=== PATIENT | male | born 1970 | race Caucasian/White ===

== ENCOUNTER 2017-07-17 19:13 | Emergency (ER) | payer MEDICAID ==
[2017-07-17 20:03] LABS: BASOPHILS 0.4 % (0-2); EOSINOPHILS 1.9 % (0-7); HEMATOCRIT 28.9 % (42.0-54.0); HEMOGLOBIN 9.2 g/dL (13.5-17.5); IMMATURE GRANULOCYTES 0.2 % (0-5); LYMPHOCYTES 30.4 % (15-50); MCH 24.9 pg (26.0-34.0); MCHC 31.8 g/dL (31.0-37.0); MCV 78.3 fL (80.0-100.0); MEAN PLATELET VOLUME 9.8 fL (7.4-10.4); MONOCYTES 5.2 % (2-11); NEUTROPHILS 61.9 % (40-80); PLATELET COUNT 171 10x3/uL (130-400); RBC 3.69 10x6/uL (4.20-6.10); RDW 15.1 % (11.5-14.5); WBC 5.2 10x3/uL (4.8-10.8)
[2017-07-17 20:21] LABS: ALBUMIN 3.1 g/dL (3.4-5.0); ALKALINE PHOSPHATASE 134 U/L (46-116); ALT (SGPT) 16 U/L (10-68); BILIRUBIN - TOTAL 0.17 mg/dL (0.2-1.3); CALC OSMOLALITY 293 mosm/kg (275-300); CALCIUM 8.9 mg/dL (8.5-10.1); CARBON DIOXIDE 25.1 mmol/L (21.0-32.0); CHLORIDE - SERUM 104 mmol/L (98-107); CREATININE - SERUM 1.7 mg/dL (0.6-1.3); GLUCOSE 334 mg/dL (74-106); POTASSIUM - SERUM 4.5 mmol/L (3.5-5.1); PROTEIN - SERUM 7.2 g/dL (6.4-8.2); SODIUM 139 mmol/L (136-145); UREA NITROGEN 22 mg/dL (7-18); eGFR NON AFRICAN AMERICAN 46 mL/min (90-120)
[2017-07-17 20:28] LABS: CHOL - HDL RATIO 4.1 ratio (2.3-4.9); CHOLESTEROL, TOTAL 128 mg/dL (0-200); CKMB 1.3 U/L (0.0-3.6); CREATINE KINASE 191 UL (21-232); HDL CHOLESTEROL 31 mg/dL (32-96); LDL CHOLESTEROL 62 mg/dL (0-100); TRIGLYCERIDE 179 mg/dL (30-200)
[2017-07-17 20:29] LABS: TROPONIN-I < 0.017 ng/mL (0.000-0.060)
[2017-09-02 11:48] VITALS: BMI 34.6
== END 2017-07-18 03:07 | disposition home or self-care (01) ==
LOC: D.ER 19:13
PROVIDERS: Emergency Medicine
DX: J20.9 Acute bronchitis, unspecified (principal); J06.9 Acute upper respiratory infection, unspecified; I50.9 Heart failure, unspecified; I51.7 Cardiomegaly; Z95.0 Presence of cardiac pacemaker; E11.9 Type 2 diabetes mellitus without complications; I10 Essential (primary) hypertension

== ENCOUNTER 2017-09-01 18:20 | Observation (INO) | payer MEDICARE ==
[~2017-09-01] VITALS: Ht 188 cm; Wt 123.3 kg
--- NOTE | ~2017-09-01 | OP ---
PATIENT NAME: ALEXANDER ASHTON MEDICAL RECORD: [id number] :74 LOCATION:D.M2 D.2134 ADMISSION DATE:09/02/17 SURGEON: CRUZ SHERIDAN MD DATE OF OPERATION: 09/02/2017 DATE OF SERVICE: 09/02/2017 PROCEDURES: 1. Left heart catheterization. 2. Selective coronary angiography. 3. Left ventriculogram. INDICATION: Chest pain, cardiomyopathy. PROCEDURE IN DETAIL: After informed consent was obtained and after a detailed explanation of risks, benefits as well as alternative therapies, the patient elected to proceed with angiogram and heart catheterization. The right femoral area was prepped and draped in normal sterile fashion. Right femoral artery was cannulated via modified Seldinger technique with placement of 6-Azerbaijani sheath. All catheters exchanged through this sheath. FINDINGS: Left ventriculogram was performed in the standard 30-degree ESTRADA view, reveals global hypokinesis throughout all segments. Overall ejection fraction is markedly reduced at 20%. SELECTIVE CORONARY ANGIOGRAPHY: Left main, left anterior descending, left circumflex, right coronary are smooth-walled vessels with no angiographic evidence of coronary artery disease. OVERALL IMPRESSION: 1. No angiographic evidence of coronary artery disease. 2. Nonischemic cardiomyopathy. Center medical management on treatment of cardiomyopathy. Chest pain is either secondary to the cardiomyopathy or noncardiac in etiology. TRANSINT:[id number] Voice Confirmation ID: [id number] DOCUMENT ID: [id number] CRUZ SHERIDAN MD at 1025 CC: [id number] DICTATION DATE: 09/02/17 1546 ASSOCIATE PROFESSOR OF ART HISTORY: 09/02/178 DIS IN 09/03/17 [place] [id number] [place] [id number]
--- NOTE | ~2017-09-01 | HEMODYNAMI ---
PATIENT:ALEXANDER ASHTON MEDICAL RECORD: [id number] : 74 LOCATION:[facility] D2134 ADMISSION DATE: 09/02/17 Generatedon:09/02/201715:47 Patient name: ALEXANDER ASHTON Patient #: [id number] SSN: : 1970 Date of study: 09/02/2017 Page: Of Hemodynamic Procedure Report Patient Data Patient Demographics Procedure consent was obtained First Name: ALEXANDER Gender: Male Last Name: DAISHA : 1970 Patient #: [id number] Age: 47 year(s) Race: Unknown Additional ID: [id number] Contact details Address: [address] [place] [address] State: [place] City: [place] Zip code: [address] Past Medical History Allergies: No known allergies Admission Admission Data Admission Date: 09/02/2017 Admission Time: 2:13 Admit Source: Other Room #: D.2134 Procedure Procedure Types Cath Procedure Diagnostic Procedure LHC LH w/Coronaries Miscellaneous Procedures Moderate Sedation up to 15 minutes Procedure Description Procedure Date Procedure Date: 09/02/2017 Procedure Start Time: 15:37 Procedure End Time: 15:46 Procedure Staff Name Function Al Pierson MD Performing Physician Jesse Paige RT Monitor Natalie Sosa RT Scrub Nikos Barnett RN Nurse Procedure Data Cath Procedure Fluoroscopy Diagnostic fluoroscopy Total fluoroscopy Time: 0.8 time: 0.8 min min Diagnostic fluoroscopy Total fluoroscopy dose: 348 dose: 348 mGy mGy Contrast Material Contrast Material Type Amount (ml) Isovue 300 51 Entry Location Entry Primary Successful Side Size Upsize Upsize Entry Closure Succes sful Closure Location (Fr) 1 (Fr) 2 (Fr) Remarks Device Remarks Femoral Right 5 Fr Exoseal artery Estimated blood loss: 5 ml Diagnostic catheters Device Type Used For End Catheter Placement MULTIPACK Pigtail 5 Fr Procedure catheter MULTIPACK JL 4.0 5Fr Procedure catheter MULTIPACK 3DRC 5Fr Procedure catheter Procedure Complications No complications Procedure Medications Medication Administration Route Dosage Oxygen NC 2 l/min Lidocaine 2% added to field 20 Heparin Flush Bag added to field 2 bags (1000units/500ml NS) 0.9% NaCl I.V. 100 ml/hr Versed I.V. 1 mg Fentanyl I.V. 50 mcg Versed I.V. 1 mg Fentanyl I.V. 50 mcg Hemodynamics Rest Heart Rate: 97 (bpm) Snapshots Pre Cath Intra NCS Post Cath Vital Signs Time Heart Resp SPO2 etCO2 NIBP (mmHg) Rhythm Pain Sedation Rate (ipm) (%) (mmHg) Status Level (bpm) 15:21:46 94 18 94 110/87(102) NSR 7 (11) 10(A) , Very intense 15:26:28 94 16 98 49.1 124/86(101) NSR 7 (11) 10(A) , Very intense 15:32:00 94 16 98 44.7 136/70(81) NSR 7 (11) 10(A) , Very intense 15:36:49 93 15 98 46.2 115/85(107) NSR 7 (11) 10(A) , Very intense 15:41:36 91 16 97 43.2 130/67(116) NSR 7 (11) 9(A) , Very intense 15:46:14 92 16 96 42.4 124/79(112) NSR 7 (11) 10(A) , Very intense Medications Time Medication Route Dose Verified Delivered Reason Notes Effe ctiveness by by 15:22:09 Oxygen NC 2 Al Longoriaie used for l/min Dangelo Barnett RN procedure 15:22:16 Lidocaine 2% added 20ml Al Melendez for local to vial Dangelo Pierson MD anesthetic field 15:22:22 Heparin Flush added 2 Al Al used for Bag to bags Dangelo Pierson MD procedure (1000units/500ml field NS) 15:22:31 0.9% NaCl I.V. 100 Alshelbie Longoriaie Per ml/hr Dangelo Barnett RN physician 15:36:26 Versed I.V. 1 mg Al Knott for Dangelo Barnett RN sedation 15:36:33 Fentanyl I.V. 50 Al Longoriaie for mcg Dangelo Barnett RN sedation 15:40:48 Versed I.V. 1 mg Al Knott for Dangelo Barnett RN sedation 15:40:52 Fentanyl I.V. 50 Al Knott [facility] [place] Miriam MD Barnett RN sedation Procedure Log Time Note 15:03:13 Informed consent obtained and on chart 15:03:17 Admit Source: Other 15:03:34 Diagnostic Cath status Elective 15:03:35 Nikos Barnett RN sent for patient. Start room use. 15:03:36 Time tracking: Regular hours 15:03:40 Plan of Care:Hemodynamics will remain stable., Cardiac rhythm will remain stable., Comfort level will be maintained., Respiratory function will remain adequate., Patient/ family verbilizes understanding of procedure., Procedure tolerated without complication., Recovers from procedure without complications.. 15:07:10 H&P Date Dictated: 09/02/2017 Within 30 days and on chart.. 15:07:58 Lab Result : BUN 23 mg/dl 15:07:58 Lab Result : Creatinine 1.7 mg/dl 15:07:58 Lab Result : Hemoglobin 10.2 g/dl 15:07:59 Lab Result : Hematocrit 31.7 % 15:08:21 Lab results completed and on chart. 15:10:49 Patient received from Med II to CCL 1 Alert and oriented. Tansferred to table in Supine position. 15:10:50 Warm blankets applied, and karen hugger turned on for patient comfort. 15:10:51 Correct patient and procedure confirmed by team. 15:10:51 ECG and BP/O2 sat monitors applied to patient. 15:10:52 Pre-procedure instructions explained to patient. 15:10:53 Pre-op teaching completed and patient verbalized understanding. 15:10:55 Family in patients room. 15:10:56 Patient NPO since Midnight. 15:11:06 Patient allergic to No known allergies 15:11:07 Is the patient allergic to Iodine/contrast media? No. 15:20:47 Vital chart was started 15:21:42 Patient diabetic? Yes. 15:21:43 If diabetic: On Metformin? No 15:21:45 Previous problem with sedation/anesthesia? No ? 15:21:46 Snore? No 15:21:47 Sleep apnea? No 15:21:48 Deviated septum? No 15:21:48 Opens mouth fully? Yes 15:21:49 Sticks out tongue? Yes 15:21:50 Airway obstruction? No ? 15:21:52 Dentures? No ? 15:21:57 ACC The patient was administered the following blood thiners within the last 24 hours: ACCLovenox 15:22:00 Is patient on blood thinner?Yes 15:22:09 Oxygen 2 l/min NC was administered by Nikos Barnett RN; used for procedure; 15:22:16 Lidocaine 2% 20ml vial added to field was administered by Al Pierson MD; for local anesthetic; 15:22:22 Heparin Flush Bag (1000units/500ml NS) 2 bags added to field was administered by Al Pierson MD; used for procedure; 15:22:31 0.9% NaCl 100 ml/hr I.V. was administered by Nikos Barnett RN; Per physician; 15:22:36 Pre procedure: right dorsailis pedis pulse 1+ Palpable, but thready & weak; easily obliterated 15:22:39 Patient pain scale 7/10 ?. 15:22:43 IV patent on arrival in right hand with 0.9% NaCl at KVO. 15:22:47 Right groin area was prepped with chlora-prep and draped in sterile fashion 15:22:48 Alarms reviewed by R. N. 15:22:49 Sharps counted by scrub and verified by R.N. 15:22:51 Use device set Femoral Dx 15:22:54 ACIST Manifold (79093) opened to sterile field. 15:22:55 ACIST Hand Control (44008) opened to sterile field. 15:22:56 ACIST Syringe (98306) opened to sterile field. 15:22:56 Bag Decanter () opened to sterile field. 15:22:57 Medline Cath Pack ([id number]) opened to sterile field. 15:22:59 Tegaderm 4 x 4 (1626W) opened to sterile field. 15:23:02 PERCUTANEOUS ENTRY 19GA needle opened to sterile field. 15:23:03 SHEATH 5FR Mears (YPE554) opened to sterile field. 15:23:03 DIAGNOSTIC WIRE .035 260cm J wire (611641) opened to sterile field. 15:23:04 DIAGNOSTIC Multipack 5Fr catheter set (CV2921) opened to sterile field. 15:23:11 Baseline sample Acquired. 15:23:15 Rhythm: sinus tachycardia 15:25:10 IV Extension Set opened to sterile field. 15::35 Physician paged 15:29:07 Zero performed for pressure channel P1 15::43 Physician arrived 15:: --------ALL STOP TIME OUT------ 15:35:44 Final Timeout: patient, procedure, and site verified with staff and physician. All members of the team are in agreement. 15:35:46 Right groin site verified by team. 15:35:49 Physical assessment completed. ASA score P 2 - A patient with mild systemic disease as per Al Pierson MD. 15:35:52 Sedation plan: IV Moderate Sedation Medication:Versed, Fentanyl 15:36:26 Versed 1 mg I.V. was administered by Nikos Barnett RN; for sedation; 15:36:33 Fentanyl 50 mcg I.V. was administered by Nikos Barnett RN; for sedation; 15:37:24 Procedure started. 15:37:25 Full Disclosure recording started 15:37:27 Local anesthetic to right femoral artery with Lidocaine 2% by Al Pierson MD.INITIAL ACCESS ONLY 15:38:04 A 5 Fr sheath was inserted into the Right Femoral artery 15:38:50 A MULTIPACK Pigtail 5 Fr catheter was advanced over the wire and used for Procedure. 15:39:00 LV gram done using ESTRADA 15:39:02 Injector settings: Ml/sec: 10, Volume: 20, 15:39:12 EF : 20 % 15:39:14 Catheter exchanged over wire. 15:39:37 A MULTIPACK JL 4.0 5Fr catheter was advanced over the wire and used for Procedure. 15:39:59 LCA angiography performed. 15:40:36 Catheter exchanged over wire. 15:40:42 A MULTIPACK 3DRC 5Fr catheter was advanced over the wire and used for Procedure. 15:40:43 EXOSEAL 5Fr (EX500) opened to sterile field. 15:40:48 Versed 1 mg I.V. was administered by Nikos Barnett RN; for sedation; 15:40:52 Fentanyl 50 mcg I.V. was administered by Nikos Barnett RN; for sedation; 15:41:21 RCA angiography performed. 15:41:28 Catheter removed. 15:41:51 Sheath removed intact; hemostasis achieved with Exoseal to the Right Femoral artery. 15:41:54 Procedure ended.(Physican Out) 15:44:31 Fluoroscopy time 00.80 minutes. 15:44:36 Fluoroscopy dose: 348 mGy 15:44:36 Flurop Dose total: 348 15:44:40 Contrast amount:Isovue 300 51ml. 15:44:41 Sharps counted by scrub and verified by R.N. 15:44:51 Insertion/operative site no bleeding no hematoma. 15:44:54 Post-op/insertion site Right Femoral artery dressed using a 4 x 4 and Tegaderm. 15:44:57 Post right femoral artery:stable, soft, clean and dry 15:44:59 Post Procedure Pulses reassessed and unchanged 15:45:16 Post-procedure physical assessment completed. ASA score P 2 - A patient with mild systemic disease as per Al Pierson MD. 15:45:22 Post procedure rhythm: unchanged. 15:45:24 Estimated blood loss: 5 ml 15:45:25 Post procedure instruction explained to patient.Patient verbalizes understanding. 15:45:26 Patient needs reinforcement of post procedure teaching. 15:45:32 Procedure type changed to Cath procedure, Diagnostic procedure, LHC, LHC w/Coronaries, Miscellaneous Procedures, Moderate Sedation up to 15 minutes 15:45:46 Procedure and supply charges have been captured, reviewed, submitted and are correct. 15:45:48 Procedure Complication : No complications 15:45:50 Vital chart was stopped 15:45:50 See physician's report for complete and final results. 15:45:52 Report given to PCU. 15:45:58 Patient transfered to PCU with Stretcher. 15:46:01 Procedure ended. 15:46:01 Full Disclosure recording stopped 15:46:04 End room use (Document Last) Device Usage Item Name Manufacture Quantity Catalog Hospital Part Current Minimal Lot# / Number Charge Number Stock Stock Serial# Code ACIST Acist 1 18292 469222 265283 971028 5 Manifold Medical (58139) Systems Inc ACIST Hand Acist 1 84536 479613 314335 407614 5 Control Medical (03804) Systems Inc ACIST Acist 1 31642 460637 022621 222924 20 Syringe [employer]Maven.com (38728) Systems Inc Bag Decanter Microtek 1 036828 81264 132774 5 () Medical Inc. Medline Cath Cardinal 1 [id number] 411969 43969 061623 5 Pack Health ([id number]) Tegaderm 4 x 3M 1 1626W 133104 681358 639281 5 4 (1626W) PERCUTANEOUS Cook Medical 1 T68703 735532 232702 5 ENTRY 19GA needle SHEATH 5FR Terumo 1 QJM522 879563 115926 161586 40 Mears (ZKF790) DIAGNOSTIC St Jarad 1 792042 560666 207624 933083 30 WIRE .035 260cm J wire (147463) DIAGNOSTIC Cardinal 1 OY8620 720853 46151 158721 30 Multipack Health 5Fr catheter set (KF6100) IV Extension Hospira 1 02376-03 811221 57641 227490 5 Set MULTIPACK Cardinal 1 389524 5 Pigtail 5 Fr Health catheter MULTIPACK JL Cardinal 1 006431 5 4.0 5Fr Health catheter MULTIPACK Cardinal 1 566779 5 3DRC 5Fr Health catheter EXOSEAL 5Fr Cardinal 1 EX500 924481 849896 776135 10 (EX500) Health Signature Audit [place] Stage Time Signature Unsigned Intra-Procedure 09/02/2017 Jesse Paige 3:47:28 PM RT(R) Signatures Monitor : Jesse Paige RT Signature : Date : Time : [place] [id number] [place] [address]
--- NOTE | ~2017-09-01 | DS ---
PATIENT:ALEXANDER ASHTON :74 MEDICAL RECORD: [id number] DISCHARGE SUMMARY ADMISSION DATE: 09/02/17 DISCHARGE DATE: 09/03/17 DIAGNOSES: 1. Nonischemic cardiomyopathy. 2. Chest pain. 3. Hematemesis, gastroesophageal reflux disease. HISTORY AND HOSPITAL COURSE: This is a gentleman, who has a known cardiomyopathy. Ejection fraction in the 20% range. He is followed by grinding machine tender in [place]. He presented with chest pain. He has not had a cardiac catheterization. He, however, underwent cardiac catheterization revealing no significant coronary artery disease. Ejection fraction was in the 20% range. His chest pain is most likely secondary to GERD. He had minimal hematemesis. He was started on GI-directed therapy. His chest pain totally resolved. He was discharged home with muen-kuk-sjjygww Nexium or Prilosec twice a day. He will follow up with his physician in [place], especially if the hematemesis continues. TRANSINT:[id number] Voice Confirmation ID: [id number] DOCUMENT ID: [id number] CRUZ SHERIDAN MD at 1025 CC: [id number] DICTATION DATE: 09/03/17 1018 ANATOMY PROFESSOR: 09/04/17 0033 DIS IN 09/03/17 [place] [address] [place] [address]
--- NOTE | ~2017-09-01 | EC ---
PATIENT:ALEXANDER ASHTON DATE OF SERVICE: 09/02/17 SEX: M MEDICAL RECORD: [id number] DATE OF : 74 LOCATION:D.M2 D.213 AGE OF PATIENT: 47 ADMISSION DATE: 09/02/17 REFERRING PHYSICIAN: INTERPRETING PHYSICIAN: CRUZ SHERIDAN MD ECHOCARDIOGRAM REPORT ECHO CHARGES CLINICAL DIAGNOSIS: ECHOCARDIOGRAPHIC MEASUREMENTS (adult normal given) AC root (d.<3.7cm) cm LV Septum d (<1.2 cm> cm Valve Excursion cm LV Septum (systole) cm Left Atria (s.<4.0cm> cm LVPW d(<1.2cm) cm RV (d.<2.3cm) cm LVPW (sytole) cm LV diastole(<5.6CM) cm MV E-F(>70mm/sec) cm LV systole cm LVOT Diameter cm MV exc.(>10mm) cm Est.ejection fraction (50-75%) % Pericardial Effusion DOPPLER: LVIT cm/sec A cm/sec E cm/sec LA cm/sec RVSP mmHg LVOT cm/sec AOP1/2T m/s Asc. Ao cm/sec RVOT cm/sec RA cm/sec PA cm/sec AV Gradient Peak mmHg AV Mean mmHg AV Area cm MV Gradient Peak mmHg MV Mean mmHg MV Area cm COMMENTS: Generator Rebuilder: Solid Waste Engineer: GRADY DATE OF SERVICE: 09/02/2017 PROCEDURE: Echocardiogram. FINDINGS: 1. Left ventricular chamber size is dilated. Left ventricular systolic function is markedly reduced, overall ejection fraction 20%. 2. Left atrium, right atrium, and right ventricle chamber sizes are dilated giving 4-chamber dilatation. Left atrium measures 4.7 cm. 3. Valvular structures have normal structure and motion. ECHOCARDIOGRAM REPORT [id number] ALEXANDER ASHTON 4. Doppler interrogation reveals moderate mitral regurgitation, moderate tricuspid regurgitation, no other valvular insufficiency or stenosis. Pulmonary systolic pressure is estimated 41 mmHg. 5. No evidence of pericardial effusion or left ventricular thrombus. TRANSINT:[id number] Voice Confirmation ID: [id number] DOCUMENT ID: [id number] CRUZ SHERIDAN MD at 1025 CC: [id number] DICTATION DATE: 09/02/17 1228 LAW RESEARCHER: 09/02/17 1240 DIS IN 09/03/17 [facility] [address] [place] [address]
[2017-09-01 19:10] LABS: HEMATOCRIT 31.7 % (42.0-54.0); HEMOGLOBIN 10.2 g/dL (13.5-17.5); LYMPHOCYTES 32.7 % (15-50); MCH 25.8 pg (26.0-34.0); MCHC 32.2 g/dL (31.0-37.0); MCV 80.3 fL (80.0-100.0); MEAN PLATELET VOLUME 9.5 fL (7.4-10.4); NEUTROPHILS 59.7 % (40-80); PLATELET COUNT 176 10x3/uL (130-400); RBC 3.95 10x6/uL (4.20-6.10); RDW 16.4 % (11.5-14.5)
[2017-09-01 19:23] LABS: ALBUMIN 3.3 g/dL (3.4-5.0); ALKALINE PHOSPHATASE 134 U/L (46-116); ALT (SGPT) 17 U/L (10-68); BILIRUBIN - TOTAL 0.18 mg/dL (0.2-1.3); CALC OSMOLALITY 289 mosm/kg (275-300); CALCIUM 8.8 mg/dL (8.5-10.1); CARBON DIOXIDE 28.1 mmol/L (21.0-32.0); CHLORIDE - SERUM 105 mmol/L (98-107); CREATININE - SERUM 1.7 mg/dL (0.6-1.3); GLUCOSE 190 mg/dL (74-106); POTASSIUM - SERUM 3.9 mmol/L (3.5-5.1); PROTEIN - SERUM 7.1 g/dL (6.4-8.2); SODIUM 141 mmol/L (136-145); UREA NITROGEN 23 mg/dL (7-18); eGFR NON AFRICAN AMERICAN 46 mL/min (90-120)
[2017-09-01 19:34] LABS: CKMB 0.8 U/L (0.0-3.6); CREATINE KINASE 264 UL (21-232); TROPONIN-I 0.026 ng/mL (0.000-0.060)
[2017-09-02 02:07] LABS: CKMB 0.8 U/L (0.0-3.6); CREATINE KINASE 223 UL (21-232); TROPONIN-I 0.031 ng/mL (0.000-0.060)
[2017-09-02] MEDS ORDERED: FLOMAX0.4 MG PO (03:29)
[2017-09-02] MEDS ORDERED: COREG25 MG PO (03:29)
[2017-09-02] MEDS ORDERED: CYCLOBENZAPRINE10 MG PO (03:30)
[2017-09-02] MEDS ORDERED: LASIX40 MG PO (03:30)
[2017-09-02] MEDS ORDERED: SEROQUEL200 MG PO (03:30)
[2017-09-02] MEDS ORDERED: ASPIRIN325 MG PO (03:31)
[2017-09-02] MEDS ORDERED: NOVOLOG MIX 70/10 ML SQ ×2 (03:32)
[2017-09-02 03:33] VITALS: BP 143/92; BMI 34.7
[2017-09-02 07:55] VITALS: BP 154/98
[2017-09-02 07:58] LABS: CKMB 0.9 U/L (0.0-3.6); CREATINE KINASE 211 UL (21-232); TROPONIN-I 0.029 ng/mL (0.000-0.060)
[2017-09-02 11:20] VITALS: BP 102/56
[2017-09-02 11:48] VITALS: Ht 188 cm; Wt 123.3 kg
[2017-09-02 13:56] LABS: CKMB 0.8 U/L (0.0-3.6); CREATINE KINASE 201 UL (21-232); TROPONIN-I 0.023 ng/mL (0.000-0.060)
[2017-09-02 19:00] VITALS: BP 156/88
[2017-09-03 04:00] VITALS: BP 146/76
[2017-09-03 08:46] VITALS: BP 143/89
[2017-09-03] MEDS ORDERED: NEXIUM40 MG PO (11:07)
[2017-09-03 11:23] VITALS: BP 132/84
[2017-09-03 14:51] VITALS: BP 130/82
[2017-09-03 15:39] VITALS: BP 131/81
== END 2017-09-03 16:55 | disposition home or self-care (01) ==
LOC: D.ER 18:20 → D.M2 09-02 02:13 → OBSVTIME 09-02 02:13 → D.M2 09-03 16:55
PROVIDERS: Family Medicine
DX: R07.89 Other chest pain (principal); I42.9 Cardiomyopathy, unspecified; E11.9 Type 2 diabetes mellitus without complications; I11.0 Hypertensive heart disease with heart failure; I50.9 Heart failure, unspecified; I48.91 Unspecified atrial fibrillation; J44.9 Chronic obstructive pulmonary disease, unspecified; K21.9 Gastro-esophageal reflux disease without esophagitis; K92.0 Hematemesis; Z95.0 Presence of cardiac pacemaker

== ENCOUNTER 2017-11-22 23:17 | Inpatient (IN) | payer MEDICARE ==
[~2017-11-22] VITALS: Ht 188 cm; Wt 127.0 kg
--- NOTE | ~2017-11-22 | OP ---
PATIENT NAME: ALEXANDER ASHTON MEDICAL RECORD: [id number] :74 LOCATION:D.M2 D.2118 ADMISSION DATE:11/24/17 SURGEON: MOHIT FUNK MD DATE OF OPERATION: 11/26/2017 PREOPERATIVE DIAGNOSES: 1. Gastric antral vascular ectasias. 2. Anemia. POSTOPERATIVE DIAGNOSES: 1. Gastric antral vascular ectasias. 2. Anemia. PROCEDURE: Esophagogastroduodenoscopy with argon plasma coagulation therapy to areas of gastric antral vascular ectasias (GAVE). SURGEON: Mohit Funk MD UPHOLSTERY TECH: None. BLOOD LOSS: Minimal. ANESTHESIA: General. COMPLICATIONS: None. The risks, possible complications, and alternatives to the procedure were explained to the patient. He elects to proceed. OPERATIVE COURSE: The patient was conveyed to the operating room electively on 11/26/2017. General anesthesia was induced by the anesthesia staff. A bite block was inserted. A gastroscope was inserted into the mouth. It was advanced easily into the hypopharynx. The esophagus was easily intubated as were the stomach and duodenum. Upon withdrawal, retroflexed and angulus views were obtained. No biopsies were obtained. I advanced the argon plasma coagulation tip. Utilizing the esophageal setting in the forced mode, I ablated all of the gastric antral vascular ectasias that I could identify. I then desufflated the stomach. The endoscope was then withdrawn under direct vision. TRANSINT:[id number] Voice Confirmation ID: [id number] DOCUMENT ID: [id number] MOHIT FUNK MD at 1158 CC: [id number] DICTATION DATE: 11/26/17 162 BUSINESS SERVICES COORDINATOR: 11/26/172028 DIS IN 11/27/17 [facility] [address] [place] [id number]
--- NOTE | ~2017-11-22 | HP ---
PATIENT: ALEXANDER ASHTON MEDICAL RECORD: [id number] ACCOUNT: [id number] LOCATION:[address] : 74 ADMISSION DATE: 11/24/17 HISTORY AND PHYSICAL EXAMINATION DATE OF SERVICE: 11/23/2017 DIAGNOSES: 1. Gastrointestinal bleed. 2. Gastroesophageal reflux disease. 3. Cardiomyopathy, nonischemic. HISTORY OF PRESENT ILLNESS: This is a 47-year-old gentleman known to us with a nonischemic cardiomyopathy, who presented in August, underwent evaluation for the cardiomyopathy, had no coronary artery disease. Echocardiogram and cath revealed ejection fraction in the 15% to 20% range. At that time, his symptoms were felt to be secondary to GI-related symptomatology. He was started on Protonix here in the hospital; however, did not follow up with this. Yesterday, he began having chest pain, vomited blood, and presented to the Emergency Room. He was admitted to our service because of the chest pain. PHYSICAL EXAMINATION: GENERAL APPEARANCE: Well-nourished, well-developed, appears stated age. Level of distress, comfortable. PSYCHIATRIC: Mental status, alert, normal affect. Orientation, oriented to time, place and person. EYES: Lids and conjunctiva, noninjected. No discharge, no pallor. ENT: Lips, teeth, gums, normal dentition. Oropharynx, no cyanosis, no pallor. NECK: Carotid arteries, bilateral normal upstroke, no bruits, no thrills. JUGULAR VEINS: No jugular venous pressure or distention. CERVICAL LYMPH NODES: Nontender, nonenlarged. THYROID: Not enlarged. Nontender. No nodules. LUNGS: Respiratory effort, unlabored. CHEST: Normal curvature. No thoracic deformity. No chest wall tenderness. Percussion, resonant. Auscultation, clear. No wheezes, no rales, no rhonchi. CARDIOVASCULAR: Precordial exam, nondisplaced. No heaves or pericardial thrills. Rate and rhythm, regular. Heart sounds, normal S1, normal S2. No S3, no gallop, no rub. Systolic murmur, not heard. Diastolic murmur, not heard. EXTREMITIES: No cyanosis, no edema. Peripheral pulses, full and equal in all extremities, except as noted. No bruits appreciated. ABDOMEN: Soft, nondistended. Normal aorta. No bruit. Nontender. No masses. Liver, nontender, no hepatomegaly. Spleen, nontender, no splenomegaly. MUSCULOSKELETAL: No joint tenderness. No joint swelling. No erythema. NEUROLOGICAL: Normal gait, normal strength, normal tone. SKIN: Warm and dry. REVIEW OF SYSTEMS: The patient reports easy bruising but reports no swollen glands. The patient reports no fever, no night sweats, no significant weight gain, no significant weight loss. No significant exercise tolerance. The patient reports no dry eyes, no irritation, no vision change. Patient reports no difficulty hearing and no ear pain. Patient reports no frequent nose bleeds or nose and sinus problems. Patient reports on arm pain on exertion. No shortness of breath while lying down. No history of heart murmur. Patient reports no cough, no wheezing or coughing up blood. Patient reports no abdominal pain, no vomiting. Normal appetite. No diarrhea and not vomiting HISTORY AND PHYSICAL [id number] DAISHA,ALEXANDER blood. No nausea and no constipation. Patient reports no incontinence. No difficulty urinating. No hematuria. No increased frequency. Patient reports no muscle aches. No weakness, no arthralgias, no back pain. No swelling of the extremities. Patient reports no abnormal mole, no jaundice, no rashes. Reports no loss of consciousness. No weakness and no numbness. No seizures, dizziness, or headaches. The patient reports no depression, no sleep disturbance, feeling safe in a relationship and no alcohol abuse. Patient reports on fatigue. Reports no runny nose or sinus pressure. No itching, no hives, and no frequent sneezing. OVERALL IMPRESSION: This is all GI in etiology. He wants to be seen by GI for possible endoscopy. At this time, would agree. We will defer GI therapy to GI after they have seen him. TRANSINT:[id number] Voice Confirmation ID: [id number] DOCUMENT ID: [id number] CRUZ SHERIDAN MD at 0845 CC: [id number] DICTATION DATE: 11/23/1759 REFRIGERATOR CAR ICER: 11/23/17 0956 [facility] [address] [place] [address]
--- NOTE | ~2017-11-22 | DS ---
PATIENT:ALEXANDER ASHTON :74 MEDICAL RECORD: [id number] DISCHARGE SUMMARY ADMISSION DATE: 11/24/17 DISCHARGE DATE: 11/27/17 DISCHARGE DIAGNOSES: 1. Chest pain, gastrointestinal etiology. 2. Status post laser sclerotherapy for arteriovenous malformations. HOSPITAL COURSE: Mr. Ashton presented with chest pain, found to be GI etiology, found to be AVMs in his stomach, underwent laser sclerotherapy for this. Discharged home. Follow up with GI in 1 month. No cardiac followup necessary. TRANSINT:[id number] Voice Confirmation ID: [id number] DOCUMENT ID: [id number] CRUZ SHERIDAN MD at 0956 CC: [id number] DICTATION DATE: 11/27/17845 ACCOUNTING LECTURER: 11/27/17 1512 DIS IN 11/27/17 [facility] [address] [place] [address]
--- NOTE | ~2017-11-22 | CN ---
PATIENT NAME:ALEXANDER ASHTON MEDICAL RECORD: [id number] : 74 LOCATION:D. D.2118 ADMIT DATE: 11/24/17 ACCOUNT: [id number] CONSULTING PHYSICIAN: GRAY FUNK MD REFERRING PHYSICIAN: CRUZ SHERIDAN MD DATE OF CONSULTATION: 11/24/2017 ADDENDUM CHIEF COMPLAINT: Anemia. HISTORY OF PRESENT ILLNESS: The patient is anemic. He has undergone upper endoscopy by Dr. Slaughter. I personally reviewed the findings with Dr. Slaughter. I personally reviewed the endoscopic pictures. The patient has gastric antral vascular ectasias. Bleeding from these may account for some or all of his anemia. The patient is going to undergo a colonoscopy tomorrow. I will plan for an upper endoscopy and ablation of the gastric antral vascular ectasias with the argon plasma credit administration specialist. Nothing aggravates. Nothing alleviates. The patient has band-like abdominal pain. His abdomen is nontender. This is a consultation note addendum. For the typed portion of the consult note, please see the chart. This would include past medical and surgical history, current medications, allergies, social history as well as family history. REVIEW OF SYSTEMS: Positive for abdominal pain. Currently, without nausea, vomiting, fever, chills, no chest pain. The review of systems is negative other than as is described above. PHYSICAL EXAMINATION: GENERAL: The patient does not appear acutely ill. He does not appear chronically ill. VITAL SIGNS: Reviewed. EARS: External ears appear normal. EYES: Extraocular movements are intact. NECK: Trachea is midline. CHEST: No intercostal retractions. PULMONARY: Nonlabored, no stridor. ABDOMEN: Nontender. EXTREMITIES: No peripheral cyanosis. INTEGUMENT: No rash, no ulcerations. PSYCHIATRIC: Normal affect. BACK: No thoracic kyphosis. IMPRESSION: 1. Anemia. 2. Gastric antral vascular ectasias. Perhaps bleeding from these blood vessels has caused all or some of the patient's microcytic anemia. PLAN: EGD with ablation of gastric antral vascular ectasias with the argon plasma credit administration specialist. TRANSINT:[id number] Voice Confirmation ID: [id number] DOCUMENT ID: [id number] CONSULT REPORT [id number] DAISHA,ALEXANDERGRAY SPEARS MD at 3173 CC: [id number] DICTATION DATE: 11/24/17 1737 LUMBER PLANER: 11/24/17 2307 DIS IN 11/27/17 [place] [id number] [place] [id number]
[~2017-11-22 23:17] MED LIST: ASPIRIN325 MG PO; COREG25 MG PO; CYCLOBENZAPRINE10 MG PO; FLOMAX0.4 MG PO; LASIX40 MG PO; NEXIUM40 MG PO; NOVOLOG MIX 70/10 ML SQ; SEROQUEL200 MG PO
[2017-11-23 00:34] LABS: BASOPHILS 0.6 % (0-2); EOSINOPHILS 3.2 % (0-7); HEMATOCRIT 32.8 % (42.0-54.0); HEMOGLOBIN 10.3 g/dL (13.5-17.5); IMMATURE GRANULOCYTES 0.2 % (0-5); LYMPHOCYTES 38.2 % (15-50); MCH 24.1 pg (26.0-34.0); MCHC 31.4 g/dL (31.0-37.0); MCV 76.8 fL (80.0-100.0); MEAN PLATELET VOLUME 10.6 fL (7.4-10.4); MONOCYTES 6.8 % (2-11); PLATELET COUNT 177 10x3/uL (130-400); RBC 4.27 10x6/uL (4.20-6.10); RDW 15.5 % (11.5-14.5); WBC 4.7 10x3/uL (4.8-10.8)
[2017-11-23 00:41] LABS: INR 1.02 (0.85-1.17)
[2017-11-23 00:43] LABS: APTT 26.7 SECONDS (22.8-39.4)
[2017-11-23 00:44] LABS: D-DIMER-QUANTITATIVE 2.19 ug/mLFEU (0.20-0.54)
[2017-11-23 00:57] LABS: ALBUMIN 3.1 g/dL (3.4-5.0); ALKALINE PHOSPHATASE 126 U/L (46-116); ALT (SGPT) 18 U/L (10-68); CALC OSMOLALITY 289 mosm/kg (275-300); CALCIUM 8.8 mg/dL (8.5-10.1); CARBON DIOXIDE 25.7 mmol/L (21.0-32.0); CHLORIDE - SERUM 110 mmol/L (98-107); CREATININE - SERUM 1.7 mg/dL (0.6-1.3); GLUCOSE 175 mg/dL (74-106); POTASSIUM - SERUM 4.4 mmol/L (3.5-5.1); PROTEIN - SERUM 7.2 g/dL (6.4-8.2); SODIUM 142 mmol/L (136-145); UREA NITROGEN 21 mg/dL (7-18); eGFR NON AFRICAN AMERICAN 46 mL/min (90-120)
[2017-11-23 01:03] LABS: CHOL - HDL RATIO 4.6 ratio (2.3-4.9); CHOLESTEROL, TOTAL 187 mg/dL (0-200); CKMB 1.3 U/L (0.0-3.6); CREATINE KINASE 361 UL (21-232); HDL CHOLESTEROL 41 mg/dL (32-96); LDL CHOLESTEROL 119 mg/dL (0-100); LDL-HDL RATIO 2.9 ratio (1.5-3.5); TRIGLYCERIDE 138 mg/dL (30-200); TROPONIN-I < 0.017 ng/mL (0.000-0.060)
[2017-11-23] MEDS ORDERED: ZESTRIL20 MG PO (05:23)
[2017-11-23 05:57] VITALS: BP 169/100; BMI 34.2
[2017-11-23 07:53] VITALS: BP 141/88
[2017-11-23 08:07] LABS: CREATINE KINASE 331 UL (21-232)
[2017-11-23 08:08] LABS: TROPONIN-I < 0.017 ng/mL (0.000-0.060)
[2017-11-23 11:11] VITALS: BP 186/88
[2017-11-23 13:10] LABS: CKMB 1.1 U/L (0.0-3.6); CREATINE KINASE 329 UL (21-232); TROPONIN-I < 0.017 ng/mL (0.000-0.060)
[2017-11-23 15:19] VITALS: BP 139/89
[2017-11-23 19:00] VITALS: BP 150/98
[2017-11-23 19:04] LABS: % SATURATION 12 % (15-55); IRON 32 ug/dl (35-150); TOTAL IRON BIND CAPACITY 250 ug/dl (260-445); UNSAT IRON BIND CAPACITY 218 ug/dl (150-375)
[2017-11-23 19:15] LABS: CKMB 1.2 U/L (0.0-3.6); CREATINE KINASE 250 UL (21-232); TROPONIN-I 0.024 ng/mL (0.000-0.060)
[2017-11-23 19:20] LABS: T4 THYROXIN - FREE 0.83 ng/dL (0.76-1.46); THYROID STIMULATING HORMONE 1.51 uIU/mL (0.36-3.74)
[2017-11-24] VITALS: BP 178/102
[2017-11-24 04:00] VITALS: BP 149/90
[2017-11-24 07:38] LABS: BASOPHILS 0.7 % (0-2); EOSINOPHILS 3.4 % (0-7); HEMATOCRIT 31.6 % (42.0-54.0); LYMPHOCYTES 34.1 % (15-50); MCH 24.4 pg (26.0-34.0); MCHC 31.6 g/dL (31.0-37.0); MCV 77.1 fL (80.0-100.0); MEAN PLATELET VOLUME 9.9 fL (7.4-10.4); MONOCYTES 6.6 % (2-11); NEUTROPHILS 55.2 % (40-80); PLATELET COUNT 157 10x3/uL (130-400); RDW 15.3 % (11.5-14.5); WBC 4.4 10x3/uL (4.8-10.8)
[2017-11-24 07:45] LABS: AMYLASE - SERUM 45 U/L (25-115); LIPASE 62 U/L (73-393)
[2017-11-24 08:09] LABS: ALBUMIN 2.5 g/dL (3.4-5.0); BILIRUBIN - TOTAL 0.27 mg/dL (0.2-1.3); CALCIUM 8.2 mg/dL (8.5-10.1); CARBON DIOXIDE 25.5 mmol/L (21.0-32.0); CREATININE - SERUM 1.3 mg/dL (0.6-1.3); PROTEIN - SERUM 6.2 g/dL (6.4-8.2)
[2017-11-24 08:18] LABS: POTASSIUM - SERUM 4.5 mmol/L (3.5-5.1)
[2017-11-24 09:53] VITALS: BP 165/105
[2017-11-24 12:49] VITALS: BP 157/91
[2017-11-24 16:30] VITALS: BP 169/100
[2017-11-24 20:00] VITALS: BP 163/89
[2017-11-25] VITALS: BP 142/94
[2017-11-25 04:00] VITALS: BP 173/104
[2017-11-25 07:01] LABS: BASOPHILS 0.5 % (0-2); EOSINOPHILS 3.3 % (0-7); HEMATOCRIT 33.4 % (42.0-54.0); HEMOGLOBIN 10.3 g/dL (13.5-17.5); LYMPHOCYTES 39.2 % (15-50); MCHC 30.8 g/dL (31.0-37.0); MCV 77.7 fL (80.0-100.0); MEAN PLATELET VOLUME 11.1 fL (7.4-10.4); MONOCYTES 7.1 % (2-11); NEUTROPHILS 49.9 % (40-80); RDW 15.3 % (11.5-14.5); WBC 4.2 10x3/uL (4.8-10.8)
[2017-11-25 07:04] LABS: ANION GAP 11.2 mmol/L (8-16); CALCIUM 8.2 mg/dL (8.5-10.1); CARBON DIOXIDE 27.5 mmol/L (21.0-32.0); CREATININE - SERUM 1.5 mg/dL (0.6-1.3); PLATELET COUNT 191 10x3/uL (130-400)
[2017-11-25 07:19] LABS: POTASSIUM - SERUM 3.7 mmol/L (3.5-5.1)
[2017-11-25 08:30] VITALS: BP 136/96
[2017-11-25 11:28] VITALS: BP 132/78
[2017-11-25 13:09] VITALS: Ht 188 cm; Wt 127.0 kg
[2017-11-25 15:45] VITALS: BP 153/97
[2017-11-25 19:00] VITALS: BP 162/90
[2017-11-26] VITALS: BP 167/111
[2017-11-26 04:00] VITALS: BP 153/91
[2017-11-26 08:21] VITALS: BP 195/122
[2017-11-26 08:21] LABS: FOLATE (FOLIC ACID) - SERUM 7.7 ng/mL (>3.0)
[2017-11-26 09:31] LABS: ANION GAP 10.5 mmol/L (8-16); CALCIUM 8.3 mg/dL (8.5-10.1); CARBON DIOXIDE 26.7 mmol/L (21.0-32.0); CREATININE - SERUM 1.4 mg/dL (0.6-1.3); POTASSIUM - SERUM 4.2 mmol/L (3.5-5.1)
[2017-11-26 10:18] LABS: BASOPHILS 0.5 % (0-2); EOSINOPHILS 3.1 % (0-7); HEMATOCRIT 32.5 % (42.0-54.0); HEMOGLOBIN 10.1 g/dL (13.5-17.5); IMMATURE GRANULOCYTES 0.3 % (0-5); MCH 23.9 pg (26.0-34.0); MCHC 31.1 g/dL (31.0-37.0); MCV 76.8 fL (80.0-100.0); MEAN PLATELET VOLUME 10.1 fL (7.4-10.4); MONOCYTES 8.7 % (2-11); NEUTROPHILS 52.4 % (40-80); PLATELET COUNT 170 10x3/uL (130-400); RBC 4.23 10x6/uL (4.20-6.10); RDW 15.3 % (11.5-14.5); WBC 3.9 10x3/uL (4.8-10.8)
[2017-11-26 13:17] LABS: SPE - A/G RATIO 0.9 (0.7-1.7); SPE - ALBUMIN 2.8 g/dL (2.9-4.4); SPE - ALPHA-1 GLOBULIN 0.1 g/dL (0.0-0.4); SPE - ALPHA-2 GLOBULIN 0.7 g/dL (0.4-1.0); SPE - GAMMA GLOBULIN 1.2 g/dL (0.4-1.8); SPE - M-SPIKE Not Observed g/dL (Not Observed); SPE - TOTAL PROTEIN 5.8 g/dL (6.0-8.5)
[2017-11-26 16:22] VITALS: BP 159/85
[2017-11-26 17:01] VITALS: BP 144/81
[2017-11-26 20:00] VITALS: BP 145/84
[2017-11-27] VITALS: BP 138/79
[2017-11-27 04:00] VITALS: BP 152/93
[2017-11-27 10:15] VITALS: BP 172/80
[2017-11-27 12:31] VITALS: BP 111/64
[2017-11-27 16:14] LABS: HGB - A 98.1 % (96.4-98.8); HGB - A2 1.9 % (1.8-3.2); HGB - INTERPRETATION Note: (()); HGB - SOLUBILITY Negative (Negative)
== END 2017-11-27 15:06 | disposition home or self-care (01) | DRG 378 ==
LOC: D.ER 23:17 → D.M2 11-23 04:07 → OBSVTIME 11-23 04:07 → D.M2 11-23 04:07
PROVIDERS: Family Medicine; Internal Medicine Gastroenterology; Internal Medicine Interventional Cardiology
PROC: 0DB78ZX Excision of Stomach, Pylorus, Via Natural or Artificial Opening Endoscopic, Diagnostic (ICD-10-PCS; principal; 2017-11-24 08:00)
PROC: 0DJD8ZZ Inspection of Lower Intestinal Tract, Via Natural or Artificial Opening Endoscopic (ICD-10-PCS; 2017-11-25)
PROC: 0W3P8ZZ Control Bleeding in Gastrointestinal Tract, Via Natural or Artificial Opening Endoscopic (ICD-10-PCS; 2017-11-26)
DX: K31.811 Angiodysplasia of stomach and duodenum with bleeding (principal); K22.10 Ulcer of esophagus without bleeding; I42.9 Cardiomyopathy, unspecified; K44.9 Diaphragmatic hernia without obstruction or gangrene; K29.70 Gastritis, unspecified, without bleeding; D50.9 Iron deficiency anemia, unspecified; E11.9 Type 2 diabetes mellitus without complications; I11.0 Hypertensive heart disease with heart failure; I50.9 Heart failure, unspecified; J44.9 Chronic obstructive pulmonary disease, unspecified; I48.91 Unspecified atrial fibrillation; Z95.0 Presence of cardiac pacemaker; K21.9 Gastro-esophageal reflux disease without esophagitis

== ENCOUNTER 2018-02-03 19:01 | Emergency (ER) | payer MEDICARE ==
[~2018-02-03] VITALS: Ht 188 cm; Wt 120.9 kg
[~2018-02-03 19:01] MED LIST changes: +ZESTRIL20 MG PO
[2018-02-03 19:14] VITALS: Ht 188 cm; Wt 120.9 kg
[2018-02-03 20:00] LABS: BASOPHILS 0.6 % (0-2); EOSINOPHILS 2.1 % (0-7); HEMATOCRIT 29.8 % (42.0-54.0); HEMOGLOBIN 9.2 g/dL (13.5-17.5); IMMATURE GRANULOCYTES 0.2 % (0-5); LYMPHOCYTES 33.5 % (15-50); MCH 23.7 pg (26.0-34.0); MCHC 30.9 g/dL (31.0-37.0); MCV 76.8 fL (80.0-100.0); MEAN PLATELET VOLUME 9.9 fL (7.4-10.4); MONOCYTES 5.1 % (2-11); NEUTROPHILS 58.5 % (40-80); PLATELET COUNT 165 10x3/uL (130-400); RBC 3.88 10x6/uL (4.20-6.10); WBC 5.3 10x3/uL (4.8-10.8)
[2018-02-03 20:08] LABS: APTT 27.7 SECONDS (22.8-39.4); INR 0.97 (0.85-1.17); PROTIME 12.5 SECONDS (11.6-15.0)
[2018-02-03 20:19] LABS: ALBUMIN 2.9 g/dL (3.4-5.0); ALKALINE PHOSPHATASE 142 U/L (46-116); ALT (SGPT) 16 U/L (10-68); BILIRUBIN - TOTAL 0.14 mg/dL (0.2-1.3); CALC OSMOLALITY 289 mosm/kg (275-300); CALCIUM 9.4 mg/dL (8.5-10.1); CARBON DIOXIDE 27.9 mmol/L (21.0-32.0); CHLORIDE - SERUM 103 mmol/L (98-107); CREATININE - SERUM 2.1 mg/dL (0.6-1.3); POTASSIUM - SERUM 4.7 mmol/L (3.5-5.1); PROTEIN - SERUM 7.2 g/dL (6.4-8.2); SODIUM 136 mmol/L (136-145); UREA NITROGEN 39 mg/dL (7-18); eGFR NON AFRICAN AMERICAN 36 mL/min (90-120)
[2018-02-03 20:20] LABS: GLUCOSE 252 mg/dL (74-106)
[2018-02-03 20:28] LABS: CKMB 1.8 U/L (0.0-3.6); CREATINE KINASE 294 UL (21-232); PRO BNP 435 pg/mL (0-125); TROPONIN-I < 0.017 ng/mL (0.000-0.060)
[2018-02-04 00:53] LABS: CKMB 2.1 U/L (0.0-3.6); CREATINE KINASE 294 UL (21-232)
[2018-02-04 00:55] LABS: TROPONIN-I < 0.017 ng/mL (0.000-0.060)
[2018-02-04] MEDS ORDERED: TYLENOL W/CODEI1 TAB PO (02:40)
[2018-02-04 04:12] VITALS: BP 149/92
== END 2018-02-04 03:10 | disposition home or self-care (01) ==
LOC: D.ER 19:01
PROVIDERS: Emergency Medicine; Family Medicine
DX: R07.9 Chest pain, unspecified (principal)

== ENCOUNTER 2018-02-05 13:26 | Inpatient (IN) | payer MEDICARE ==
[2018-02-05] VITALS (9 sets, daily range): BP systolic 96–134; BP diastolic 53–95; BMI 36.3
[~2018-02-05] VITALS: Ht 188 cm; Wt 130.3 kg
[~2018-02-05 13:26] MED LIST changes: +TYLENOL W/CODEI1 TAB PO
[2018-02-05 14:46] LABS: BASOPHILS 0.3 % (0-2); EOSINOPHILS 5.1 % (0-7); HEMATOCRIT 27.7 % (42.0-54.0); HEMOGLOBIN 8.6 g/dL (13.5-17.5); LYMPHOCYTES 37.5 % (15-50); MCH 23.8 pg (26.0-34.0); MCV 76.7 fL (80.0-100.0); MONOCYTES 7.6 % (2-11); NEUTROPHILS 49.5 % (40-80); PLATELET COUNT 175 10x3/uL (130-400); RBC 3.61 10x6/uL (4.20-6.10); RDW 15.8 % (11.5-14.5)
[2018-02-05 14:50] LABS: WBC 3.6 10x3/uL (4.8-10.8)
[2018-02-05 14:51] LABS: APTT 30.2 SECONDS (22.8-39.4); INR 1.03 (0.85-1.17); PROTIME 13.1 SECONDS (11.6-15.0)
[2018-02-05 14:53] LABS: D-DIMER-QUANTITATIVE 1.41 ug/mLFEU (0.20-0.54)
[2018-02-05 15:00] LABS: ALBUMIN 2.8 g/dL (3.4-5.0); ALKALINE PHOSPHATASE 115 U/L (46-116); ALT (SGPT) 15 U/L (10-68); BILIRUBIN - TOTAL 0.21 mg/dL (0.2-1.3); CALCIUM 8.9 mg/dL (8.5-10.1); CARBON DIOXIDE 26.5 mmol/L (21.0-32.0); CHLORIDE - SERUM 104 mmol/L (98-107); CREATININE - SERUM 2.2 mg/dL (0.6-1.3); POTASSIUM - SERUM 4.5 mmol/L (3.5-5.1); PROTEIN - SERUM 6.6 g/dL (6.4-8.2); SODIUM 137 mmol/L (136-145); UREA NITROGEN 30 mg/dL (7-18); eGFR NON AFRICAN AMERICAN 34 mL/min (90-120)
[2018-02-05 15:04] LABS: CALC OSMOLALITY 279 mosm/kg (275-300); GLUCOSE 104 mg/dL (74-106)
[2018-02-05 15:11] LABS: CKMB 1.8 U/L (0.0-3.6); CREATINE KINASE 221 UL (21-232)
[2018-02-05 15:12] LABS: TROPONIN-I < 0.017 ng/mL (0.000-0.060)
[2018-02-05 19:51] LABS: CKMB 1.4 U/L (0.0-3.6); CREATINE KINASE 221 UL (21-232)
[2018-02-06] VITALS (17 sets, daily range): BP systolic 115–161; BP diastolic 51–98; Ht 188 cm; Wt 130.3 kg
[2018-02-06 01:52] LABS: CKMB 1.6 U/L (0.0-3.6); CREATINE KINASE 239 UL (21-232); TROPONIN-I < 0.017 ng/mL (0.000-0.060)
[2018-02-06 07:20] LABS: BASOPHILS 0.6 % (0-2); EOSINOPHILS 4.4 % (0-7); HEMATOCRIT 32.8 % (42.0-54.0); HEMOGLOBIN 10.2 g/dL (13.5-17.5); IMMATURE GRANULOCYTES 0.4 % (0-5); LYMPHOCYTES 31.1 % (15-50); MCH 24.5 pg (26.0-34.0); MCHC 31.1 g/dL (31.0-37.0); MONOCYTES 6.9 % (2-11); NEUTROPHILS 56.6 % (40-80); PLATELET COUNT 141 10x3/uL (130-400); RBC 4.17 10x6/uL (4.20-6.10); RDW 16.3 % (11.5-14.5)
[2018-02-06 07:24] LABS: MCV 78.7 fL (80.0-100.0)
[2018-02-06 07:53] LABS: ALBUMIN 2.8 g/dL (3.4-5.0); ALKALINE PHOSPHATASE 120 U/L (46-116); ALT (SGPT) 15 U/L (10-68); BILIRUBIN - TOTAL 0.22 mg/dL (0.2-1.3); CALC OSMOLALITY 286 mosm/kg (275-300); CALCIUM 8.3 mg/dL (8.5-10.1); CARBON DIOXIDE 23.4 mmol/L (21.0-32.0); CHLORIDE - SERUM 106 mmol/L (98-107); CKMB 1.7 U/L (0.0-3.6); CREATINE KINASE 232 UL (21-232); CREATININE - SERUM 2.4 mg/dL (0.6-1.3); POTASSIUM - SERUM 4.8 mmol/L (3.5-5.1); PROTEIN - SERUM 6.7 g/dL (6.4-8.2); SODIUM 138 mmol/L (136-145); TROPONIN-I < 0.017 ng/mL (0.000-0.060); UREA NITROGEN 30 mg/dL (7-18); eGFR NON AFRICAN AMERICAN 31 mL/min (90-120)
[2018-02-06 07:54] LABS: GLUCOSE 194 mg/dL (74-106)
[2018-02-07] VITALS (18 sets, daily range): BP systolic 90–150; BP diastolic 56–102
[2018-02-07 04:02] LABS: BASOPHILS 0.3 % (0-2); EOSINOPHILS 2.8 % (0-7); HEMATOCRIT 31.4 % (42.0-54.0); HEMOGLOBIN 9.7 g/dL (13.5-17.5); IMMATURE GRANULOCYTES 0.2 % (0-5); LYMPHOCYTES 35.2 % (15-50); MCH 24.4 pg (26.0-34.0); MCHC 30.9 g/dL (31.0-37.0); MCV 79.1 fL (80.0-100.0); MEAN PLATELET VOLUME 9.9 fL (7.4-10.4); MONOCYTES 6.5 % (2-11); PLATELET COUNT 157 10x3/uL (130-400); RBC 3.97 10x6/uL (4.20-6.10); RDW 16.1 % (11.5-14.5)
[2018-02-07 04:18] LABS: ALBUMIN 2.7 g/dL (3.4-5.0); ANION GAP 10.2 mmol/L (8-16); BILIRUBIN - TOTAL 0.27 mg/dL (0.2-1.3); CALCIUM 8.1 mg/dL (8.5-10.1); CARBON DIOXIDE 26.6 mmol/L (21.0-32.0); PROTEIN - SERUM 6.2 g/dL (6.4-8.2)
[2018-02-07 04:30] LABS: POTASSIUM - SERUM 3.8 mmol/L (3.5-5.1)
[2018-02-08] VITALS (12 sets, daily range): BP systolic 109–157; BP diastolic 70–97
[2018-02-08 05:17] LABS: BASOPHILS 0.2 % (0-2); EOSINOPHILS 3.2 % (0-7); HEMATOCRIT 30.8 % (42.0-54.0); HEMOGLOBIN 9.5 g/dL (13.5-17.5); IMMATURE GRANULOCYTES 0.2 % (0-5); LYMPHOCYTES 34.4 % (15-50); MCH 24.6 pg (26.0-34.0); MCHC 30.8 g/dL (31.0-37.0); MCV 79.8 fL (80.0-100.0); MEAN PLATELET VOLUME 10.3 fL (7.4-10.4); MONOCYTES 9.2 % (2-11); NEUTROPHILS 52.8 % (40-80); PLATELET COUNT 148 10x3/uL (130-400); RBC 3.86 10x6/uL (4.20-6.10); RDW 16.4 % (11.5-14.5)
[2018-02-08 05:25] LABS: WBC 4.4 10x3/uL (4.8-10.8)
[2018-02-08 05:30] LABS: ANION GAP 11.2 mmol/L (8-16); CALCIUM 8.1 mg/dL (8.5-10.1); CARBON DIOXIDE 27.9 mmol/L (21.0-32.0)
[2018-02-08 05:46] LABS: POTASSIUM - SERUM 5.1 mmol/L (3.5-5.1)
[2018-02-08] MEDS ORDERED: TYLENOL W/CODEI1 TAB PO (13:49)
[2018-02-08] MEDS ORDERED: CARAFATE1 G/10 ML PO (13:49)
== END 2018-02-08 16:57 | disposition home or self-care (01) | DRG 378 ==
LOC: D.ER 13:26 → D.ICU 19:05 → D.EDHOLD 19:05 → D.ICU 19:44
PROVIDERS: Family Medicine; Internal Medicine Gastroenterology
PROC: 0DJ08ZZ Inspection of Upper Intestinal Tract, Via Natural or Artificial Opening Endoscopic (ICD-10-PCS; principal; 2018-02-07 11:00)
DX: K92.2 Gastrointestinal hemorrhage, unspecified (principal); D62 Acute posthemorrhagic anemia; I24.8 Other forms of acute ischemic heart disease; I42.8 Other cardiomyopathies; R07.9 Chest pain, unspecified; N18.9 Chronic kidney disease, unspecified; E11.22 Type 2 diabetes mellitus with diabetic chronic kidney disease; I13.10 Hypertensive heart and chronic kidney disease without heart failure, with stage 1 through stage 4 chronic kidney disease, or unspecified chronic kidney disease; K21.0 Gastro-esophageal reflux disease with esophagitis; K31.819 Angiodysplasia of stomach and duodenum without bleeding; Z95.0 Presence of cardiac pacemaker

== ENCOUNTER 2018-02-13 17:24 | Inpatient (IN) | payer MEDICARE ==
[~2018-02-13] VITALS: Ht 188 cm; Wt 129.1 kg
[~2018-02-13 17:24] MED LIST changes: +CARAFATE1 G/10 ML PO
[2018-02-13 18:08] LABS: BASOPHILS 0.4 % (0-2); EOSINOPHILS 2.1 % (0-7); HEMATOCRIT 33.8 % (42.0-54.0); HEMOGLOBIN 10.9 g/dL (13.5-17.5); IMMATURE GRANULOCYTES 0.2 % (0-5); MCH 24.9 pg (26.0-34.0); MCHC 32.2 g/dL (31.0-37.0); MCV 77.2 fL (80.0-100.0); MEAN PLATELET VOLUME 10.7 fL (7.4-10.4); NEUTROPHILS 60.3 % (40-80); PLATELET COUNT 144 10x3/uL (130-400); RBC 4.38 10x6/uL (4.20-6.10); WBC 5.2 10x3/uL (4.8-10.8)
[2018-02-13 18:15] VITALS: BP 131/88
[2018-02-13 18:23] LABS: ALBUMIN 3.2 g/dL (3.4-5.0); ALKALINE PHOSPHATASE 125 U/L (46-116); ALT (SGPT) 17 U/L (10-68); BILIRUBIN - TOTAL 0.31 mg/dL (0.2-1.3); CALC OSMOLALITY 294 mosm/kg (275-300); CALCIUM 9.5 mg/dL (8.5-10.1); CARBON DIOXIDE 27.6 mmol/L (21.0-32.0); CHLORIDE - SERUM 108 mmol/L (98-107); CREATININE - SERUM 1.9 mg/dL (0.6-1.3); GLUCOSE 218 mg/dL (74-106); POTASSIUM - SERUM 4.2 mmol/L (3.5-5.1); PROTEIN - SERUM 7.5 g/dL (6.4-8.2); SODIUM 142 mmol/L (136-145); UREA NITROGEN 26 mg/dL (7-18); eGFR NON AFRICAN AMERICAN 41 mL/min (90-120)
[2018-02-13 18:32] LABS: APTT 26.1 SECONDS (22.8-39.4); INR 1.04 (0.85-1.17); PROTIME 13.2 SECONDS (11.6-15.0)
[2018-02-13 18:34] LABS: CKMB 1.1 U/L (0.0-3.6); LIPASE 83 U/L (73-393)
[2018-02-13 18:38] LABS: TROPONIN-I < 0.017 ng/mL (0.000-0.060)
[2018-02-13 18:45] VITALS: BP 132/84
[2018-02-13 19:00] VITALS: BP 139/86
[2018-02-13 23:06] LABS: CKMB 1.4 U/L (0.0-3.6); CREATINE KINASE 635 UL (21-232)
[2018-02-13 23:10] LABS: TROPONIN-I < 0.017 ng/mL (0.000-0.060)
[2018-02-14 05:27] VITALS: BP 157/94; BMI 35.0
[2018-02-14 06:04] VITALS: BP 157/94
[2018-02-14 07:01] LABS: BASOPHILS 0.6 % (0-2); EOSINOPHILS 3.5 % (0-7); HEMATOCRIT 33.2 % (42.0-54.0); HEMOGLOBIN 10.5 g/dL (13.5-17.5); LYMPHOCYTES 32.4 % (15-50); MCH 24.7 pg (26.0-34.0); MCHC 31.6 g/dL (31.0-37.0); MCV 78.1 fL (80.0-100.0); MEAN PLATELET VOLUME 10.3 fL (7.4-10.4); MONOCYTES 5.1 % (2-11); NEUTROPHILS 58.4 % (40-80); PLATELET COUNT 134 10x3/uL (130-400); RBC 4.25 10x6/uL (4.20-6.10); RDW 16.2 % (11.5-14.5); WBC 4.9 10x3/uL (4.8-10.8)
[2018-02-14 07:36] LABS: ALBUMIN 2.9 g/dL (3.4-5.0); ALKALINE PHOSPHATASE 115 U/L (46-116); ALT (SGPT) 14 U/L (10-68); BILIRUBIN - TOTAL 0.39 mg/dL (0.2-1.3); CALC OSMOLALITY 285 mosm/kg (275-300); CALCIUM 8.4 mg/dL (8.5-10.1); CARBON DIOXIDE 25.4 mmol/L (21.0-32.0); CHLORIDE - SERUM 106 mmol/L (98-107); CKMB 1.4 U/L (0.0-3.6); CREATINE KINASE 527 UL (21-232); CREATININE - SERUM 1.6 mg/dL (0.6-1.3); GLUCOSE 172 mg/dL (74-106); POTASSIUM - SERUM 3.8 mmol/L (3.5-5.1); PROTEIN - SERUM 6.8 g/dL (6.4-8.2); SODIUM 140 mmol/L (136-145); TROPONIN-I < 0.017 ng/mL (0.000-0.060); UREA NITROGEN 22 mg/dL (7-18); eGFR NON AFRICAN AMERICAN 50 mL/min (90-120)
[2018-02-14 07:53] VITALS: BP 141/93
[2018-02-14 10:22] LABS: CKMB 1.5 U/L (0.0-3.6); CREATINE KINASE 468 UL (21-232)
[2018-02-14 10:31] LABS: TROPONIN-I < 0.017 ng/mL (0.000-0.060)
[2018-02-14 11:00] VITALS: BP 118/49
[2018-02-14 13:08] VITALS: BMI 35.0
[2018-02-14 14:15] VITALS: Ht 188 cm; Wt 129.1 kg
[2018-02-14 16:30] VITALS: BP 142/95
[2018-02-14 20:35] VITALS: BP 119/92
[2018-02-15 00:21] VITALS: BP 90/50
[2018-02-15 05:07] VITALS: BP 110/69
[2018-02-15 06:26] LABS: CALCIUM 8.3 mg/dL (8.5-10.1); CARBON DIOXIDE 24.5 mmol/L (21.0-32.0)
[2018-02-15 06:28] LABS: CREATININE - SERUM 2.2 mg/dL (0.6-1.3); POTASSIUM - SERUM 4.5 mmol/L (3.5-5.1)
[2018-02-15 07:33] LABS: BASOPHILS 0.2 % (0-2); EOSINOPHILS 2.4 % (0-7); HEMATOCRIT 32.1 % (42.0-54.0); HEMOGLOBIN 10.1 g/dL (13.5-17.5); LYMPHOCYTES 24.1 % (15-50); MCH 24.6 pg (26.0-34.0); MCHC 31.5 g/dL (31.0-37.0); MCV 78.3 fL (80.0-100.0); MEAN PLATELET VOLUME 10.6 fL (7.4-10.4); MONOCYTES 5.2 % (2-11); NEUTROPHILS 68.1 % (40-80); PLATELET COUNT 137 10x3/uL (130-400); RDW 16.1 % (11.5-14.5); WBC 5.4 10x3/uL (4.8-10.8)
[2018-02-15 08:45] VITALS: BP 117/71
[2018-02-15 12:10] VITALS: BP 139/81
[2018-02-15 15:54] VITALS: BP 142/77
[2018-02-15 21:43] VITALS: BP 110/69
[2018-02-16 03:03] VITALS: BP 84/55
[2018-02-16 06:01] VITALS: BP 119/70
[2018-02-16 08:13] VITALS: BP 123/69
[2018-02-16 10:21] LABS: BASOPHILS 0.2 % (0-2); EOSINOPHILS 3.4 % (0-7); HEMATOCRIT 30.8 % (42.0-54.0); HEMOGLOBIN 9.6 g/dL (13.5-17.5); IMMATURE GRANULOCYTES 0.2 % (0-5); LYMPHOCYTES 28.7 % (15-50); MCH 24.2 pg (26.0-34.0); MCHC 31.2 g/dL (31.0-37.0); MCV 77.8 fL (80.0-100.0); MEAN PLATELET VOLUME 10.5 fL (7.4-10.4); MONOCYTES 8.4 % (2-11); NEUTROPHILS 59.1 % (40-80); PLATELET COUNT 123 10x3/uL (130-400); RBC 3.96 10x6/uL (4.20-6.10); WBC 4.1 10x3/uL (4.8-10.8)
[2018-02-16 10:42] LABS: ANION GAP 12.4 mmol/L (8-16); CALCIUM 7.7 mg/dL (8.5-10.1); CARBON DIOXIDE 25.2 mmol/L (21.0-32.0); CREATININE - SERUM 1.9 mg/dL (0.6-1.3)
[2018-02-16 10:43] LABS: POTASSIUM - SERUM 3.6 mmol/L (3.5-5.1)
[2018-02-16 11:53] VITALS: BP 113/83
[2018-02-16 15:37] VITALS: BP 114/71
[2018-02-16 20:30] VITALS: BP 122/82
[2018-02-17 00:30] VITALS: BP 151/98
[2018-02-17 04:30] VITALS: BP 149/78
[2018-02-17 05:33] LABS: BASOPHILS 0.7 % (0-2); EOSINOPHILS 3.4 % (0-7); HEMATOCRIT 31.4 % (42.0-54.0); HEMOGLOBIN 9.9 g/dL (13.5-17.5); IMMATURE GRANULOCYTES 0.2 % (0-5); LYMPHOCYTES 32.8 % (15-50); MCH 24.6 pg (26.0-34.0); MCHC 31.5 g/dL (31.0-37.0); MCV 77.9 fL (80.0-100.0); MEAN PLATELET VOLUME 10.6 fL (7.4-10.4); MONOCYTES 8.3 % (2-11); NEUTROPHILS 54.6 % (40-80); PLATELET COUNT 122 10x3/uL (130-400); RBC 4.03 10x6/uL (4.20-6.10); RDW 16.3 % (11.5-14.5); WBC 4.4 10x3/uL (4.8-10.8)
[2018-02-17 05:57] LABS: ANION GAP 10.8 mmol/L (8-16); CALCIUM 8.2 mg/dL (8.5-10.1); CARBON DIOXIDE 28.3 mmol/L (21.0-32.0); CREATININE - SERUM 1.7 mg/dL (0.6-1.3); POTASSIUM - SERUM 4.1 mmol/L (3.5-5.1)
[2018-02-17 09:13] VITALS: BP 154/99
[2018-02-17 15:42] VITALS: BP 139/78
[2018-02-17 18:27] VITALS: BP 130/60
== END 2018-02-17 19:28 | disposition left against medical advice (07) | DRG 377 ==
LOC: D.ER 17:24 → D.EDHOLD 21:38 → D.M2 21:38
PROVIDERS: Family Medicine; Internal Medicine Gastroenterology; Internal Medicine Nephrology
PROC: 0DJD8ZZ Inspection of Lower Intestinal Tract, Via Natural or Artificial Opening Endoscopic (ICD-10-PCS; principal; 2018-02-17 10:58)
DX: K92.2 Gastrointestinal hemorrhage, unspecified (principal); I50.23 Acute on chronic systolic (congestive) heart failure; D62 Acute posthemorrhagic anemia; D61.818 Other pancytopenia; I13.0 Hypertensive heart and chronic kidney disease with heart failure and stage 1 through stage 4 chronic kidney disease, or unspecified chronic kidney disease; D50.9 Iron deficiency anemia, unspecified; E11.22 Type 2 diabetes mellitus with diabetic chronic kidney disease; N18.9 Chronic kidney disease, unspecified; Z95.0 Presence of cardiac pacemaker; J44.9 Chronic obstructive pulmonary disease, unspecified; I08.1 Rheumatic disorders of both mitral and tricuspid valves

== ENCOUNTER 2018-03-15 18:19 | Emergency (ER) | payer MEDICARE ==
[~2018-03-15] VITALS: Ht 188 cm; Wt 123.2 kg
[2018-03-15 18:27] VITALS: Ht 188 cm; Wt 123.2 kg
[2018-03-15 18:43] LABS: BASOPHILS 0.2 % (0-2); EOSINOPHILS 2.3 % (0-7); HEMATOCRIT 32.3 % (42.0-54.0); HEMOGLOBIN 10.5 g/dL (13.5-17.5); IMMATURE GRANULOCYTES 0.2 % (0-5); LYMPHOCYTES 32.2 % (15-50); MCH 26.1 pg (26.0-34.0); MCHC 32.5 g/dL (31.0-37.0); MCV 80.3 fL (80.0-100.0); MEAN PLATELET VOLUME 10.4 fL (7.4-10.4); MONOCYTES 4.8 % (2-11); NEUTROPHILS 60.3 % (40-80); PLATELET COUNT 141 10x3/uL (130-400); RBC 4.02 10x6/uL (4.20-6.10); RDW 17.7 % (11.5-14.5); WBC 5.3 10x3/uL (4.8-10.8)
[2018-03-15 19:04] LABS: ALBUMIN 3.1 g/dL (3.4-5.0); ALKALINE PHOSPHATASE 147 U/L (46-116); ALT (SGPT) 16 U/L (10-68); BILIRUBIN - TOTAL 0.28 mg/dL (0.2-1.3); CALC OSMOLALITY 291 mosm/kg (275-300); CALCIUM 8.8 mg/dL (8.5-10.1); CHLORIDE - SERUM 106 mmol/L (98-107); CREATININE - SERUM 1.8 mg/dL (0.6-1.3); POTASSIUM - SERUM 4.4 mmol/L (3.5-5.1); PROTEIN - SERUM 7.1 g/dL (6.4-8.2); SODIUM 142 mmol/L (136-145); UREA NITROGEN 22 mg/dL (7-18); eGFR NON AFRICAN AMERICAN 43 mL/min (90-120)
[2018-03-15 19:17] LABS: GLUCOSE 208 mg/dL (74-106)
[2018-03-15 19:28] LABS: CKMB 1.7 U/L (0.0-3.6); CREATINE KINASE 349 UL (21-232)
[2018-03-15 19:29] LABS: TROPONIN-I < 0.017 ng/mL (0.000-0.060)
[2018-03-15] MEDS ORDERED: NORCO 7.5/325 T1 TA1 PO (20:40)
[2018-03-16 02:01] VITALS: BP 164/84
== END 2018-03-16 01:30 | disposition home or self-care (01) ==
LOC: D.ER 18:19
PROVIDERS: Family Medicine
DX: R07.9 Chest pain, unspecified (principal); E11.9 Type 2 diabetes mellitus without complications; I10 Essential (primary) hypertension; I50.9 Heart failure, unspecified; Z95.0 Presence of cardiac pacemaker

== ENCOUNTER 2018-04-03 10:01 | Emergency (ER) | payer MEDICARE ==
[~2018-04-03] VITALS: Ht 188 cm; Wt 123.2 kg
[~2018-04-03 10:01] MED LIST changes: +NORCO 7.5/325 T1 TA1 PO
[2018-04-03 10:07] VITALS: Ht 188 cm; Wt 123.2 kg
[2018-04-03 10:33] LABS: BASOPHILS 0.2 % (0-2); HEMATOCRIT 34.1 % (42.0-54.0); IMMATURE GRANULOCYTES 0.2 % (0-5); LYMPHOCYTES 22.4 % (15-50); MCH 26.3 pg (26.0-34.0); MCHC 32.3 g/dL (31.0-37.0); MCV 81.4 fL (80.0-100.0); MEAN PLATELET VOLUME 10.8 fL (7.4-10.4); NEUTROPHILS 69.2 % (40-80); PLATELET COUNT 131 10x3/uL (130-400); RBC 4.19 10x6/uL (4.20-6.10); RDW 16.8 % (11.5-14.5)
[2018-04-03 11:02] LABS: ALBUMIN 2.8 g/dL (3.4-5.0); ALKALINE PHOSPHATASE 145 U/L (46-116); ALT (SGPT) 9 U/L (10-68); BILIRUBIN - TOTAL 0.18 mg/dL (0.2-1.3); CALC OSMOLALITY 294 mosm/kg (275-300); CALCIUM 8.5 mg/dL (8.5-10.1); CARBON DIOXIDE 29.9 mmol/L (21.0-32.0); CHLORIDE - SERUM 104 mmol/L (98-107); CREATININE - SERUM 1.9 mg/dL (0.6-1.3); GLUCOSE 338 mg/dL (74-106); PROTEIN - SERUM 6.8 g/dL (6.4-8.2); SODIUM 138 mmol/L (136-145); UREA NITROGEN 29 mg/dL (7-18); eGFR NON AFRICAN AMERICAN 41 mL/min (90-120)
[2018-04-03 11:14] LABS: CKMB 1.4 U/L (0.0-3.6); CREATINE KINASE 85 UL (21-232); PRO BNP 1082 pg/mL (0-125); TROPONIN-I < 0.017 ng/mL (0.000-0.060)
[2018-04-03 12:54] VITALS: BP 150/81
== END 2018-04-03 12:58 | disposition home or self-care (01) ==
LOC: D.ER 10:01
PROVIDERS: Family Medicine
DX: R07.9 Chest pain, unspecified (principal); K29.70 Gastritis, unspecified, without bleeding; E11.9 Type 2 diabetes mellitus without complications; I12.9 Hypertensive chronic kidney disease with stage 1 through stage 4 chronic kidney disease, or unspecified chronic kidney disease; N18.1 Chronic kidney disease, stage 1; Z95.0 Presence of cardiac pacemaker; J44.9 Chronic obstructive pulmonary disease, unspecified

== ENCOUNTER 2018-11-26 14:09 | Emergency (ER) | payer MEDICARE ==
[~2018-11-26] VITALS: Ht 188 cm; Wt 123.2 kg
[2018-11-26 14:45] LABS: BASOPHILS 0.4 % (0-2); EOSINOPHILS 1.7 % (0-7); HEMATOCRIT 28.3 % (42.0-54.0); HEMOGLOBIN 9.1 g/dL (13.5-17.5); IMMATURE GRANULOCYTES 0.2 % (0-5); LYMPHOCYTES 30.1 % (15-50); MCH 25.2 pg (26.0-34.0); MCHC 32.2 g/dL (31.0-37.0); MCV 78.4 fL (80.0-100.0); MEAN PLATELET VOLUME 10.6 fL (7.4-10.4); MONOCYTES 6.8 % (2-11); NEUTROPHILS 60.8 % (40-80); RBC 3.61 10x6/uL (4.20-6.10); RDW 14.5 % (11.5-14.5); WBC 4.7 10x3/uL (4.8-10.8)
[2018-11-26 14:56] LABS: APTT 25.9 SECONDS (22.8-39.4); INR 0.97 (0.85-1.17); PROTIME 12.4 SECONDS (11.6-15.0)
[2018-11-26 14:57] LABS: PLATELET COUNT 162 10x3/uL (130-400)
[2018-11-26 15:06] LABS: ALBUMIN 2.9 g/dL (3.4-5.0); ALKALINE PHOSPHATASE 136 U/L (46-116); ALT (SGPT) 17 U/L (10-68); BILIRUBIN - TOTAL 0.15 mg/dL (0.2-1.3); CALC OSMOLALITY 292 mosm/kg (275-300); CALCIUM 8.5 mg/dL (8.5-10.1); CHLORIDE - SERUM 106 mmol/L (98-107); PROTEIN - SERUM 6.9 g/dL (6.4-8.2); SODIUM 140 mmol/L (136-145); UREA NITROGEN 27 mg/dL (7-18); eGFR NON AFRICAN AMERICAN 38 mL/min (90-120)
[2018-11-26 15:09] LABS: GLUCOSE 269 mg/dL (74-106)
[2018-11-26 15:12] LABS: CKMB 0.8 U/L (0.0-3.6); CREATINE KINASE 117 UL (21-232); TROPONIN-I < 0.017 ng/mL (0.000-0.060)
[2018-11-26 17:00] VITALS: Ht 188 cm; Wt 123.2 kg
[2018-11-26 19:18] LABS: % SATURATION 7 % (15-55); IRON 19 ug/dl (35-150); TOTAL IRON BIND CAPACITY 266 ug/dl (260-445); UNSAT IRON BIND CAPACITY 247 ug/dl (150-375)
[2018-11-26 21:15] VITALS: BP 154/95
== END 2018-11-26 21:16 | disposition home or self-care (01) ==
LOC: D.ER 14:09
PROVIDERS: Emergency Medicine
DX: R07.9 Chest pain, unspecified (principal); I11.0 Hypertensive heart disease with heart failure; I50.9 Heart failure, unspecified; E11.65 Type 2 diabetes mellitus with hyperglycemia; N18.9 Chronic kidney disease, unspecified; D64.9 Anemia, unspecified

== ENCOUNTER 2018-12-23 21:05 | Inpatient (IN) | payer MEDICARE ==
[~2018-12-23] VITALS: Ht 188 cm; Wt 75.7 kg
[2018-12-23 21:29] VITALS: BP 157/88
[2018-12-23 21:55] LABS: APTT 25.1 SECONDS (22.8-39.4); INR 1.02 (0.85-1.17); PROTIME 12.9 SECONDS (11.6-15.0)
[2018-12-23 21:56] LABS: BASOPHILS 0.4 % (0-2); HEMATOCRIT 30.1 % (42.0-54.0); HEMOGLOBIN 9.5 g/dL (13.5-17.5); IMMATURE GRANULOCYTES 0.2 % (0-5); LYMPHOCYTES 26.7 % (15-50); MCH 24.5 pg (26.0-34.0); MCHC 31.6 g/dL (31.0-37.0); MCV 77.8 fL (80.0-100.0); MEAN PLATELET VOLUME 10.6 fL (7.4-10.4); MONOCYTES 5.5 % (2-11); NEUTROPHILS 65.2 % (40-80); PLATELET COUNT 189 10x3/uL (130-400); RBC 3.87 10x6/uL (4.20-6.10); WBC 5.5 10x3/uL (4.8-10.8)
[2018-12-23 21:57] LABS: D-DIMER-QUANTITATIVE 1.96 ug/mLFEU (0.20-0.54)
[2018-12-23 22:11] LABS: ALBUMIN 3.1 g/dL (3.4-5.0); ALKALINE PHOSPHATASE 138 U/L (46-116); ALT (SGPT) 18 U/L (10-68); BILIRUBIN - TOTAL 0.15 mg/dL (0.2-1.3); CALCIUM 9.2 mg/dL (8.5-10.1); CARBON DIOXIDE 24.1 mmol/L (21.0-32.0); CHLORIDE - SERUM 103 mmol/L (98-107); CKMB 1.2 U/L (0.0-3.6); CREATINE KINASE 145 UL (21-232); CREATININE - SERUM 2.2 mg/dL (0.6-1.3); MAGNESIUM - SERUM 1.8 mg/dL (1.8-2.4); PROTEIN - SERUM 7.3 g/dL (6.4-8.2); SODIUM 136 mmol/L (136-145); UREA NITROGEN 28 mg/dL (7-18); eGFR NON AFRICAN AMERICAN 34 mL/min (90-120)
[2018-12-23 22:12] LABS: CALC OSMOLALITY 293 mosm/kg (275-300); GLUCOSE 393 mg/dL (74-106); TROPONIN-I < 0.017 ng/mL (0.000-0.060)
[2018-12-24] VITALS (8 sets, daily range): BP systolic 132–164; BP diastolic 80–104; Ht 188 cm; Wt 75.7 kg
--- NOTE | 2018-12-24 00:37 | NUR ---
PT ARRIVED TO ROOM 2121 PT IS AAO, MEDREC AND HISTORY COMPLETE. PT S1S2 NOTED. RRR. PACEMAKER NOTED. LUNGS CLEAR. LOWER LOBES DIMINISHED. PT DENIES COUGH. PT ABDOMEN WNL. NO TENDERNESS BOWEL SOUNDS ACTIVE. UP AD EMY WITH STEADY GAIT. PT COMPLAINS OF CHEST PAIN THAT GOES TO LEFT ARM AND DOWN LEFT SIDE. MORPHINE GIVEN WITH ZOFRAN TO RIGHT HAND 20G. PT DENIES ANY OTHER NEEDS. WILL CPOC
--- NOTE | 2018-12-24 02:44 | NUR ---
PT RESTING IN BED, DENIES ANY NEEDS. VERBALIZED UNDERSTANDING NPO UNTIL SEEN BY CARDIO. PT ASKS ABOUT NEXT AVALIBLE MORPHINE. TOLD PT NOT UNTIL 0430 PT VERBALIZED UNDERSTANDING. PT WILL CALL FOR ASSIST WHEN NEEDED. WILL CPOC
--- NOTE | 2018-12-24 04:41 | NUR ---
PT COMPLAINS OF PAIN. MORPHINE AND ZOFRAN GIVEN ORDERED. PT HAS NO S/S OF DISTRESS. DENIES ANY OTHER NEEDS. WILL CPOC
[2018-12-24 06:23] LABS: BASOPHILS 0.6 % (0-2); EOSINOPHILS 2.9 % (0-7); HEMATOCRIT 28.2 % (42.0-54.0); IMMATURE GRANULOCYTES 0.2 % (0-5); MCH 24.7 pg (26.0-34.0); MCHC 31.9 g/dL (31.0-37.0); MCV 77.3 fL (80.0-100.0); MEAN PLATELET VOLUME 10.9 fL (7.4-10.4); MONOCYTES 6.8 % (2-11); NEUTROPHILS 50.5 % (40-80); PLATELET COUNT 192 10x3/uL (130-400); RBC 3.65 10x6/uL (4.20-6.10); WBC 5.1 10x3/uL (4.8-10.8)
[2018-12-24 06:53] LABS: CALC OSMOLALITY 285 mosm/kg (275-300); CARBON DIOXIDE 24.8 mmol/L (21.0-32.0); CHLORIDE - SERUM 104 mmol/L (98-107); CREATINE KINASE 117 UL (21-232); CREATININE - SERUM 1.8 mg/dL (0.6-1.3); POTASSIUM - SERUM 4.4 mmol/L (3.5-5.1); SODIUM 136 mmol/L (136-145); TROPONIN-I 0.023 ng/mL (0.000-0.060); UREA NITROGEN 28 mg/dL (7-18); eGFR NON AFRICAN AMERICAN 43 mL/min (90-120)
[2018-12-24 06:55] LABS: GLUCOSE 248 mg/dL (74-106)
--- NOTE | 2018-12-24 07:30 | NUR ---
REPORT RECEIVED. WILL CONTINUE WITH POC. PT CURRENTLY LYING SEMI FOWLERS. CALL LIGHT W/I REACH. PT IS AAO AND UP AD EMY. RR EVEN AND UNLABORED ON 2L 02. R.HAND PIV IS SALINE LOCKED. NO S/S OF DISTRESS NOTED. PT DENIES ANY NEEDS AT THIS TIME. WILL CTM.
--- NOTE | 2018-12-24 13:27 | NUR ---
I have reviewed this patient and I concur with the Shift Assessment completed by the Licensed Practical Nurse today this shift.
--- NOTE | 2018-12-24 19:37 | NUR ---
ASSESSMENT COMPLETE, PT A&O. RESPERATIONS EVEN ON RA. IV TO RIGHT HAND SL, IV SITE CLEAN AND DRY. PT CURRENTLY DENIES PAIN OR NEEDS, BED LOW, CL IN REACH.
--- NOTE | 2018-12-24 20:34 | NUR ---
HS MEDS GIVEN WITH FRESH ICE WATER. MORPHINE 4 MG GIVEN AT PT REQUEST FOR C/O PAIN.
--- NOTE | 2018-12-25 01:08 | NUR ---
CL ANSWERED, PT C/O PAIN TO LEFT SIDE, RATES PAIN AT AN 8 ON PAIN SCALE. MORPHINE 4 MG GIVEN TO PIV IN RIGHT HAND.
--- NOTE | 2018-12-25 02:08 | NUR ---
I have reviewed this patient and I concur with the Shift Assessment completed by the Licensed Practical Nurse today this shift.
--- NOTE | 2018-12-25 03:09 | NUR ---
RESTING WITH EYES CLOSED, RESPERATIONS EVEN, NO S/S DISTRESS NOTED.
[2018-12-25 05:20] VITALS: BP 109/68
[2018-12-25 06:25] LABS: BASOPHILS 0.4 % (0-2); EOSINOPHILS 3.8 % (0-7); HEMATOCRIT 29.5 % (42.0-54.0); HEMOGLOBIN 9.5 g/dL (13.5-17.5); IMMATURE GRANULOCYTES 0.2 % (0-5); LYMPHOCYTES 33.8 % (15-50); MCH 24.9 pg (26.0-34.0); MCHC 32.2 g/dL (31.0-37.0); MCV 77.4 fL (80.0-100.0); MEAN PLATELET VOLUME 10.5 fL (7.4-10.4); MONOCYTES 6.7 % (2-11); NEUTROPHILS 55.1 % (40-80); PLATELET COUNT 174 10x3/uL (130-400); RBC 3.81 10x6/uL (4.20-6.10); RDW 14.9 % (11.5-14.5); WBC 4.8 10x3/uL (4.8-10.8)
[2018-12-25 06:36] LABS: ANION GAP 14.2 mmol/L (8-16); CALCIUM 8.7 mg/dL (8.5-10.1); CARBON DIOXIDE 26.6 mmol/L (21.0-32.0); CREATININE - SERUM 2.2 mg/dL (0.6-1.3); MAGNESIUM - SERUM 1.9 mg/dL (1.8-2.4); POTASSIUM - SERUM 4.8 mmol/L (3.5-5.1)
[2018-12-25 08:00] VITALS: BP 138/87
--- NOTE | 2018-12-25 12:12 | NUR ---
Nutrition follow-up: Diet advanced to low sodium with po intake 100% of meals Labs reviewed; Glucose elevated wt: 268# Will change diet order to consistent CHO due to elevated glucose. RDN following.
[2018-12-25 12:38] VITALS: BP 131/71
--- NOTE | 2018-12-25 14:40 | NUR ---
I have reviewed this patient and I concur with the Shift Assessment completed by the Licensed Practical Nurse today this shift.
[2018-12-25 16:30] VITALS: BP 112/64
--- NOTE | 2018-12-25 17:27 | NUR ---
WITHOUT CHANGES OR DISTRESS NOTED AT THIS TIME . DENIES NEEDS.
[2018-12-25 20:00] VITALS: BP 121/80
[2018-12-26] VITALS: BP 125/73
[2018-12-26 04:00] VITALS: BP 107/60
--- NOTE | 2018-12-26 07:30 | NUR ---
ASSESSMENT DONE. DENIES NEEDS.
[2018-12-26 07:36] VITALS: BP 100/52
[2018-12-26 08:42] LABS: HEMATOCRIT 27.9 % (42.0-54.0); HEMOGLOBIN 8.9 g/dL (13.5-17.5); MCH 24.6 pg (26.0-34.0); MCHC 31.9 g/dL (31.0-37.0); MCV 77.1 fL (80.0-100.0); MEAN PLATELET VOLUME 10.8 fL (7.4-10.4); PLATELET COUNT 174 10x3/uL (130-400); RBC 3.62 10x6/uL (4.20-6.10); RDW 14.9 % (11.5-14.5); WBC 4.9 10x3/uL (4.8-10.8)
[2018-12-26 08:52] LABS: ANION GAP 12.6 mmol/L (8-16); CALCIUM 8.6 mg/dL (8.5-10.1); CARBON DIOXIDE 26.8 mmol/L (21.0-32.0); CREATININE - SERUM 3.1 mg/dL (0.6-1.3); MAGNESIUM - SERUM 1.8 mg/dL (1.8-2.4); POTASSIUM - SERUM 4.4 mmol/L (3.5-5.1)
--- NOTE | 2018-12-26 09:34 | NUR ---
TO GI LAB PER BED
--- NOTE | 2018-12-26 09:44 | NUR ---
I have reviewed this patient and I concur with the Shift Assessment completed by the Licensed Practical Nurse today this shift.
[2018-12-26 10:34] LABS: BASOPHILS 1 % (0-2); LYMPHOCYTES 49 % (15-50); MONOCYTES 5 % (2-11); NEUTROPHILS 45 % (40-80); PLATELET ESTIMATE NORMAL
--- NOTE | 2018-12-26 12:00 | NUR ---
PT CALLED THIS NURSE TO HIS ROOM, AND SAID THAT HE JUST HAD AN EMERGENCY CALL FROM HIS AN HAD TO LEAVE, PT SIGNED A AMA,
--- NOTE | 2018-12-29 09:15 | MORECARE ---
CASE MANAGEMENT DISCHARGE SUMMARY PATIENT: ALEXANDER ASHTON UNIT: [id number] ADM DATE: 12/24/18 AGE: 48 : 74 SEX: M ROOM/BED: D.2122 AUTHOR: GRECIA FARFAN PHYSICIAN: REFERRING PHYSICIAN: KUSUM SHEPARD MD DATE OF SERVICE: 12/29/18 Discharge Plan Patient Name: ALEXANDER ASHTON [facility] [facility] 1970 Planned Disposition: Left Against Medical Advice Anticipated Discharge Date: 12/26/18 Discharge Date: 12/26/2018 Expected LOS: 2 Initial Reviewer: [email or web address] Initial Review Date: 12/29/2018 Generated: 12/29/18 10:14 am Patient Name: ALEXANDER ASHTON Page [phone] at 0915 All edits/amendments must be made on the electronic document DICTATION DATE: 12/29/18913 CORROSION CONTROL FITTER: PARKER 12/29/18913 RPT#: [id number] DC DATE:12/26/18 STATUS: DIS IN [facility] [address] [place] [address] END OF REPORT
--- NOTE | 2018-12-29 16:53 | OP ---
PATIENT NAME: ALEXANDER ASHTON MEDICAL RECORD: [id number] :74 LOCATION:D.M2 D.2122 ADMISSION DATE:12/24/18 SURGEON: GRAY FUNK MD DATE OF OPERATION: 12/26/2018 PREOPERATIVE DIAGNOSES: 1. 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 2. Recurrent anemia. POSTOPERATIVE DIAGNOSES: 1. 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 2. Recurrent anemia. 3. Minimal regrowth of gastric antral vascular ectasias and few ectasias in the duodenal bulb as well. These do not account for the patient's anemia and do not appear to have bled recently. PROCEDURES: 1. Esophagogastroduodenoscopy with antral biopsies. 2. Ablation of 18 gastric antral vascular ectasias with the argon plasma unemployment specialist utilizing the esophageal setting in the forced mode. SURGEON: Gray Funk MD STRIP CUTTING MACHINE OPERATOR: None. BLOOD LOSS: Minimal. ANESTHESIA: IV sedation. COMPLICATIONS: None. The risks, possible complications, and alternatives to the procedure were explained to the patient. He elects to proceed. OPERATIVE COURSE: The patient was conveyed to endoscopy suite electively on 12/26/2018. IV sedation was induced by the anesthesia staff. A bite block was inserted. A gastroscope was inserted into the mouth. It was advanced easily into the hypopharynx. The esophagus was easily intubated as were the stomach and duodenum. Upon withdrawal, retroflexed and angulus views were obtained. Antral biopsies were obtained. Noted some antral vascular ectasia in the stomach as well as a few in the duodenal bulb. These were ablated utilizing the argon plasma unemployment specialist with the esophageal setting in the forced mode. I noted no evidence of bleeding from any of these ectasias. The biopsy sites were made hemostatic with the argon plasma unemployment specialist as well. The gastroscope was then withdrawn under direct vision. The number and size of these ectasias does not account for any significant amount of blood loss and does not account for the patient's anemia. TRANSINT:[id number] Voice Confirmation ID: [id number] DOCUMENT ID: [id number] OPERATIVE REPORT [id number] ALEXANDER ASHTON GRAY FUNK MD at 6963 CC: TOLU SHEPARD and GENET MIGUEL [id number] DICTATION DATE: 12/26/18 1448 LABOR RELATIONS CONSULTANT: 12/26/18 2233 DIS IN 12/26/18 [facility] [address] [facility]
== END 2018-12-26 12:11 | disposition left against medical advice (07) | DRG 378 ==
LOC: D.ER 21:05 → D.EDHOLD 23:10 → OBSVTIME 23:10 → D.M2 23:10
PROVIDERS: Family Medicine; Surgery; ADMIT Emergency Medicine; ATTEND Emergency Medicine
PROC: 0D568ZZ Destruction of Stomach, Via Natural or Artificial Opening Endoscopic (ICD-10-PCS; 2018-12-26)
PROC: 0DB68ZX Excision of Stomach, Via Natural or Artificial Opening Endoscopic, Diagnostic (ICD-10-PCS; principal; 2018-12-26 10:05)
DX: K92.2 Gastrointestinal hemorrhage, unspecified (principal); I50.22 Chronic systolic (congestive) heart failure; I42.9 Cardiomyopathy, unspecified; I13.0 Hypertensive heart and chronic kidney disease with heart failure and stage 1 through stage 4 chronic kidney disease, or unspecified chronic kidney disease; K31.819 Angiodysplasia of stomach and duodenum without bleeding; Z95.0 Presence of cardiac pacemaker; J44.9 Chronic obstructive pulmonary disease, unspecified; D50.9 Iron deficiency anemia, unspecified; E11.22 Type 2 diabetes mellitus with diabetic chronic kidney disease; N18.9 Chronic kidney disease, unspecified; I48.91 Unspecified atrial fibrillation

== ENCOUNTER 2019-02-07 03:40 | Outpatient (CLI) | payer MEDICARE ==
[2019-02-07 03:57] VITALS: BP 162/92
[2019-02-07 04:01] LABS: BASOPHILS 0.2 % (0-2); EOSINOPHILS 2.3 % (0-7); HEMATOCRIT 31.7 % (42.0-54.0); IMMATURE GRANULOCYTES 0.2 % (0-5); LYMPHOCYTES 35.9 % (15-50); MCH 24.4 pg (26.0-34.0); MCHC 31.5 g/dL (31.0-37.0); MCV 77.3 fL (80.0-100.0); MEAN PLATELET VOLUME 10.7 fL (7.4-10.4); MONOCYTES 7.3 % (2-11); NEUTROPHILS 54.1 % (40-80); PLATELET COUNT 168 10x3/uL (130-400); RDW 15.8 % (11.5-14.5); WBC 4.8 10x3/uL (4.8-10.8)
[2019-02-07 04:12] LABS: APTT 24.9 SECONDS (22.8-39.4); INR 1.07 (0.85-1.17); PROTIME 13.4 SECONDS (11.6-15.0)
[2019-02-07 04:16] LABS: ALBUMIN 3.6 g/dL (3.4-5.0); ALKALINE PHOSPHATASE 150 U/L (46-116); ALT (SGPT) 17 U/L (10-68); BILIRUBIN - TOTAL 0.37 mg/dL (0.2-1.3); CALC OSMOLALITY 292 mosm/kg (275-300); CALCIUM 9.1 mg/dL (8.5-10.1); CARBON DIOXIDE 27.2 mmol/L (21.0-32.0); CHLORIDE - SERUM 103 mmol/L (98-107); CREATININE - SERUM 2.1 mg/dL (0.6-1.3); PROTEIN - SERUM 7.7 g/dL (6.4-8.2); SODIUM 139 mmol/L (136-145); UREA NITROGEN 21 mg/dL (7-18); eGFR NON AFRICAN AMERICAN 36 mL/min (90-120)
[2019-02-07 04:23] LABS: GLUCOSE 321 mg/dL (74-106)
[2019-02-07 04:37] LABS: CKMB 0.9 U/L (0.0-3.6); CREATINE KINASE 256 UL (21-232); TROPONIN-I < 0.017 ng/mL (0.000-0.060)
[2019-02-07 06:28] VITALS: BP 164/105; BMI 27.1
--- NOTE | 2019-02-07 07:45 | NUR ---
AM ROUNDS- PT IN BED, TICKET SELLER AT BEDSIDE GETTING TAKING VITAL SIGNS. PT A/O X4, RESP EVEN AND NONLABORED ON RA. LT AC IV SL. MONITOR SHOWING SR WITH RATE OF 92. PACEMAKER WITH DEFRIBILATOR TO LT CHEST. RATIONAL FOR SCDS EXPLAINED TO PT, PT REFUSED TO WEAR SCDS AT THIS TIME. DENIES ANY NEEDS, CALL LIGHT IN REACH, BEDSIDE RAILS X2, NAD NOTED, WILL CONTINUE TO MONITOR.
[2019-02-07 08:13] VITALS: BP 150/94
--- NOTE | 2019-02-07 08:29 | NUR ---
ASPIRIN GIVEN WITH A SIP OF WATER, PT ALSO C/O CHEST PAIN WITH PAIN LEVEL OF 7/10, GAVE 2 DOSE OF NITRO AT THIS TIME. PT ON THE PHONE, DENIES ANY OTHER NEEDS AT THIS TIME. CALL LIGHT IN REACH, NAD NOTED,W ILL CONTINUE TO MONITOR.
[2019-02-07 13:18] VITALS: BP 109/64
--- NOTE | 2019-02-07 15:28 | NUR ---
PROVIDED VERBAL AND WRITTEN DISCHARGE TEACHING TO PT, WHO VEBALIZED UNDERSTANDING REGARDING TEACHING. D/C LT AC IV WITH CATHETER TIP INTACT, PT WILL NOTIFY NURSE WHEN READY FOR WHEELCHAIR.
--- NOTE | 2019-02-07 15:37 | NUR ---
WHEELED PT TO ER, WITH ALL BELONGINGS, NAD NOTED.
--- NOTE | 2019-02-09 08:17 | MORECARE ---
CASE MANAGEMENT DISCHARGE SUMMARY PATIENT: ALEXANDER ASHTON UNIT: [id number] ADM DATE: 02/07/19 AGE: 48 : 74 SEX: M ROOM/BED: D.2110 AUTHOR: GRECIA FARFAN PHYSICIAN: REFERRING PHYSICIAN: CRUZ SHERIDAN MD DATE OF SERVICE: 02/09/19 Discharge Plan Patient Name: ALEXANDER ASHTON [facility] [facility] 1970 Planned Disposition: Home Anticipated Discharge Date: 02/07/19 Discharge Date: 02/07/2019 Expected LOS: 1 Initial Reviewer: [email or web address] Initial Review Date: 02/09/2019 Generated: 02/09/19 9:17 am Patient Name: ALEXANDER ASHTON Page 10114 at 0817 All edits/amendments must be made on the electronic document DICTATION DATE: 02/09/19815 PUNCHBOARD INSERTER: PARKER 02/09/19815 RPT#: [id number] DC DATE:02/07/19 STATUS: DIS IN [facility] [address] [facility] [place] [address] END OF REPORT
--- NOTE | 2019-02-09 09:50 | EC ---
PATIENT:ALEXANDER ASHTON DATE OF SERVICE: 02/07/19 SEX: M MEDICAL RECORD: [id number] DATE OF : 74 LOCATION:D.M2 D.211 AGE OF PATIENT: 48 ADMISSION DATE: 02/07/19 REFERRING PHYSICIAN: INTERPRETING PHYSICIAN: CRUZ PIERSON MD ECHOCARDIOGRAM REPORT ECHO CHARGES 4 ECHO COMPLETE Date: 02/07/19 CLINICAL DIAGNOSIS: DILATED CARDIOMYOPATHY ECHOCARDIOGRAPHIC MEASUREMENTS (adult normal given) AC root (d.<3.7cm) 0 cm LV Septum d (<1.2 cm> 0 cm Valve Excursion 0 cm LV Septum (systole) 0 cm Left Atria (s.<4.0cm> 0 cm LVPW d(<1.2cm) 0 cm RV (d.<2.3cm) 0 cm LVPW (sytole) 0 cm LV diastole(<5.6CM) 0 cm MV E-F(>70mm/sec) 0 cm LV systole 0 cm LVOT Diameter 0 cm MV exc.(>10mm) 0 cm Est.ejection fraction (50-75%) 0 % DOPPLER: LVIT 0 cm/sec A 0 cm/sec E 0 cm/sec LA 0 cm/sec RVSP 33.2 mmHg LVOT 0 cm/sec AOP1/2T 0 m/s Asc. Ao 0 cm/sec RVOT 0 cm/sec RA 0 cm/sec PA 0 cm/sec AV Gradient Peak 0 mmHg AV Mean 0 mmHg AV Area 0 cm MV Gradient Peak 0 mmHg MV Mean 0 mmHg MV Area 0 cm COMMENTS: LIMITED STUDY (2-D,COLOR,DOPPLER) COMPLETE ECHO DONE ON 12/24/18 Electrical Assembly Technician: Mami APONTE Clinical Resource Director: 1 Dr. Pierson TAPE# PACS Pericardial Effusion N DATE OF SERVICE: 02/07/2019 LIMITED ECHOCARDIOGRAM FINDINGS: Left ventricular chamber size is dilated. Left ventricular systolic function is markedly reduced. Overall ejection fraction is estimated at 20%. TRANSINT:[id number] Voice Confirmation ID: [id number] DOCUMENT ID: [id number] ECHOCARDIOGRAM REPORT [id number] DAISHA,CRUZ AGUILAR MD at 0950 CC: [id number] DICTATION DATE: 02/08/19 1100 CREATIVE SERVICES DESIGNER: 02/08/19 1648 DIS IN 02/07/19 [facility] [address] [facility] [address]
--- NOTE | 2019-02-09 09:50 | HP ---
PATIENT: ALEXANDER ASHTON MEDICAL RECORD: [id number] ACCOUNT: [id number] LOCATION:[address] : 74 ADMISSION DATE: 02/07/19 PCP: No PCP HISTORY AND PHYSICAL EXAMINATION ADMITTING DIAGNOSES: 1. Chest pain/angina. 2. Nonischemic cardiomyopathy. 3. Congestive heart failure, chronic systolic dysfunction. 4. Shortness of breath, dyspnea on exertion. 5. Hypertension. 6. Diabetes. HISTORY OF PRESENT ILLNESS: Mr. Ashton presents with chest pain as well as shortness of breath, found to have mild pulmonary edema on his chest x-ray. He has a known nonischemic cardiomyopathy. He underwent cardiac catheterization last year. He is from [place]. He is frequently in the hospital here, he visits his sister here in the [place] area. He has been on his Coreg and lisinopril; however, his heart rate is approximately 100 and systolic blood pressure is in the 160s. His EKG is with no changes. Troponin is negative. PHYSICAL EXAMINATION: GENERAL APPEARANCE: Well-nourished, well-developed, appears stated age. Level of distress, comfortable. PSYCHIATRIC: Mental status, alert, normal affect. Orientation, oriented to time, place and person. EYES: Lids and conjunctiva, noninjected. No discharge, no pallor. ENT: Lips, teeth, gums, normal dentition. Oropharynx, no cyanosis, no pallor. NECK: Carotid arteries, bilateral normal upstroke, no bruits, no thrills. JUGULAR VEINS: No jugular venous pressure or distention. CERVICAL LYMPH NODES: Nontender, nonenlarged. THYROID: Not enlarged. Nontender. No nodules. LUNGS: Respiratory effort, unlabored. CHEST: Normal curvature. No thoracic deformity. No chest wall tenderness. Percussion, resonant. Auscultation, clear. No wheezes, no rales, no rhonchi. CARDIOVASCULAR: Precordial exam, nondisplaced. No heaves or pericardial thrills. Rate and rhythm, regular. Heart sounds, normal S1, normal S2. No S3, no gallop, no rub. Systolic murmur, not heard. Diastolic murmur, not heard. EXTREMITIES: No cyanosis, no edema. Peripheral pulses, full and equal in all extremities, except as noted. No bruits appreciated. ABDOMEN: Soft, nondistended. Normal aorta. No bruit. Nontender. No masses. Liver, nontender, no hepatomegaly. Spleen, nontender, no splenomegaly. MUSCULOSKELETAL: No joint tenderness. No joint swelling. No erythema. NEUROLOGICAL: Normal gait, normal strength, normal tone. SKIN: Warm and dry. OVERALL IMPRESSION: Mild congestive heart failure from chronic systolic dysfunction. At this time, we will give 1 dose of Lasix to clear the pulmonary edema, restarting his Coreg and lisinopril. There is questionable compliance. His heart rate and blood pressure are definitely not under control. Most likely we can discharge him after this as long as his heart rate and blood pressure are under better control. TRANSINT:[id number] Voice Confirmation ID: [id number] DOCUMENT ID: [id number] HISTORY AND PHYSICAL [id number] ALEXANDER ASHTON JEFFREY MD at 0950 CC: [id number] DICTATION DATE: 02/07/19 1130 CHANGE CONTROL ANALYST: 02/07/19 1203 DIS IN 02/07/19 [place] [id number] [place] [address]
--- NOTE | 2019-02-09 09:50 | DS ---
PATIENT:ALEXANDER ASHTON :74 MEDICAL RECORD: [id number] DISCHARGE SUMMARY ADMISSION DATE: 02/07/19 DISCHARGE DATE: 02/07/19 DISCHARGE DIAGNOSES: 1. Chest pain. 2. Nonischemic cardiomyopathy. 3. Congestive heart failure, chronic systolic dysfunction. 4. Shortness of breath, dyspnea on exertion. 5. Pulmonary edema. 6. Hypertension. 7. Diabetes. HOSPITAL COURSE: Mr. Ashton presents with chest pain, shortness of breath, found to have mild pulmonary edema, which cleared with 1 dose of IV Lasix. His medication compliance was questionable with out of control hypertension that improved with the reinstatement of Coreg, lisinopril, discharged home to continue his follow up with his direct service provider in [place] and assess where he is from. TRANSINT:[id number] Voice Confirmation ID: [id number] DOCUMENT ID: [id number] CRUZ SHERIDAN MD at 0950 CC: [id number] DICTATION DATE: 02/07/19 113 FARMWORKER CRANBERRY: 02/08/19 0030 DIS IN 02/07/19 [facility] [address] [place] [address]
== END 2019-02-07 15:40 | disposition home or self-care (01) ==
LOC: OBSVTIME → D.CATH 03:40 → D.ER 03:40 → OBSVTIME 05:17 → D.M2 05:17 → D.ER 05:17 → EDSTATUS 14:16 → D.CATH 15:40 → D.M2 15:40
PROVIDERS: Family Medicine; ATTEND Internal Medicine Interventional Cardiology
DX: I11.0 Hypertensive heart disease with heart failure (principal); R07.9 Chest pain, unspecified; I42.9 Cardiomyopathy, unspecified; I50.22 Chronic systolic (congestive) heart failure; E11.9 Type 2 diabetes mellitus without complications

== ENCOUNTER 2019-03-10 17:39 | Observation (INO) | payer MEDICARE ==
[~2019-03-10] VITALS: Ht 188 cm; Wt 118.2 kg
--- NOTE | ~2019-03-10 | CN ---
PATIENT NAME:ALEXANDER ASHTON MEDICAL RECORD: [id number] : 74 LOCATION:D.ER ADMIT DATE: ACCOUNT: [id number] CONSULTING PHYSICIAN: CRUZ SHERIDAN MD REFERRING PHYSICIAN: JOSE FORD MD DATE OF CONSULTATION: 03/10/2019 DIAGNOSES: 1. Chest pain. 2. Tachycardia. 3. Hypertension. 4. Nonischemic cardiomyopathy. HISTORY OF PRESENT ILLNESS: Mr. Ashton presents with chest pain. It is quite an acute sharp chest pain that he is having. He as well has some dull aching sensation across there. His heart rate is in the 120s despite him being on carvedilol 25 mg b.i.d. and he denies medical noncompliance. He is not short of breath at this time. He does have a nonischemic cardiomyopathy. Ejection fraction 20%. His EKG is with no ST-T changes. PHYSICAL EXAMINATION: GENERAL APPEARANCE: Well-nourished, well-developed, appears stated age. Level of distress, comfortable. PSYCHIATRIC: Mental status, alert, normal affect. Orientation, oriented to time, place and person. EYES: Lids and conjunctiva, noninjected. No discharge, no pallor. ENT: Lips, teeth, gums, normal dentition. Oropharynx, no cyanosis, no pallor. NECK: Carotid arteries, bilateral normal upstroke, no bruits, no thrills. JUGULAR VEINS: No jugular venous pressure or distention. CERVICAL LYMPH NODES: Nontender, nonenlarged. THYROID: Not enlarged. Nontender. No nodules. LUNGS: Respiratory effort, unlabored. CHEST: Normal curvature. No thoracic deformity. No chest wall tenderness. Percussion, resonant. Auscultation, clear. No wheezes, no rales, no rhonchi. CARDIOVASCULAR: Precordial exam, nondisplaced. No heaves or pericardial thrills. Rate and rhythm, regular. Heart sounds, normal S1, normal S2. No S3, no gallop, no rub. Systolic murmur, not heard. Diastolic murmur, not heard. EXTREMITIES: No cyanosis, no edema. Peripheral pulses, full and equal in all extremities, except as noted. No bruits appreciated. ABDOMEN: Soft, nondistended. Normal aorta. No bruit. Nontender. No masses. Liver, nontender, no hepatomegaly. Spleen, nontender, no splenomegaly. MUSCULOSKELETAL: No joint tenderness. No joint swelling. No erythema. NEUROLOGICAL: Normal gait, normal strength, normal tone. SKIN: Warm and dry. OVERALL IMPRESSION: Chest pain. It is hard to say if this is cardiac. It appears that this is quite pleuritic. I would definitely check for a PE protocol to rule out this. We will give him Lopressor 10 mg IV times 1 now to lessen tachycardia and hypertension, and continue his current medications. He recently had an echocardiogram showing the ejection fraction unchanged to 20%. His cardiac catheterization last year was with absolutely no coronary artery disease. Hence, no workup from the standpoint of ischemic heart disease is needed at this time, only treatment of hypertension and tachycardia. TRANSINT:[id number] Voice Confirmation ID: [id number] DOCUMENT ID: [id number] CONSULT REPORT [id number] ALEXANDER ASHTON JEFFREY MD CC: [id number] DICTATION DATE: 03/10/191906 ASSISTANT PROFESSOR OF MUSIC: 03/10/192006 [facility] [address] [place] [address]
[2019-03-10 18:44] LABS: APTT 25.8 SECONDS (22.8-39.4); INR 1.01 (0.85-1.17); PROTIME 12.8 SECONDS (11.6-15.0)
[2019-03-10 18:48] VITALS: BP 127/92
[2019-03-10 18:50] LABS: BASOPHILS 0.7 % (0-2); EOSINOPHILS 2.4 % (0-7); HEMATOCRIT 32.4 % (42.0-54.0); HEMOGLOBIN 10.2 g/dL (13.5-17.5); LYMPHOCYTES 29.3 % (15-50); MCH 23.7 pg (26.0-34.0); MCHC 31.5 g/dL (31.0-37.0); MCV 75.3 fL (80.0-100.0); MEAN PLATELET VOLUME 10.6 fL (7.4-10.4); MONOCYTES 5.2 % (2-11); NEUTROPHILS 62.4 % (40-80); PLATELET COUNT 177 10x3/uL (130-400); RDW 15.5 % (11.5-14.5); WBC 5.5 10x3/uL (4.8-10.8)
[2019-03-10 19:03] LABS: ALBUMIN 3.4 g/dL (3.4-5.0); ALKALINE PHOSPHATASE 143 U/L (46-116); ALT (SGPT) 18 U/L (10-68); BILIRUBIN - TOTAL 0.16 mg/dL (0.2-1.3); CALCIUM 8.6 mg/dL (8.5-10.1); CARBON DIOXIDE 23.1 mmol/L (21.0-32.0); CHLORIDE - SERUM 100 mmol/L (98-107); CKMB 0.7 U/L (0.0-3.6); CREATINE KINASE 137 UL (21-232); CREATININE - SERUM 2.5 mg/dL (0.6-1.3); MAGNESIUM - SERUM 2.1 mg/dL (1.8-2.4); POTASSIUM - SERUM 4.7 mmol/L (3.5-5.1); PROTEIN - SERUM 7.7 g/dL (6.4-8.2); SODIUM 135 mmol/L (136-145); TROPONIN-I < 0.017 ng/mL (0.000-0.060); UREA NITROGEN 30 mg/dL (7-18); eGFR NON AFRICAN AMERICAN 30 mL/min (90-120)
[2019-03-10 19:17] LABS: CALC OSMOLALITY 299 mosm/kg (275-300)
[2019-03-10 19:21] LABS: GLUCOSE 537 mg/dL (74-106)
[2019-03-10 20:00] VITALS: BP 117/84
[2019-03-10 21:15] VITALS: BP 126/87
--- NOTE | 2019-03-10 21:35 | NUR ---
FINGER STICK BLOOD SUGAR 354
--- NOTE | 2019-03-10 22:25 | NUR ---
FINGER STICK BLOOD SUGAR 147
--- NOTE | 2019-03-10 22:50 | NUR ---
PATIENT ARRIVE FROM ER VIA WHEELCHAIR. PATIENT IS ALERT AND ORIENTED. RESPIRATIONS ARE EVEN AND UNLABORED. ADMISSION VITALS AND WEIGHT COMPLETE. TELEMETRY OBTAINED AND PLACED ON PATIENT. NO S/S OF DISTRESS. NO C/O PAIN. CALL LIGHT WITHIN REACH. WILL CPOC.
[2019-03-11] VITALS (7 sets, daily range): BP systolic 127–156; BP diastolic 74–89; Ht 188 cm; Wt 118.2 kg
[2019-03-11 01:28] LABS: CKMB 0.7 U/L (0.0-3.6); CREATINE KINASE 147 UL (21-232); TROPONIN-I < 0.017 ng/mL (0.000-0.060)
[2019-03-11 06:32] LABS: BASOPHILS 0.6 % (0-2); EOSINOPHILS 3.7 % (0-7); HEMOGLOBIN 9.9 g/dL (13.5-17.5); IMMATURE GRANULOCYTES 0.4 % (0-5); LYMPHOCYTES 41.2 % (15-50); MCH 23.9 pg (26.0-34.0); MCHC 31.9 g/dL (31.0-37.0); MCV 74.9 fL (80.0-100.0); MEAN PLATELET VOLUME 10.3 fL (7.4-10.4); MONOCYTES 5.6 % (2-11); NEUTROPHILS 48.5 % (40-80); PLATELET COUNT 181 10x3/uL (130-400); RBC 4.14 10x6/uL (4.20-6.10); RDW 15.4 % (11.5-14.5); WBC 5.1 10x3/uL (4.8-10.8)
[2019-03-11 07:05] LABS: ALBUMIN 3.4 g/dL (3.4-5.0); ALKALINE PHOSPHATASE 132 U/L (46-116); ALT (SGPT) 16 U/L (10-68); BILIRUBIN - TOTAL 0.25 mg/dL (0.2-1.3); CALCIUM 8.7 mg/dL (8.5-10.1); CARBON DIOXIDE 27.1 mmol/L (21.0-32.0); CHLORIDE - SERUM 104 mmol/L (98-107); CKMB 0.8 U/L (0.0-3.6); CREATINE KINASE 161 UL (21-232); CREATININE - SERUM 2.2 mg/dL (0.6-1.3); POTASSIUM - SERUM 4.9 mmol/L (3.5-5.1); PROTEIN - SERUM 7.2 g/dL (6.4-8.2); SODIUM 139 mmol/L (136-145); TROPONIN-I < 0.017 ng/mL (0.000-0.060); UREA NITROGEN 35 mg/dL (7-18); eGFR NON AFRICAN AMERICAN 34 mL/min (90-120)
[2019-03-11 07:07] LABS: CALC OSMOLALITY 290 mosm/kg (275-300); GLUCOSE 196 mg/dL (74-106)
[2019-03-11 12:23] LABS: CKMB 0.9 U/L (0.0-3.6); CREATINE KINASE 147 UL (21-232); TROPONIN-I < 0.017 ng/mL (0.000-0.060)
--- NOTE | 2019-03-11 13:08 | NUR ---
PT CONVERTED OUT OF AFIBB PER CLIENT PORTFOLIO MANAGER, JUDY. PT RUNNING 76 SINUS RYTHEM. NO COMPLAINTS AT THIS TIME. WILL CONTINUE TO MONITOR.
--- NOTE | 2019-03-11 14:59 | NUR ---
I have reviewed this patient and I concur with the Shift Assessment completed by the Licensed Practical Nurse today this shift.
[2019-03-11 16:09] LABS: APPEARANCE CLEAR (CLEAR); COLOR YELLOW (YELLOW); SPECIFIC GRAVITY 1.025 (1.005-1.020)
[2019-03-11 16:13] LABS: BILIRUBIN NEGATIVE (NEGATIVE); GLUCOSE 100 mg/dL (NEGATIVE); KETONE NEGATIVE (NEGATIVE); NITRITE NEGATIVE (NEGATIVE); PROTEIN TRACE mg/dL (NEGATIVE); UDS - AMPHET NEGATIVE QUAL (NEGATIVE); UDS - BARB NEGATIVE QUAL (NEGATIVE); UDS - BENZO POSITIVE QUAL (NEGATIVE); UDS - COCAINE NEGATIVE QUAL (NEGATIVE); UDS - OPIATE POSITIVE QUAL (NEGATIVE); UDS - PCP NEGATIVE QUAL (NEGATIVE); UDS - THC NEGATIVE QUAL (NEGATIVE); UROBILINOGEN NORMAL (NORMAL)
--- NOTE | 2019-03-11 19:30 | NUR ---
ASSESSMENT COMPLETE, PT A&O. RESPERATIONS EVEN ON RA. IV TO LEFT AC SL, SITE CLEAN AND DRY. PT CURRETNLY DENIES PAIN. PT ASKING FOR FAN, STATES ROOM IS "HOT" INFORMED PT THAT I WILL LOOK AROUND AND SEE IF I CAN FIND ONE.
--- NOTE | 2019-03-11 19:50 | NUR ---
FAN TAKEN TO ROOM FOR PTS COMFORT.
--- NOTE | 2019-03-11 20:54 | NUR ---
HS MEDS GIVEN WITH FRESH ICE WATER. BS 245, COVERED PER S/S. PT CURRENTLY DENIES PAIN OR NEEDS, BED LOW, CL IN REACH.
--- NOTE | 2019-03-11 22:43 | NUR ---
MORPHINE 4 MG GIVEN FOR C/O PAIN, RATES PAIN AT A 7 ON PAIN SCALE.
[2019-03-12] VITALS: BP 113/80
[2019-03-12 04:00] VITALS: BP 112/56
[2019-03-12 06:05] LABS: BASOPHILS 0.6 % (0-2); EOSINOPHILS 3.8 % (0-7); HEMATOCRIT 28.5 % (42.0-54.0); HEMOGLOBIN 9.1 g/dL (13.5-17.5); IMMATURE GRANULOCYTES 0.2 % (0-5); LYMPHOCYTES 39.8 % (15-50); MCH 23.8 pg (26.0-34.0); MCHC 31.9 g/dL (31.0-37.0); MCV 74.6 fL (80.0-100.0); MEAN PLATELET VOLUME 10.3 fL (7.4-10.4); MONOCYTES 6.9 % (2-11); NEUTROPHILS 48.7 % (40-80); PLATELET COUNT 167 10x3/uL (130-400); RBC 3.82 10x6/uL (4.20-6.10); RDW 15.4 % (11.5-14.5)
[2019-03-12 06:29] LABS: BILIRUBIN - TOTAL 0.23 mg/dL (0.2-1.3); CALCIUM 8.2 mg/dL (8.5-10.1); CARBON DIOXIDE 27.9 mmol/L (21.0-32.0); CREATININE - SERUM 2.4 mg/dL (0.6-1.3); POTASSIUM - SERUM 4.9 mmol/L (3.5-5.1); PROTEIN - SERUM 6.6 g/dL (6.4-8.2)
--- NOTE | 2019-03-12 07:30 | NUR ---
RECEIVED PT IN BED AAOX4 RESP UNLABORED SKIN W/D COLOR WNL PT VERY PLEASANT DENIES ANY PAIN AT THIS TIME
[2019-03-12 08:49] VITALS: BP 119/67
[2019-03-12] MEDS ORDERED: METOPROLOL TART50 MG PO (11:23)
--- NOTE | 2019-03-12 11:54 | NUR ---
FSBS 221 REGULAR INSULIN 8 UNITS GIVEN SQ RT ARM
[2019-03-12 12:54] VITALS: BP 121/70
--- NOTE | 2019-03-12 14:42 | MORECARE ---
CASE MANAGEMENT DISCHARGE SUMMARY PATIENT: ALEXANDER ASHTON UNIT: [id number] ADM DATE: 03/10/19 AGE: 48 : 74 SEX: M ROOM/BED: D.2120 AUTHOR: GRECIA FARFAN PHYSICIAN: REFERRING PHYSICIAN: HILARY ARMIJO MD DATE OF SERVICE: 03/12/19 Discharge Plan Patient Name: ALEXANDER ASHTON [facility] [facility] 1970 Planned Disposition: Home Anticipated Discharge Date: 03/12/19 Discharge Date: Expected LOS: 2 Initial Reviewer: [email or web address] Initial Review Date: 03/12/2019 Generated: 03/12/19 3:42 pm Coverage Notice Reviewer: [email or web address] Jey Contreras Notice Issued Date-Time: 03/11/2019 10:06 Notice Type: Medicare Outpatient Observation Notice Notice Delivered To: Patient Relationship to Patient: Self Projector Booth Operator Name: Delivery Method: HAND - Hand Delivered Carolann Days: Prior Verbal Notification: Recipient Understood Notice: Yes Recipient Signature: Yes Med Rec Note Co-signed by Attending: Coverage Notice Comment: Patient Name: ALEXANDER ASHTON Page [phone] at 1442 All edits/amendments must be made on the electronic document DICTATION DATE: 03/12/19 144 APARTMENT LEASING AGENT: P[place]ER 03/12/19 1442 RPT#: [id number] DC DATE: STATUS: ADM IN [place] [address] [place] [address] END OF REPORT
--- NOTE | 2019-03-12 16:05 | NUR ---
PT C/O CHEST PAIN 03/21 STATES I AM GOING TO LAY DOWN SR OMN TELEMETRY WILL CONTINUE TO MONITOR
--- NOTE | 2019-03-12 17:29 | NUR ---
SPOKE WITH DR SHERIDAN STATES PT IS CLEAR FROM CARDIOLOGY STANDPOINT TO DISCHARGE R/O PAIN CARDIAC PT STATES FEELS MUCH BETTER
--- NOTE | 2019-03-12 17:48 | NUR ---
PT DISCHARGED HOME LEFT UNIT VIA W/C WITH ALL PERSONAL BELONGINGS IN STABLE CONDITION
--- NOTE | 2019-03-12 17:49 | NUR ---
REVIEWED DISCHARGE INSTRUCTIONS WITH PT STATES UNDERSTANDING COPY GIVEN DCD SALINE LOCK TO LAC WITH IV CATHETER INTACT SITE FREE OF REDNESS OR EDEMA
== END 2019-03-12 17:48 | disposition home or self-care (01) ==
LOC: D.ER 17:39 → OBSVTIME 21:58 → D.M2 21:58 → D.SDCHOLD 03-11 07:51 → D.M2 03-11 07:55
PROVIDERS: Emergency Medicine; Family Medicine; ADMIT Internal Medicine Nephrology; ATTEND Internal Medicine Nephrology
DX: R07.9 Chest pain, unspecified (principal); R00.0 Tachycardia, unspecified; I42.9 Cardiomyopathy, unspecified; I20.0 Unstable angina; I13.0 Hypertensive heart and chronic kidney disease with heart failure and stage 1 through stage 4 chronic kidney disease, or unspecified chronic kidney disease; E11.22 Type 2 diabetes mellitus with diabetic chronic kidney disease; N18.9 Chronic kidney disease, unspecified; I50.22 Chronic systolic (congestive) heart failure; N17.9 Acute kidney failure, unspecified; Z95.810 Presence of automatic (implantable) cardiac defibrillator; J44.9 Chronic obstructive pulmonary disease, unspecified; K31.819 Angiodysplasia of stomach and duodenum without bleeding

== ENCOUNTER 2019-03-25 20:40 | Emergency (ER) | payer MEDICARE ==
[~2019-03-25] VITALS: Ht 188 cm; Wt 123.2 kg
[~2019-03-25 20:40] MED LIST changes: +METOPROLOL TART50 MG PO
[2019-03-25 20:45] VITALS: Ht 188 cm; Wt 123.2 kg
[2019-03-25 21:04] LABS: BASOPHILS 0.4 % (0-2); EOSINOPHILS 2.2 % (0-7); HEMATOCRIT 29.8 % (42.0-54.0); HEMOGLOBIN 9.3 g/dL (13.5-17.5); IMMATURE GRANULOCYTES 0.4 % (0-5); MCH 23.4 pg (26.0-34.0); MCHC 31.2 g/dL (31.0-37.0); MCV 75.1 fL (80.0-100.0); MEAN PLATELET VOLUME 9.2 fL (7.4-10.4); MONOCYTES 4.9 % (2-11); NEUTROPHILS 67.1 % (40-80); PLATELET COUNT 176 10x3/uL (130-400); RBC 3.97 10x6/uL (4.20-6.10); RDW 15.7 % (11.5-14.5); WBC 5.5 10x3/uL (4.8-10.8)
[2019-03-25 21:18] LABS: ALBUMIN 3.3 g/dL (3.4-5.0); ALKALINE PHOSPHATASE 152 U/L (46-116); ALT (SGPT) 16 U/L (10-68); BILIRUBIN - TOTAL 0.23 mg/dL (0.2-1.3); CALC OSMOLALITY 296 mosm/kg (275-300); CALCIUM 9.7 mg/dL (8.5-10.1); CARBON DIOXIDE 27.4 mmol/L (21.0-32.0); CHLORIDE - SERUM 104 mmol/L (98-107); CREATININE - SERUM 2.1 mg/dL (0.6-1.3); PROTEIN - SERUM 7.7 g/dL (6.4-8.2); SODIUM 140 mmol/L (136-145); UREA NITROGEN 26 mg/dL (7-18); eGFR NON AFRICAN AMERICAN 36 mL/min (90-120)
[2019-03-25 21:22] LABS: GLUCOSE 335 mg/dL (74-106)
[2019-03-25 21:25] LABS: MAGNESIUM - SERUM 1.9 mg/dL (1.8-2.4); PRO BNP 967 pg/mL (0-125)
[2019-03-25 21:26] LABS: TROPONIN-I < 0.017 ng/mL (0.000-0.060)
[2019-03-25 21:40] LABS: UDS - AMPHET NEGATIVE QUAL (NEGATIVE); UDS - BARB NEGATIVE QUAL (NEGATIVE); UDS - BENZO POSITIVE QUAL (NEGATIVE); UDS - COCAINE NEGATIVE QUAL (NEGATIVE); UDS - OPIATE POSITIVE QUAL (NEGATIVE); UDS - PCP NEGATIVE QUAL (NEGATIVE); UDS - THC NEGATIVE QUAL (NEGATIVE)
[2019-03-25] MEDS ORDERED: OMEPRAZOLE20 M1 PO (21:41)
[2019-03-25] MEDS ORDERED: ZOFRAN ODT4 MG/UDTAB PO (21:41)
[2019-03-25 21:42] LABS: APPEARANCE CLEAR (CLEAR); COLOR YELLOW (YELLOW); GLUCOSE 1000 mg/dL (NEGATIVE); NITRITE NEGATIVE (NEGATIVE); SPECIFIC GRAVITY 1.015 (1.005-1.020)
[2019-03-25 21:43] LABS: BILIRUBIN NEGATIVE (NEGATIVE); KETONE NEGATIVE (NEGATIVE); UROBILINOGEN NORMAL (NORMAL)
[2019-03-25 21:44] LABS: PROTEIN 1+ mg/dL (NEGATIVE)
[2019-03-25 22:32] VITALS: BP 131/72
== END 2019-03-25 22:32 | disposition home or self-care (01) ==
LOC: D.ER 20:40
PROVIDERS: Family Medicine
DX: R07.9 Chest pain, unspecified (principal); I11.0 Hypertensive heart disease with heart failure; I50.9 Heart failure, unspecified; I25.10 Atherosclerotic heart disease of native coronary artery without angina pectoris; E11.9 Type 2 diabetes mellitus without complications; I42.9 Cardiomyopathy, unspecified; N28.9 Disorder of kidney and ureter, unspecified

== ENCOUNTER 2020-01-20 17:26 | Inpatient (IN) | payer OTHER, MEDICARE ==
[~2020-01-20] VITALS: Ht 182.9 cm; Wt 123.2 kg
--- NOTE | ~2020-01-20 | HEMODYNAMI ---
PATIENT:ALEXANDER ASHTON MEDICAL RECORD: [id number] : 74 [facility]# [id number] ADMISSION DATE: 01/20/20 Generatedon:01/21/202014:55 Patient name: ALEXANDER ASHTON Patient #: [id number] SSN: [id number] : 1970 Date of study: 01/21/2020 Page: Of Hemodynamic Procedure Report Patient Data Patient Demographics Procedure consent was obtained First Name: ALEXANDER Gender: Male Last Name: DAISHA : 1970 Patient #: [id number] Age: 49 year(s) Race: Black SSN: [id number] Additional ID: [id number] Contact details [address]: [address] [place] [address] State: [place] City: [place] Zip code: [address] Past Medical History Allergies Allergen Reaction Date Comments Reported Other allergy 01/21/2020 CIPRO, TRAMADOL Admission Admission Data Admission Date: 01/20/2020 Admission Time: 18:44 Arrival Date: 01/21/2020 Arrival Time: 0:00 Admit Source: Other Insurance Payor: Private Room #: D.2124 health insurance [facility] #: [id number] Height (in.): 72 BSA: 2.42 (m2) Height (cm.): 182.88 BMI: 36.78 (kg/m2) Weight (lbs.): 271.17 Weight (kg.): 123 Lab Results Lab Result Date: 01/21/2020 Lab Result Time: 0:00 Biochemistry Name Units Result Min Max BUN mg/dl 28 --(----)-* 7 18 Creatinine mg/dl 2.3 --(----)-* 0.6 1.3 eGFR ml/min 39 *-(----)-- 90 120 AM CBC Name Units Result Min Max Hematocrit % 33 *-(----)-- 42 54 Hemoglobin g/dl 9.9 *-(----)-- 13.5 17.5 Procedure Procedure Types Cath Procedure Diagnostic Procedure [facility] w/Coronaries Sedation Charges Moderate Sedation up to 15 minutes Procedure Description Procedure Date Procedure Date: 01/21/2020 Procedure Start Time: 14:41 Procedure End Time: 14:53 Procedure Staff Name Function Francisco Benz MD Performing Physician Kennedi Roca RT Monitor Celeste Fontana RT Scrub Nikos Barnett RN Nurse Procedure Data Cath Procedure Fluoroscopy Diagnostic fluoroscopy Total fluoroscopy Time: 2 time: 2 min min Diagnostic fluoroscopy Total fluoroscopy dose: 626 dose: 626 mGy mGy Contrast Material Contrast Material Type Amount (ml) Isovue 370 76 Entry Location Entry Primary Successful Side Size Upsize Upsize Entry Closure Succes sful Closure Location (Fr) 1 (Fr) 2 (Fr) Remarks Device Remarks Femoral Right 5 Fr Exoseal artery Estimated blood loss: 5 ml Diagnostic catheters Device Type Used For End Catheter Placement MULTIPACK JL 4.0 5Fr Procedure catheter MULTIPACK 3DRC 5Fr Procedure catheter MULTIPACK Pigtail 5 Fr Procedure catheter Procedure Complications No complications Procedure Medications Medication Administration Route Dosage Oxygen etCO2 Nasal cannula 2 l/min Lidocaine 2% added to field 20 Heparin Flush Bag added to field 2 bags (1000units/500ml NS) 0.9% NaCl I.V. 100 ml/hr Versed I.V. 2 mg Fentanyl I.V. 100 mcg Hemodynamics Rest BSA: 2.42 (m2) O2 Consumption: Estimated: 308.79 (ml/min) O2 Consumption indexed : Estimated:127.6 (ml/min/m) Heart Rate: 89 (bpm) Pressure Samples Time Site Value (mmHg) Purpose Heart Use Rate(bpm) 14:47 LV 123/26,41 Snapshot 83 Gradients Valve Time Site Site Mean SEP/DFP Peak To Heart Use 1 2 (mmHg) (sec/min) Peak Rate (mmHg) (bpm) Aortic 14:48 LV AO 84 Snapshots Pre Cath Intra NCS Post Cath Vital Signs Time Heart Resp SPO2 etCO2 NIBP (mmHg) Rhythm Pain Sedation Rate (ipm) (%) (mmHg) Status Level (bpm) 14:31:21 91 23 100 0 Measuring NSR 0 (11) 10(A) , No pain 14:33:21 90 16 98 0 150/95(121) NSR 0 (11) 10(A) , No pain 14:37:36 88 11 99 34 154/94(115) NSR 0 (11) 10(A) , No pain 14:41:52 84 13 100 38.5 131/89(106) NSR 0 (11) 10(A) , No pain 14:46:00 80 10 100 37 145/94(107) NSR 0 (11) 10(A) , No pain 14:50:18 83 10 100 33.2 143/85(106) NSR 0 (11) 10(A) , No pain Medications Time Medication Route Dose Verified Delivered Reason Notes Eff ectiveness by by 14:30:01 0.9% NaCl I.V. 100 Francisco Buffie Per ml/hr St Chas Barnett RN physician 14:30:37 Oxygen etCO2 2 Francisco Swatiie used for Nasal l/min St Chas Barnett RN procedure cannula 14:30:45 Lidocaine 2% added 20ml Francisco Francisco for local to vial [facility] anesthetic field MD MCGILL 14:30:51 Heparin Flush added 2 Francisco Francisco used for Bag to bags [facility] procedure (1000units/500ml field MD MCGILL NS) 14:36:47 Versed I.V. 2 mg Francisco Longoriaie for St Chas Banrett RN sedation 14:36:53 Fentanyl I.V. 100 Francisco Longoria[address] for mcg St Chas Barnett RN sedation Procedure Log Time Note 14:10:16 Informed consent obtained and on chart 14:10:42 Procedure Status Urgent Heart Cath (IP). 14:10:43 Time tracking: Regular hours (M-F 7:00 - 5:00) 14:10:51 Plan of Care:Hemodynamics will remain stable., Cardiac rhythm will remain stable., Comfort level will be maintained., Respiratory function will remain adequate., Patient/ family verbilizes understanding of procedure., Procedure tolerated without complication., Recovers from procedure without complications.. 14:12:55 H&P Date Dictated: 01/21/2020 ER History on chart.. 14:13:11 Patient allergic to Other allergyCIPRO, TRAMADOL 14:13:58 Lab Result : BUN 28 mg/dl 14::58 Lab Result : eGFR AM 39 ml/min 14:13:58 Lab Result : Creatinine 2.3 mg/dl 14::58 Lab Result : Hematocrit 33 % 14:13:58 Lab Result : Hemoglobin 9.9 g/dl 14:15:31 Patient Weight : 271.17 lbs 14:15:55 Patient Height : 72 inches 14:17:00 Celeste TERRAZAS(Collins) (ALBERTO) sent for patient. Start room use. 14:17:40 Pre-procedure instructions explained to patient. 14:17:40 Pre-op teaching completed and patient verbalized understanding. 14:17:42 Family in patients room. 14:17:45 Patient NPO since Midnight. 14:17:50 Alarms reviewed by R. N. 14:17:50 Sharps counted by scrub and verified by R.N. 14:20:07 Arrival Date: 01/21/2020 12:00:00 AM 14:20:08 Admit Source: Other 14:20:13 Insurance Payor : Private health insurance 14:24:00 Patient received from Med II to CCL 1 Alert and oriented. Tansferred to table in Supine position. 14:24:07 Warm blankets applied, and karen hugger turned on for patient comfort. 14:24:08 Correct patient and procedure confirmed by team. 14:24:08 ECG and BP/O2 sat monitors applied to patient. 14:24:11 Is the patient allergic to Iodine/contrast media? No. 14:29:32 Vital chart was started 14:29:57 Baseline sample Acquired. 14:30:01 0.9% NaCl 100 ml/hr I.V. was administered by Nikos Barnett RN; Per physician; Verbal order read back and verified. 14:30:06 Rhythm: sinus rhythm 14:30:08 Full Disclosure recording started 14:30:10 - 14:30:18 Was the patient premedicated? Yes 14:30:30 Is patient on blood thinner?No 14:30:34 ----Pre-sedation anethsthesia assessment.---- 14:30:37 Oxygen 2 l/min etCO2 Nasal cannula was administered by Nikos Barnett RN; used for procedure; Verbal order read back and verified. 14:30:38 Previous problem with sedation/anesthesia? No ? 14:30:41 Snore? Yes 14:30:45 Lidocaine 2% 20ml vial added to field was administered by Francisco Benz MD; for local anesthetic; Verbal order read back and verified. 14:30:45 Sleep apnea? No 14:30:51 Heparin Flush Bag (1000units/500ml NS) 2 bags added to field was administered by Francisco Benz MD; used for procedure; Verbal order read back and verified. 14:30:51 Deviated septum? Unknown 14:30:54 Opens mouth fully? Yes 14:30:56 Sticks out tongue? Yes 14:30:59 Airway obstruction? No ? 14:31:03 Dentures? No ? 14:31:08 Pre procedure: right dorsailis pedis pulse 2+ Normal; easily identifiable; not easily obliterated 14:31:43 Vital chart was stopped 14:31:45 IV patent on arrival in left forearm with 0.9% NaCl at [facility]. 14:32:00 Lab results completed and on chart. 14:32:28 Vital chart was started 14:34:56 Modified Oscar's test Ulnar > 7 seconds. 14:34:59 Patient pain scale 0/10 ?. 14:35:05 Risk of Mortality: 0.1 14:35:08 Risk of blood transfusion: 12.0 14:35:12 Risk of BEATRIZ: 18.7 14:35:16 Right groin area was prepped with chlora-prep and draped in sterile fashion 14:35:21 --------ALL STOP TIME OUT------ 14:35:22 Final Timeout: patient, procedure, and site verified with staff and physician. All members of the team are in agreement. 14:35:24 Right groin site verified by team. 14:35:28 Fire Safety Assessment: A--An alcohol-based skin anteseptic being used preoperatively., C--Open oxygen or nitrous oxide is being used., D--An ESU, laser, or fiber-optic light is being used. 14:35:32 Physical assessment completed. ASA score P 3 - A patient with severe systemic disease as per Francisco Benz MD. 14:35:38 1) 90+ Normal kidney functon but urine findings or structural abnormalities or genetic trait point to kidney disease. 14:35:44 Maximum allowable contrast dose (3.7 X eGFR X 0.75)108 ml. 14:35:48 Sedation plan: IV Moderate Sedation Medication:Versed, Fentanyl 14:36:38 ACC Patient presents with Stable Angina CCS Anginal Class 4--Inability to carry out any physical activity w/o angina. Angina may occur at rest. 14:36:47 Versed 2 mg I.V. was administered by Nikos Barnett RN; for sedation; Verbal order read back and verified. 14:36:53 Fentanyl 100 mcg I.V. was administered by Nikos Barnett RN; for sedation; Verbal order read back and verified. 14:36:53 Use device set Femoral Dx 14:36:55 ACIST Syringe (37470) opened to sterile field. 14:36:55 Bag Decanter (2002S) opened to sterile field. 14:36:56 Medline Cath Pack ([id number]) opened to sterile field. 14:36:57 ACIST Hand Control (42095) opened to sterile field. 14:36:57 ACIST Manifold (17216) opened to sterile field. 14:36:58 DIAGNOSTIC Multipack 5Fr catheter set ([id number]) opened to sterile field. 14:37:00 SHEATH 5FR [place] (YBB373) opened to sterile field. 14:37:00 EMERALD Guide Wire (056-419) opened to sterile field. 14:41:14 Procedure started. 14:41:30 Local anesthetic to right femoral artery with Lidocaine 2% by Francisco Doherty MD.INITIAL ACCESS ONLY 14:42:17 A 5 Fr sheath was inserted into the Right Femoral artery 14:42:25 A MULTIPACK JL 4.0 5Fr catheter was advanced over the wire and used for Procedure. 14:44:20 LCA angiography performed. 14:44:22 Injector settings: Ml/sec: 3, Volume: 6, 14:44:29 Catheter removed. 14:44:35 A MULTIPACK 3DRC 5Fr catheter was advanced over the wire and used for Procedure. 14:45:22 RCA angiography performed. 14:45:27 Injector settings: Ml/sec: 3, Volume: 6, 14:46:18 ACCDominant side:Right 14:46:30 Catheter removed. 14:46:36 A MULTIPACK Pigtail 5 Fr catheter was advanced over the wire and used for Procedure. 14:46:44 LV gram done using ESTRADA 14:47:52 LV hemodynamics recorded. 14:48:06 EF : 20 % 14:48:18 Catheter removed. 14:48:21 EXOSEAL 5Fr (EX500) opened to sterile field. 14:50:39 Sheath removed intact; hemostasis achieved with Exoseal to the Right Femoral artery. 14:50:42 Procedure ended.(Physican Out) 14:51:14 Fluoroscopy time 02.00 minutes. 14:51:21 Fluoroscopy dose: 626 mGy 14:51:21 Flurop Dose total: 626 14:51:29 Dose Area Product 67972 mGy/cm. 14:51:33 Contrast amount:Isovue 370 76ml. 14:51:36 Maximum allowable dose exceeded? No. 14:51:38 Sharps counted by scrub and verified by R.N. 14:51:43 Post-op/insertion site Right Femoral artery dressed using a 4 x 4 and Tegaderm. 14:51:49 Post right femoral artery:stable, soft, clean and dry 14:51:51 Post Procedure Pulses reassessed and unchanged 14:51:54 Post procedure: right dorsailis pedis pulse 2+ Normal; easily identifiable; not easily obliterated. 14:51:59 Post-procedure physical assessment completed. ASA score P 3 - A patient with severe systemic disease as per Francisco Benz MD. 14:52:02 Post procedure rhythm: unchanged. 14:52:09 Estimated blood loss: 5 ml 14:52:11 Post procedure instruction explained to patient.Patient verbalizes understanding. 14:52:12 Patient needs reinforcement of post procedure teaching. 14:52:24 Procedure type changed to Cath procedure, Diagnostic procedure, LHC, C w/Coronaries, Sedation Charges, Moderate Sedation up to 15 minutes 14:52:59 Procedure and supply charges have been captured, reviewed, submitted an d are correct. 14:53:03 Procedure Complication : No complications 14:53:08 LHC Findings: mild to moderate CAD (<70%) 14:53:09 Operative report dictated upon procedure completion. 14:53:10 See physician's report for complete and final results. 14:53:12 Report given to [facility]. 14:53:16 Patient transfered to [facility] with Bed. 14:53:21 Procedure ended. 14:53:21 Full Disclosure recording stopped 14:53:27 End room use (Document Last) 14:54:32 End room use (Document Last) 14:54:53 End room use (Document Last) 14:55:06 Vital chart was stopped Device Usage Item Name Manufacture Quantity Catalog Hospital Part Current Minimal L ot# / Number Charge Number Stock Stock Serial# Code ACIST Acist 1 14874 763792 389042 067336 20 Syringe Medical (36920) Systems Inc Bag Microtek 1 839775 28621 176776 5 Decanter Medical Inc. () Medline Medline 1 [id number] 609004 87330 452194 5 Cath Pack ([id number]) ACIST Hand Acist 1 40343 729697 532460 317602 5 Control Medical (92039) Systems Inc ACIST Acist 1 75887 455891 117781 495055 5 Manifold Medical (91069) Systems Inc DIAGNOSTIC Cardinal 1 [id number] 831863 10728 962776 30 Multipack Health 5Fr catheter set (AZ7289) SHEATH 5FR Terumo 1 NWO720 755848 699181 853017 5 [place] (XAY100) EMERALD Cardinal 1 502-455 842194 798268 895011 5 Guide Wire Health (502-455) MULTIPACK Cardinal 1 629891 5 JL 4.0 5Fr Health catheter MULTIPACK Cardinal 1 649474 5 3DRC 5Fr Health catheter MULTIPACK Cardinal 1 885929 5 Pigtail 5 Health Fr catheter EXOSEAL 5Fr Cardinal 1 EX500 853088 967978 899098 10 (EX500) Health Signature Audit [place] Stage Time Signature Unsigned Intra-Procedure 01/21/2020 Kennedi Roca 2:54:32 PM RT(R) Intra-Procedure 01/21/2020 Nikos Barnett RN 2:54:53 PM Intra-Procedure 01/21/2020 Francisco Myers 2:55:05 PM Chas MCGILL [place] [address] [place] [address]
[~2020-01-20 17:26] MED LIST changes: +OMEPRAZOLE20 M1 PO; +ZOFRAN ODT4 MG/UDTAB PO
[2020-01-20 17:52] VITALS: BP 160/91
[2020-01-20 17:53] LABS: BASOPHILS 0.5 % (0-2); EOSINOPHILS 2.9 % (0-7); HEMATOCRIT 33.5 % (42.0-54.0); HEMOGLOBIN 9.9 g/dL (13.5-17.5); IMMATURE GRANULOCYTES 0.3 % (0-5); LYMPHOCYTES 31.9 % (15-50); MCH 23.3 pg (26.0-34.0); MCHC 29.6 g/dL (31.0-37.0); MEAN PLATELET VOLUME 9.9 fL (7.4-10.4); MONOCYTES 7.8 % (2-11); NEUTROPHILS 56.6 % (40-80); RBC 4.24 10x6/uL (4.20-6.10); RDW 18.6 % (11.5-14.5); WBC 5.9 10x3/uL (4.8-10.8)
[2020-01-20 18:09] LABS: CALC OSMOLALITY 284 mosm/kg (275-300); CALCIUM 8.8 mg/dL (8.5-10.1); CARBON DIOXIDE 31.1 mmol/L (21.0-32.0); CHLORIDE - SERUM 107 mmol/L (98-107); CREATININE - SERUM 2.2 mg/dL (0.6-1.3); POTASSIUM - SERUM 4.4 mmol/L (3.5-5.1); SODIUM 140 mmol/L (136-145); UREA NITROGEN 26 mg/dL (7-18); eGFR NON AFRICAN AMERICAN 34 mL/min (90-120)
[2020-01-20 18:10] LABS: GLUCOSE 109 mg/dL (74-106)
[2020-01-20 18:26] VITALS: BP 174/90
[2020-01-20 18:26] LABS: ALBUMIN 3.3 g/dL (3.4-5.0); ALKALINE PHOSPHATASE 120 U/L (30-120); ALT (SGPT) 26 U/L (10-68); BILIRUBIN - TOTAL 0.25 mg/dL (0.2-1.3); CKMB 1.4 U/L (0.0-3.6); CREATINE KINASE 248 UL (21-232); MAGNESIUM - SERUM 2.2 mg/dL (1.8-2.4); PRO BNP 2277 pg/mL (0-125); PROTEIN - SERUM 7.6 g/dL (6.4-8.2); TROPONIN-I < 0.017 ng/mL (0.000-0.060)
[2020-01-20 18:38] LABS: PLATELET COUNT 230 10x3/uL (130-400)
[2020-01-20 18:49] LABS: APTT 26.9 SECONDS (22.8-39.4); INR 0.95 (0.85-1.17); PROTIME 12.7 SECONDS (11.6-15.0)
[2020-01-20 18:50] LABS: D-DIMER-QUANTITATIVE 0.81 ug/mLFEU (0.20-0.54)
[2020-01-20 19:00] VITALS: BP 177/81
--- NOTE | 2020-01-20 19:12 | NUR ---
REPORT TO ASH ANGELO
[2020-01-20 20:02] LABS: % SATURATION 8 % (15-55); IRON 30 ug/dl (35-150); TOTAL IRON BIND CAPACITY 339 ug/dl (260-445); UNSAT IRON BIND CAPACITY 309 ug/dl (150-375)
--- NOTE | 2020-01-20 21:00 | NUR ---
PATIENT ARRIVED FROM ER. PATIENT IS ALERT AND ORIENTED, RESTING COMFORTABLY IN BED. RESPIRATIONS ARE EVEN AND UNLABORED. NO S/S OF DISTRESS. NO C/O PAIN. CALL LIGHT WITHIN REACH. WILL CPOC.
[2020-01-20 22:30] VITALS: Ht 182.9 cm; Wt 123.2 kg
[2020-01-21] VITALS (11 sets, daily range): BP systolic 108–125; BP diastolic 67–87
[2020-01-21 00:58] LABS: CKMB 1.3 U/L (0.0-3.6); CREATINE KINASE 245 UL (21-232)
[2020-01-21 01:00] LABS: TROPONIN-I < 0.017 ng/mL (0.000-0.060)
[2020-01-21 05:41] LABS: HEMOGLOBIN 9.9 g/dL (13.5-17.5); LYMPHOCYTES 40.1 % (15-50); MCH 23.7 pg (26.0-34.0); MCV 79.1 fL (80.0-100.0); MEAN PLATELET VOLUME 10.1 fL (7.4-10.4); NEUTROPHILS 52.3 % (40-80); PLATELET COUNT 224 10x3/uL (130-400); RBC 4.17 10x6/uL (4.20-6.10); RDW 18.6 % (11.5-14.5); WBC 6.4 10x3/uL (4.8-10.8)
[2020-01-21 06:09] LABS: ALBUMIN 3.1 g/dL (3.4-5.0); ALKALINE PHOSPHATASE 110 U/L (30-120); ALT (SGPT) 25 U/L (10-68); BILIRUBIN - TOTAL 0.27 mg/dL (0.2-1.3); CALC OSMOLALITY 290 mosm/kg (275-300); CARBON DIOXIDE 30.1 mmol/L (21.0-32.0); CHLORIDE - SERUM 106 mmol/L (98-107); CKMB 0.9 U/L (0.0-3.6); CREATINE KINASE 218 UL (21-232); CREATININE - SERUM 2.3 mg/dL (0.6-1.3); GLUCOSE 138 mg/dL (74-106); MAGNESIUM - SERUM 2.3 mg/dL (1.8-2.4); PROTEIN - SERUM 7.1 g/dL (6.4-8.2); SODIUM 142 mmol/L (136-145); TROPONIN-I < 0.017 ng/mL (0.000-0.060); UREA NITROGEN 28 mg/dL (7-18); eGFR NON AFRICAN AMERICAN 32 mL/min (90-120)
--- NOTE | 2020-01-21 09:34 | NUR ---
heart cath consents signed.
[2020-01-21 09:46] LABS: CHOL - HDL RATIO 4.8 ratio (2.3-4.9); LDL-HDL RATIO 2.6 ratio (1.5-3.5)
--- NOTE | 2020-01-21 13:24 | NUR ---
I have reviewed this patient and I concur with the Shift Assessment completed by the Licensed Practical Nurse today this shift.
--- NOTE | 2020-01-21 15:05 | NUR ---
PT RETURNED FROM HAND SURGEON LAYING FLAT ALERT AND ORIENTED. VS STABLE. ON ROOM AIR. RIGHT GROIN SOFT SHOWS NO S/S OF HEMATOMA DRESSING C/D/I. PP CHECKED. PT INSTURCTED TO LAY FLAT FOR TWO HOURS TILL 1700. PT VERBALIZED UNDERSTANDING. GAVE PT A URINAL. BED LOW. CL IN REACH. WILL CONTINUE TO MONITOR.
[2020-01-21 15:10] LABS: BILIRUBIN NEGATIVE (NEGATIVE); GLUCOSE NEGATIVE (NEGATIVE); KETONE NEGATIVE (NEGATIVE); NITRITE NEGATIVE (NEGATIVE); SPECIFIC GRAVITY 1.015 (1.005-1.020); UROBILINOGEN NORMAL (NORMAL)
[2020-01-21 15:16] LABS: BACTERIA NONE SEEN /hpf (NEGATIVE); EPITHELIAL CELLS 0-5 /hpf (0-5); RED CELLS - URINE NONE SEEN /hpf (0-5); UDS - AMPHET NEGATIVE QUAL (NEGATIVE); UDS - BARB NEGATIVE QUAL (NEGATIVE); UDS - BENZO NEGATIVE QUAL (NEGATIVE); UDS - COCAINE NEGATIVE QUAL (NEGATIVE); UDS - OPIATE POSITIVE QUAL (NEGATIVE); UDS - PCP NEGATIVE QUAL (NEGATIVE); UDS - THC NEGATIVE QUAL (NEGATIVE); WHITE CELLS - URINE 0-5 /hpf (NEGATIVE)
[2020-01-21 15:17] LABS: HYALINE CAST 0-5 /lpf (NONE SEEN)
--- NOTE | 2020-01-21 16:44 | NUR ---
RIGHT GROIN SOFT SHOWS NO S/S OF HEMATOMA DRESSING C/D/I.
--- NOTE | 2020-01-21 19:07 | NUR ---
RECEIVED BEDSIDE REPORT. PATIENT IS ALERT AND ORIENTED, RESTING COMFORTABLY IN BED. RESPIRATIONS ARE EVEN AND UNLABORED. NNO S/S OF DISTRESS. NO C/O PAIN. CALL LIGHT WITHIN REACH. WILL CPOC.
[2020-01-22] VITALS: BP 103/62
[2020-01-22 04:00] VITALS: BP 125/66
[2020-01-22 04:21] LABS: BASOPHILS 0.5 % (0-2); EOSINOPHILS 3.3 % (0-7); HEMATOCRIT 29.6 % (42.0-54.0); HEMOGLOBIN 8.6 g/dL (13.5-17.5); IMMATURE GRANULOCYTES 0.2 % (0-5); LYMPHOCYTES 30.8 % (15-50); MCH 23.1 pg (26.0-34.0); MCHC 29.1 g/dL (31.0-37.0); MCV 79.4 fL (80.0-100.0); MEAN PLATELET VOLUME 9.7 fL (7.4-10.4); MONOCYTES 6.9 % (2-11); NEUTROPHILS 58.3 % (40-80); PLATELET COUNT 195 10x3/uL (130-400); RBC 3.73 10x6/uL (4.20-6.10); RDW 18.6 % (11.5-14.5); WBC 6.4 10x3/uL (4.8-10.8)
[2020-01-22 04:48] LABS: ALBUMIN 2.8 g/dL (3.4-5.0); ANION GAP 9.2 mmol/L (8-16); BILIRUBIN - TOTAL 0.23 mg/dL (0.2-1.3); CARBON DIOXIDE 30.1 mmol/L (21.0-32.0); MAGNESIUM - SERUM 2.1 mg/dL (1.8-2.4); POTASSIUM - SERUM 4.3 mmol/L (3.5-5.1); PROTEIN - SERUM 6.5 g/dL (6.4-8.2)
[2020-01-22 04:49] LABS: CREATININE - SERUM 2.9 mg/dL (0.6-1.3)
--- NOTE | 2020-01-22 08:03 | NUR ---
SPOKE WITH EMILY BECKER THAT PT HAS BEEN RECEVIING MORPHINE Q3H AFTER CLEAN CATH YESTERDAY AND EF OF 20%. SHE STATES TO DC TO ISOSORBIDE DINITRATE AND ORDER 60MG PO ISOSORBIDE MONONITRATE DAILY. SHE ALSO STATES TO DC MORPHINE AND THAT THE MORPHINE WILL NOT HELP PT'S CHEST PRESSURE PAIN. NITRO SUBLINGUAL WILL. I VERBALIZED UNDERSTANDING.
--- NOTE | 2020-01-22 08:51 | CN ---
PATIENT NAME:ALEXANDER ASHTON MEDICAL RECORD: [id number] : 74 LOCATION:D. D.2124 ADMIT DATE: 01/22/20 ACCOUNT: [id number] CONSULTING PHYSICIAN: LALIT MARTINEZ MD REFERRING PHYSICIAN: MARGE CAMPOS MD DATE OF CONSULTATION: 01/21/2020 HISTORY OF PRESENT ILLNESS: A 49-year-old gentleman with a history of cardiomyopathy. Last angiography 4 years ago, had luminal irregularities at that point. Admitted with angina, acute coronary syndrome. Over the past week has increasing dyspnea, chest tightness, pressure, shortness of breath with exertion. Rest symptomology yesterday. Responded to nitroglycerin as well as IV Lasix. We are asked to see him concerning his cardiovascular status. PAST MEDICAL HISTORY: Includes; 1. History of hypertension. 2. Hyperlipidemia. 3. Diabetes mellitus. 4. Cardiomyopathy. MEDICATIONS: Include Flomax 0.4 every day, metoprolol 100 b.i.d., aspirin 325 every day, Seroquel 200 every day, Lasix 40 every day, insulin 40 units every day. SOCIAL HISTORY: Nonsmoker, nondrinker. Easily takes care of all his ADLs. He does try to walk on a regular basis. ALLERGIES: CIPRO, TRAMADOL. REVIEW OF SYSTEMS: The patient reports easy bruising but reports no swollen glands. The patient reports no fever, no night sweats, no significant weight gain, no significant weight loss. No significant exercise tolerance. The patient reports no dry eyes, no irritation, no vision change. Patient reports no difficulty hearing and no ear pain. Patient reports no frequent nose bleeds or nose and sinus problems. Patient reports on arm pain on exertion. No shortness of breath while lying down. No history of heart murmur. Patient reports no cough, no wheezing or coughing up blood. Patient reports no abdominal pain, no vomiting. Normal appetite. No diarrhea and not vomiting blood. No nausea and no constipation. Patient reports no incontinence. No difficulty urinating. No hematuria. No increased frequency. Patient reports no muscle aches. No weakness, no arthralgias, no back pain. No swelling of the extremities. Patient reports no abnormal mole, no jaundice, no rashes. Reports no loss of consciousness. No weakness and no numbness. No seizures, dizziness, or headaches. The patient reports no depression, no sleep disturbance, feeling safe in a relationship and no alcohol abuse. Patient reports on fatigue. Reports no runny nose or sinus pressure. No itching, no hives, and no frequent sneezing. PHYSICAL EXAMINATION: GENERAL: Pleasant gentleman in no acute distress. VITAL SIGNS: Blood pressure 121/78, pulse 93 and regular. HEENT: Normocephalic, atraumatic. NECK: No bruits noted. HEART: Regular. S3 gallop is noted. A II/ systolic ejection murmur. LUNGS: Fair air excursion. CONSULT REPORT [id number] DAISHA,ALEXANDER ABDOMEN: Soft, nontender. EXTREMITIES: Pulses are preserved, 2+ with no edema. DIAGNOSTIC DATA: EKG shows LVH, poor aggression, nonspecific ST-T changes inferolaterally. IMPRESSION: Acute coronary syndrome, multiple risk factors. PLAN: For angiography, intervention based on the above. TRANSINT:[id number] Voice Confirmation ID: [id number] DOCUMENT ID: [id number] LALIT MARTINEZ MD at 0851 CC: [id number] DICTATION DATE: 01/21/20 0848 MANAGER READING: 01/21/20 1147 ADM IN [facility] [address] [place] [address]
--- NOTE | 2020-01-22 08:51 | OP ---
PATIENT NAME: ALEXANDER ASHTON MEDICAL RECORD: [id number] :74 LOCATION:D.M2 D.2124 ADMISSION DATE:01/22/20 SURGEON: LALIT MARTINEZ MD DATE OF OPERATION: 01/21/2020 PROCEDURE: Left heart catheterization, selective coronary angiography, right femoral artery approach. CATHETERS: A 5-Vincentian sheath, 5/4 left and right Ruben, 5/4 pig. The procedure was well tolerated. The patient was returned to [place]ord. Sheath removed. ExoSeal device placed. FINDINGS: Left ventriculography in 30-degree ESTRADA view: Severe global hypokinesis, reduced LV function, EF 20%. CORONARY ANATOMY: LEFT MAIN: Left main is free of disease. LAD: Free of disease in the diagonal system. CIRCUMFLEX: Free of disease in the marginal system. RIGHT CORONARY ARTERY: Dominant artery, gives rise to PDA, free of disease. IMPRESSION: Normal coronary anatomy, severe LV dysfunction, nonischemic cardiomyopathy, add BiDil to medical regime. TRANSINT:[id number] Voice Confirmation ID: [id number] DOCUMENT ID: [id number] LALIT MARTINEZ MD at 0851 CC: [id number] DICTATION DATE: 01/21/20 1501 LANDMEN: 01/21/20 1602 ADM IN [facility] [address] [facility]
--- NOTE | 2020-01-22 09:35 | NUR ---
PT WAS ADVISED HIS MORPHINE WAS D/C'D BY NELLIE/ROSITA WITH CARDIOLOGY. PT REQUESTED TO LEAVE AMA. PEGGY WITH DR. CAMPOS NOTIFIED AND OK TO LET PT LEAVE AMA. RISKS OF LEAVING AMA REVIEWED WITH PT AND AMA FORM SIGNED BY PT AND IV DC'D BY ROYCE/JOHN WITH TIP INTACT. TELEMETRY RETURNED TO TOOLROOM ATTENDANT. PT REFUSED TO WAIT ON ANY NEW PRECRIPTIONS AND STATED HE WOULD CONTACT HIS PCP. PT ESCORTED TO ED ENTRANCE TO DISCHARGE.
== END 2020-01-22 09:47 | disposition left against medical advice (07) | DRG 286 ==
LOC: D.ER 17:26 → D.M2 18:44 → OBSVTIME 19:27 → D.M2 01-22 08:49
PROVIDERS: Emergency Medicine; Internal Medicine Interventional Cardiology; ADMIT Family Medicine; ATTEND Family Medicine
PROC: B2151ZZ Fluoroscopy of Left Heart using Low Osmolar Contrast (ICD-10-PCS; 2020-01-21)
PROC: 4A023N7 Measurement of Cardiac Sampling and Pressure, Left Heart, Percutaneous Approach (ICD-10-PCS; 2020-01-21)
PROC: B2111ZZ Fluoroscopy of Multiple Coronary Arteries using Low Osmolar Contrast (ICD-10-PCS; principal; 2020-01-21 14:17)
DX: I13.0 Hypertensive heart and chronic kidney disease with heart failure and stage 1 through stage 4 chronic kidney disease, or unspecified chronic kidney disease (principal); I50.23 Acute on chronic systolic (congestive) heart failure; N17.9 Acute kidney failure, unspecified; I24.9 Acute ischemic heart disease, unspecified; I42.8 Other cardiomyopathies; I25.110 Atherosclerotic heart disease of native coronary artery with unstable angina pectoris; E11.65 Type 2 diabetes mellitus with hyperglycemia; E11.22 Type 2 diabetes mellitus with diabetic chronic kidney disease; D63.1 Anemia in chronic kidney disease; D50.9 Iron deficiency anemia, unspecified; N18.3 Chronic kidney disease, stage 3 (moderate); Z95.0 Presence of cardiac pacemaker; R00.0 Tachycardia, unspecified

== ENCOUNTER 2020-04-22 11:48 | Inpatient (IN) | payer OTHER, MEDICARE ==
[~2020-04-22] VITALS: Ht 182.9 cm; Wt 122.9 kg
--- NOTE | ~2020-04-22 | CN ---
PATIENT NAME:ALEXANDER ASHTON MEDICAL RECORD: [id number] : 74 LOCATION:[facility] D.2118 ADMIT DATE: 04/22/20 ACCOUNT: [id number] CONSULTING PHYSICIAN: LALIT MARTINEZ MD REFERRING PHYSICIAN: NABIL CALVERT MD DATE OF CONSULTATION: 04/23/2020 HISTORY OF PRESENT ILLNESS: A 50-year-old gentleman with a history of a nonischemic cardiomyopathy, admitted with chest pain. Symptoms began 2-3 days prior to admission, really no symptomatology consistent with volume overload. This morning while here in the hospital, had episode of hematemesis. Reports he does have some nausea over the past few days as well. We are asked to see him concerning his cardiovascular status. PAST MEDICAL HISTORY: Includes; 1. History of hypertension. 2. Nonischemic cardiomyopathy as described above. 3. Diabetes mellitus. ALLERGIES: CIPRO, TRAMADOL. MEDICATIONS: Include Flomax 0.4 day, metoprolol 100 mg p.o. b.i.d., Seroquel 200 mg at bedtime, aspirin 325 at bedtime, Lasix 40 every day, Zofran 4 mg p.o. every 6 hours p.r.n., omeprazole 20 mg p.o. every day, NovoLog 70/30 40 units every day and 30 units at bedtime. SOCIAL HISTORY: Nonsmoker, nondrinker. Has been trying to exercise as of the last admission, walking 30 minutes a day. REVIEW OF SYSTEMS: The patient reports easy bruising but reports no swollen glands. The patient reports no fever, no night sweats, no significant weight gain, no significant weight loss. No significant exercise tolerance. The patient reports no dry eyes, no irritation, no vision change. Patient reports no difficulty hearing and no ear pain. Patient reports no frequent nose bleeds or nose and sinus problems. Patient reports on arm pain on exertion. No shortness of breath while lying down. No history of heart murmur. Patient reports no cough, no wheezing or coughing up blood. Patient reports no abdominal pain, no vomiting. Normal appetite. No diarrhea and not vomiting blood. No nausea and no constipation. Patient reports no incontinence. No difficulty urinating. No hematuria. No increased frequency. Patient reports no muscle aches. No weakness, no arthralgias, no back pain. No swelling of the extremities. Patient reports no abnormal mole, no jaundice, no rashes. Reports no loss of consciousness. No weakness and no numbness. No seizures, dizziness, or headaches. The patient reports no depression, no sleep disturbance, feeling safe in a relationship and no alcohol abuse. Patient reports on fatigue. Reports no runny nose or sinus pressure. No itching, no hives, and no frequent sneezing. PHYSICAL EXAMINATION: GENERAL: Pleasant, no acute distress, appears stated age. VITAL SIGNS: Blood pressure 151/99, pulse 76 and regular. HEENT: Normocephalic, atraumatic. NECK: No bruits noted. HEART: Regular. S3 gallop is noted. LUNGS: Good air excursion. CONSULT REPORT [id number] DAISHA,ALEXANDER ABDOMEN: Soft, nontender. EXTREMITIES: Pulses 2+. No edema. IMPRESSION AND PLAN: Nonischemic cardiomyopathy, no evidence of volume overload clinically at this point. He did have hematemesis this morning, this could be referred from GI tract. Agree to cycle enzymes. Continue home cardiac medications. We will follow with you. TRANSINT:[id number] Voice Confirmation ID: [id number] DOCUMENT ID: [id number] LALIT MARTINEZ MD CC: [id number] DICTATION DATE: 04/23/20 1017 CHEMIST ENZYMES: 04/23/20 1445 ADM IN [place] [id number] [place] [id number]
--- NOTE | ~2020-04-22 | EC ---
PATIENT:ALEXANDER ASHTON DATE OF SERVICE: 04/22/20 SEX: M MEDICAL RECORD: [id number] DATE OF : 74 LOCATION:D.M2 D.211 AGE OF PATIENT: 50 ADMISSION DATE: 04/22/20 REFERRING PHYSICIAN: INTERPRETING PHYSICIAN: LALIT MARTINEZ MD ECHOCARDIOGRAM REPORT ECHO CHARGES 4 ECHO COMPLETE Date: 04/23/20 CLINICAL DIAGNOSIS: CARDIOMYOPATHY ECHOCARDIOGRAPHIC MEASUREMENTS (adult normal given) AC root (d.<3.7cm) 3.8 cm LV Septum d (<1.2 cm> 1.5 cm Valve Excursion 1.6 cm LV Septum (systole) 1.7 cm Left Atria (s.<4.0cm> 5.1 cm LVPW d(<1.2cm) 1.6 cm RV (d.<2.3cm) 4.4 cm LVPW (sytole) 1.7 cm LV diastole(<5.6CM) 6.4 cm MV E-F(>70mm/sec) cm LV systole 5.7 cm LVOT Diameter 2.4 cm MV exc.(>10mm) 2.1 cm Est.ejection fraction (50-75%) % DOPPLER: LVIT cm/sec A 67.0 cm/sec E 96.0 cm/sec LA cm/sec RVSP 24 mmHg LVOT 64 cm/sec AOP1/2T m/s Asc. Ao 96 cm/sec RVOT 55 cm/sec RA cm/sec PA 75 cm/sec AV Gradient Peak 3.66 mmHg AV Mean 1.77 mmHg AV Area 3.4 cm MV Gradient Peak 4.37 mmHg MV Mean 1.67 mmHg MV Area cm COMMENTS: Rn Support Services: 2 JEAN PIERRE JARRETT Trucking Supervisor: 3 Dr. Friedman TAPE# PACS Pericardial Effusion N DATE OF SERVICE: Adequate 2D, color flow imaging, spectral Doppler, and M-Mode. LVH is present. LV internal dimension is normal. LV is globally hypokinetic with reduced EF, estimated EF 20% to 25%. Aortic valve is tricuspid. No evidence of stenosis by Doppler interrogation. Left atrium is dilated likewise at 5.1 cm. Mitral valve shows no prolapse. Mild MR. Right-sided chambers are grossly normal. Mild TR. ECHOCARDIOGRAM REPORT [id number] ALEXANDER ASHTON TRANSINT:[id number] Voice Confirmation ID: [id number] DOCUMENT ID: [id number] LALIT MARTINEZ MD CC: [id number] DICTATION DATE: 04/24/20 1038 HAND CARVER: 04/24/20 1519 DIS IN 04/24/20 [place] [id number] [place] [id number]
[2020-04-22 12:26] LABS: BASOPHILS 0 % (0-2); EOSINOPHILS 0 % (0-7); HEMATOCRIT 35.3 % (42.0-54.0); IMMATURE GRANULOCYTES 0.2 % (0-5); LYMPHOCYTES 9.8 % (15-50); MCH 24.2 pg (26.0-34.0); MCHC 31.2 g/dL (31.0-37.0); MCV 77.8 fL (80.0-100.0); MEAN PLATELET VOLUME 10.1 fL (7.4-10.4); MONOCYTES 2.5 % (2-11); NEUTROPHILS 87.5 % (40-80); RBC 4.54 10x6/uL (4.20-6.10); RDW 16.8 % (11.5-14.5); WBC 9.6 10x3/uL (4.8-10.8)
[2020-04-22 12:28] LABS: PLATELET COUNT 238 10x3/uL (130-400)
[2020-04-22 12:36] LABS: CALC OSMOLALITY 290 mosm/kg (275-300); CALCIUM 9.4 mg/dL (8.5-10.1); CARBON DIOXIDE 26.8 mmol/L (21.0-32.0); CHLORIDE - SERUM 103 mmol/L (98-107); CREATININE - SERUM 2.2 mg/dL (0.6-1.3); POTASSIUM - SERUM 4.6 mmol/L (3.5-5.1); SODIUM 138 mmol/L (136-145); UREA NITROGEN 38 mg/dL (7-18); eGFR NON AFRICAN AMERICAN 34 mL/min (90-120)
[2020-04-22 12:37] LABS: GLUCOSE 204 mg/dL (74-106)
[2020-04-22 12:51] LABS: ALBUMIN 3.5 g/dL (3.4-5.0); ALKALINE PHOSPHATASE 101 U/L (30-120); ALT (SGPT) 17 U/L (10-68); BILIRUBIN - TOTAL 0.35 mg/dL (0.2-1.3); CKMB 1.2 U/L (0.0-3.6); CREATINE KINASE 159 UL (21-232); PROTEIN - SERUM 7.5 g/dL (6.4-8.2)
[2020-04-22 12:52] VITALS: BP 131/78
[2020-04-22 12:53] LABS: TROPONIN-I < 0.017 ng/mL (0.000-0.060)
[2020-04-22 13:05] LABS: APTT 25.2 SECONDS (22.8-39.4); INR 1.03 (0.85-1.17); PROTIME 13.4 SECONDS (11.6-15.0)
[2020-04-22 13:37] VITALS: BP 160/81
--- NOTE | 2020-04-22 13:40 | NUR ---
PT SITTING UP IN BED WITH EYES OPEN. NO DISTRESS NOTED.
[2020-04-22 15:44] VITALS: BP 153/83
[2020-04-22 16:18] VITALS: BP 185/113; BMI 36.8
--- NOTE | 2020-04-22 18:43 | NUR ---
1600 ARRIVED TO ROOM 8 VIA WHEELCHAIR
--- NOTE | 2020-04-22 20:00 | NUR ---
INITIAL ROUNDS AND ASSESSMENT COMPLETED. PT RESTING IN BED. ALERT/ORIENTED. NONLABORED RESPIRATIONS. CPOC.
[2020-04-22 22:07] VITALS: BP 164/95
--- NOTE | 2020-04-22 23:00 | NUR ---
ALL BEDTIME MEDS GIVEN + REQUESTED IV PAIN MED FOR CHEST PAIN/DISCOMFORT. FSBS 187, 2UNITS OF HUMALOG GIVEN PER SLIDING SCALE. CPOC.
--- NOTE | 2020-04-23 01:20 | NUR ---
MEDICATED WITH MORPHINE IV FOR CHEST PAIN/DISCOMFORT. CPOC.
[2020-04-23 01:25] LABS: BASOPHILS 0 % (0-2); EOSINOPHILS 0 % (0-7); HEMATOCRIT 35.7 % (42.0-54.0); HEMOGLOBIN 10.9 g/dL (13.5-17.5); IMMATURE GRANULOCYTES 0.2 % (0-5); LYMPHOCYTES 7.3 % (15-50); MCH 23.9 pg (26.0-34.0); MCHC 30.5 g/dL (31.0-37.0); MCV 78.1 fL (80.0-100.0); MEAN PLATELET VOLUME 9.3 fL (7.4-10.4); MONOCYTES 2.8 % (2-11); NEUTROPHILS 89.7 % (40-80); PLATELET COUNT 220 10x3/uL (130-400); RBC 4.57 10x6/uL (4.20-6.10); WBC 10.2 10x3/uL (4.8-10.8)
[2020-04-23 01:41] LABS: ALBUMIN 3.5 g/dL (3.4-5.0); ANION GAP 10.7 mmol/L (8-16); BILIRUBIN - TOTAL 0.29 mg/dL (0.2-1.3); CALCIUM 9.3 mg/dL (8.5-10.1); CREATININE - SERUM 2.2 mg/dL (0.6-1.3); MAGNESIUM - SERUM 2.1 mg/dL (1.8-2.4); POTASSIUM - SERUM 4.7 mmol/L (3.5-5.1); PROTEIN - SERUM 7.4 g/dL (6.4-8.2); TROPONIN-I 0.025 ng/mL (0.000-0.060)
[2020-04-23 02:07] VITALS: BP 134/85
[2020-04-23 05:51] VITALS: BP 140/90
--- NOTE | 2020-04-23 07:00 | NUR ---
RECEIVED REPORT. ASSUMED CARE OF PATIENT. CALL LIGHT WITHIN REACH. BEDSIDE SHIFT REPORT COMPLETE. WHITE BOARD UPDATED. PATIENT WITH DULL PAIN TO CHEST, PATIENT STATES BETTER SINCE RECEIVED MORPHINE. NO ACUTE DISTRESS. AWAITING CARDIOLOGY CONSULT AT THIS TIME.
--- NOTE | 2020-04-23 09:43 | NUR ---
MEDICATED FOR PAIN AT THIS TIME.
[2020-04-23 10:02] VITALS: BP 151/99
[2020-04-23 10:45] VITALS: Ht 182.9 cm; Wt 122.9 kg
--- NOTE | 2020-04-23 11:46 | NUR ---
FSBS 181. NO INSULIN DUE TO NPO STATUS.
--- NOTE | 2020-04-23 13:41 | NUR ---
MEDICATED FOR PAIN AT THIS TIME. NO DISTRESS.
[2020-04-23 14:20] VITALS: BP 158/107
[2020-04-23 16:41] LABS: BILIRUBIN NEGATIVE (NEGATIVE); KETONE NEGATIVE (NEGATIVE); NITRITE NEGATIVE (NEGATIVE); UROBILINOGEN NORMAL mg/dL (< 2)
--- NOTE | 2020-04-23 16:45 | NUR ---
FSBS 189. 6 UNITS HUMALOG ADMINISTERED PER SLIDING SCALE.
[2020-04-23 17:06] VITALS: BP 149/95
--- NOTE | 2020-04-23 18:01 | NUR ---
MEDICATED FOR PAIN AT THIS TIME. NO DISTRESS.
--- NOTE | 2020-04-23 19:55 | NUR ---
INITIAL ROUNDS AND ASSESSMENT COMPLETED. PT RESTING IN BED. NO DISTRESS. CPOC. CALL LIGHT IN REACH.
--- NOTE | 2020-04-23 21:43 | NUR ---
BEDTIME MEDS GIVEN. FSBS 212, SLIDING SCALE INSULIN ADMINISTERED. PT WATCHING TV. CPOC. CALL LIGHT IN REACH.
[2020-04-23 21:52] VITALS: BP 153/92
--- NOTE | 2020-04-24 00:48 | NUR ---
PT RECIEVED IV MORPHINE EARLIER AND IS NOW RESTING WITH EYES CLOSED. SR PER TELEMETRY. CPOC.
[2020-04-24 02:00] VITALS: BP 102/68
--- NOTE | 2020-04-24 02:59 | NUR ---
AWAKE, WATCHING TV. C/O GENERALIZED DISCOMFORT. REQUESTED MORHPHINE 4MG SIVP GIVEN. CPOC.
[2020-04-24 06:18] LABS: BASOPHILS 0 % (0-2); EOSINOPHILS 0 % (0-7); HEMATOCRIT 35.9 % (42.0-54.0); IMMATURE GRANULOCYTES 0.3 % (0-5); LYMPHOCYTES 12.9 % (15-50); MCH 23.9 pg (26.0-34.0); MCHC 30.6 g/dL (31.0-37.0); MEAN PLATELET VOLUME 10.4 fL (7.4-10.4); MONOCYTES 6.1 % (2-11); NEUTROPHILS 80.7 % (40-80); PLATELET COUNT 250 10x3/uL (130-400); RDW 16.7 % (11.5-14.5); WBC 8.7 10x3/uL (4.8-10.8)
[2020-04-24 06:19] VITALS: BP 130/68
[2020-04-24 06:46] LABS: ALBUMIN 3.2 g/dL (3.4-5.0); ANION GAP 11.5 mmol/L (8-16); BILIRUBIN - TOTAL 0.24 mg/dL (0.2-1.3); CALCIUM 9.1 mg/dL (8.5-10.1); CARBON DIOXIDE 28.3 mmol/L (21.0-32.0); CREATININE - SERUM 2.5 mg/dL (0.6-1.3); MAGNESIUM - SERUM 2.2 mg/dL (1.8-2.4); POTASSIUM - SERUM 4.8 mmol/L (3.5-5.1)
[2020-04-24 08:12] VITALS: BP 117/80
--- NOTE | 2020-04-24 09:36 | NUR ---
RT AC IV LEAKING. D/C IV WITH CATHETER TIP INTACT. NEW 20G IV STARTED TO LT AC X1 STICK.
--- NOTE | 2020-04-24 10:56 | NUR ---
4MGE OF MORPHINE GIVEN FOR PAIN LEVEL OF 7/10. PT DENIES ANY OTHER NEEDS.
--- NOTE | 2020-04-24 11:22 | MORECARE ---
CASE MANAGEMENT DISCHARGE SUMMARY PATIENT: ALEXANDER ASHTON UNIT: [id number] ADM DATE: 04/22/20 AGE: 50 : 74 SEX: M ROOM/BED: D.1081 AUTHOR: NAHEEDDOC PHYSICIAN: REFERRING PHYSICIAN: NABIL CALVERT MD DATE OF SERVICE: 04/24/20 Discharge Plan Patient Name: ALEXANDER ASHTON Facility: [facility]:[place] : 1970 Planned Disposition: Home Anticipated Discharge Date: 04/24/20 Discharge Date: Expected LOS: 2 Initial Reviewer: RUMA Initial Review Date: 04/22/2020 Generated: 04/24/20 12:22 pm Comments DCP- Discharge Planning Updated by [email or web address]: Fuentes Davenport on 04/24/20 10:[address] Patient Name: ALEXANDER ASHTON Admission Status: ER Accout number: [id number] Admission Date: 04-22-2020 : 1970 Admission Diagnosis: Attending: ROXANNA Current LOS: 2 Anticipated DC Date: 04-24-2020 Planned Disposition: Home Primary Insurance: [email or web address] PPO Discharge Planning Comments: [id number]| CM met with patient to complete initial dc planning assessment. CM educated patient and spouse on the CM role and verbal consent to complete assessment. Verified patient's address, phone number, and emergency contact phone numbers. Patient lives at home with his spouse Rose Ashton, . At discharge patient plans to return home and feels this is a safe discharge. CM discussed availability of home health, rehab services, and medical equipment. HH, SNF, IPR, and DME declined. No other DC needs identified at this time. Transportation provider at discharge will be with his spouse, Rose. CM will continue to follow and will assist as needed with dc plans/needs. Police Commanding Officer: Fuentes Davenport DCPIA - Discharge Planning Initial Assessment Updated by [email or web address]: Fuentes Davenport on 04/24/20 11:21 am * Is the patient Alert and Oriented? No * How many steps to enter\\exit or inside your home? 0/0 * PCP Dr. Kostas Castro, [facility] * Pharmacy stated "[facility] any of them" * Preadmission Environment Home with Family * ADLs Independent * Equipment None * Other Equipment None * List name and contact numbers for known caregivers / representatives who currently or will assist patient after discharge: Rose Ashton - [phone] * Verbal permission to speak to the caregivers and representatives has been obtained from the patient. Yes * Community resources currently utilized None * Additional services required to return to the preadmission environment? No * Can the patient safely return to the preadmission environment? Yes * Has this patient been hospitalized within the prior 30 days at any hospital? No Patient Name: ALEXANDER ASHTON Page 13714 at 1122 All edits/amendments must be made on the electronic document DICTATION DATE: 04/24/201121 MED SURG NURSE: PARKER 04/24/201121 RPT#: [id number] DC DATE: STATUS: ADM IN [facility] [address] [place] [address] END OF REPORT
--- NOTE | 2020-04-24 12:15 | NUR ---
PT LEFT UNIT VIA WHEELCHAIR, WITH ALL BELONGINGS. NAD NOTED.
--- NOTE | 2020-04-25 12:31 | MORECARE ---
CASE MANAGEMENT DISCHARGE SUMMARY PATIENT: ALEXANDER ASHTON UNIT: [id number] ADM DATE: 04/22/20 AGE: 50 : 74 SEX: M ROOM/BED: D.9700 AUTHOR: NAHEEDDOC PHYSICIAN: REFERRING PHYSICIAN: NABIL CALVERT MD DATE OF SERVICE: 04/25/20 Discharge Plan Patient Name: ALEXANDER ASHTON Facility: [facility]:[place] : 1970 Planned Disposition: Home Anticipated Discharge Date: 04/24/20 Discharge Date: 04/24/2020 Expected LOS: 2 Initial Reviewer: RUMA Initial Review Date: 04/22/2020 Generated: 04/25/20 1:30 pm DCP- Discharge Planning Updated by [email or web address]: Fuentes Davenport on 04/24/20 10:[address] Patient Name: ALEXANDER ASHTON Admission Status: ER Accout number: [id number] Admission Date: 04-22-2020 : 1970 Admission Diagnosis: Attending: ROXANNA Current LOS: 2 Anticipated DC Date: 04-24-2020 Planned Disposition: Home Primary Insurance: [employer] PPO Discharge Planning Comments: [id number]| CM met with patient to complete initial dc planning assessment. CM educated patient and spouse on the CM role and verbal consent to complete assessment. Verified patient's address, phone number, and emergency contact phone numbers. Patient lives at home with his spouse Rose Ashton, . At discharge patient plans to return home and feels this is a safe discharge. CM discussed availability of home health, rehab services, and medical equipment. HH, SNF, IPR, and DME declined. No other DC needs identified at this time. Transportation provider at discharge will be with his spouse, Rose. CM will continue to follow and will assist as needed with dc plans/needs. Headwaiter/Headwaitress: Fuentes Davenport DCPIA - Discharge Planning Initial Assessment Updated by [email or web address]: Fuentes Davenport on 04/24/20 11:21 am * Is the patient Alert and Oriented? No * How many steps to enter\\exit or inside your home? 0/0 * [facility] K[facility] * Pharmacy stated "[facility] them" * Preadmission Environment Home with Family * ADLs Independent * Equipment None * Other Equipment None * List name and contact numbers for known caregivers / representatives who currently or will assist patient after discharge: Rose Ashton - [phone] * Verbal permission to speak to the caregivers and representatives has been obtained from the patient. Yes * Community resources currently utilized None * Additional services required to return to the preadmission environment? No * Can the patient safely return to the preadmission environment? Yes * Has this patient been hospitalized within the prior 30 days at any hospital? No Coverage Notice Reviewer: [email or web address] Jey Davenport Notice Issued Date-Time: 04/24/2020 11:25 Notice Type: IM Discharge Notice Notice Delivered To: Patient Relationship to Patient: Information Clerk Cashier Name: Delivery Method: HAND - Hand Delivered Carolann Days: Prior Verbal Notification: Recipient Understood Notice: Yes Recipient Signature: Yes Med Rec Note Co-signed by Attending: Coverage Notice Comment: IMM explained, understood, signed, and placed on chart. Copy given to patient. Last DP export: 04/24/20 10:23 a Patient Name: ALEXANDER ASHTON Page [phone] at 1231 All edits/amendments must be made on the electronic document DICTATION DATE: 04/25/20 1230 NETWORK/TELECOM ENGINEER: PARKER 04/25/20 1230 RPT#: [id number] DC DATE:04/24/20 STATUS: DIS IN [facility] [address] [place] [address] END OF REPORT
--- NOTE | 2020-04-25 12:40 | MORECARE ---
CASE MANAGEMENT DISCHARGE SUMMARY PATIENT: ALEXANDER ASHTON UNIT: [id number] ADM DATE: 04/22/20 AGE: 50 : 74 SEX: M ROOM/BED: D.2110 AUTHOR: NAHEEDDOC PHYSICIAN: REFERRING PHYSICIAN: NABIL CALVERT MD DATE OF SERVICE: 04/25/20 Discharge Plan Patient Name: ALEXANDER ASHTON Facility: [facility]:[place] : 1970 Planned Disposition: Home Anticipated Discharge Date: 04/24/20 Discharge Date: 04/24/2020 Expected LOS: 2 Initial Reviewer: RUMA Initial Review Date: 04/22/2020 Generated: 04/25/20 1:39 pm DCP- Discharge Planning Updated by [email or web address]: Fuentes Davenport on 04/24/20 10:[address] Patient Name: ALEXANDER ASHTON Admission Status: ER Accout number: [id number] Admission Date: 04-22-2020 : 1970 Admission Diagnosis: Attending: ROXANNA Current LOS: 2 Anticipated DC Date: 04-24-2020 Planned Disposition: Home Primary Insurance: [employer] PPO Discharge Planning Comments: [id number]| CM met with patient to complete initial dc planning assessment. CM educated patient and spouse on the CM role and verbal consent to complete assessment. Verified patient's address, phone number, and emergency contact phone numbers. Patient lives at home with his spouse Rose Ashton, . At discharge patient plans to return home and feels this is a safe discharge. CM discussed availability of home health, rehab services, and medical equipment. HH, SNF, IPR, and DME declined. No other DC needs identified at this time. Transportation provider at discharge will be with his spouse, Rose. CM will continue to follow and will assist as needed with dc plans/needs. Bean Dumper: Fuentes Davenport DCPIA - Discharge Planning Initial Assessment Updated by [email or web address]: Fuentes Davenport on 04/24/20 11:21 am * Is the patient Alert and Oriented? No * How many steps to enter\\exit or inside your home? 0/0 * PCP Dr. Kostas Castro, [facility] * Pharmacy stated "[facility]" * Preadmission Environment Home with Family * ADLs Independent * Equipment None * Other Equipment None * List name and contact numbers for known caregivers / representatives who currently or will assist patient after discharge: Rose Ashton - [phone] * Verbal permission to speak to the caregivers and representatives has been obtained from the patient. Yes * Community resources currently utilized None * Additional services required to return to the preadmission environment? No * Can the patient safely return to the preadmission environment? Yes * Has this patient been hospitalized within the prior 30 days at any hospital? No Coverage Notice Reviewer: [email or web address] Jey Davenport Notice Issued Date-Time: 04/24/2020 11:25 Notice Type: IM Discharge Notice Notice Delivered To: Patient Relationship to Patient: Developmental Psychologist Name: Delivery Method: HAND - Hand Delivered Carolann Days: Prior Verbal Notification: Recipient Understood Notice: Yes Recipient Signature: Yes Med Rec Note Co-signed by Attending: Coverage Notice Comment: IMM explained, understood, signed, and placed on chart. Copy given to patient. Last DP export: 04/25/20 11:31 a Patient Name: ALEXANDER ASHTON Page [phone] at 1240 All edits/amendments must be made on the electronic document DICTATION DATE: 04/25/20 1239 VERTICA ARCHITECT: PARKER 04/25/20 1239 RPT#: [id number] DC DATE:04/24/20 STATUS: DIS IN [facility] [address] [place] [address] END OF REPORT
== END 2020-04-24 12:34 | disposition home or self-care (01) | DRG 302 ==
LOC: D.ER 11:48 → D.M2 13:57 → D.ER 15:50 → D.M2 04-24 12:34
PROVIDERS: Family Medicine; ADMIT Family Medicine; ATTEND Family Medicine
DX: I25.110 Atherosclerotic heart disease of native coronary artery with unstable angina pectoris (principal); I50.23 Acute on chronic systolic (congestive) heart failure; I13.0 Hypertensive heart and chronic kidney disease with heart failure and stage 1 through stage 4 chronic kidney disease, or unspecified chronic kidney disease; K92.0 Hematemesis; I42.9 Cardiomyopathy, unspecified; D50.9 Iron deficiency anemia, unspecified; E11.65 Type 2 diabetes mellitus with hyperglycemia; E11.22 Type 2 diabetes mellitus with diabetic chronic kidney disease; N18.9 Chronic kidney disease, unspecified; G47.33 Obstructive sleep apnea (adult) (pediatric); Z95.0 Presence of cardiac pacemaker

== ENCOUNTER 2020-05-28 16:20 | Observation (INO) | payer OTHER, MEDICAID ==
[~2020-05-28] VITALS: Ht 182.9 cm; Wt 123.2 kg
[2020-05-28 16:30] VITALS: Ht 182.9 cm; Wt 123.2 kg
[2020-05-28 17:15] LABS: BASOPHILS 0.1 % (0-2); EOSINOPHILS 0.7 % (0-7); HEMATOCRIT 38.8 % (42.0-54.0); HEMOGLOBIN 11.8 g/dL (13.5-17.5); IMMATURE GRANULOCYTES 0.5 % (0-5); LYMPHOCYTES 24.4 % (15-50); MCH 23.7 pg (26.0-34.0); MCHC 30.4 g/dL (31.0-37.0); MCV 77.9 fL (80.0-100.0); MEAN PLATELET VOLUME 10.7 fL (7.4-10.4); MONOCYTES 8.1 % (2-11); NEUTROPHILS 66.2 % (40-80); PLATELET COUNT 204 10x3/uL (130-400); RBC 4.98 10x6/uL (4.20-6.10); RDW 15.8 % (11.5-14.5); WBC 9.2 10x3/uL (4.8-10.8)
[2020-05-28 17:26] LABS: APTT 23.9 SECONDS (22.8-39.4); INR 0.94 (0.85-1.17); PROTIME 12.5 SECONDS (11.6-15.0)
[2020-05-28 17:27] LABS: CALC OSMOLALITY 291 mosm/kg (275-300); CALCIUM 9.1 mg/dL (8.5-10.1); CARBON DIOXIDE 31.4 mmol/L (21.0-32.0); CHLORIDE - SERUM 101 mmol/L (98-107); GLUCOSE 243 mg/dL (74-106); POTASSIUM - SERUM 4.3 mmol/L (3.5-5.1); SODIUM 138 mmol/L (136-145); UREA NITROGEN 34 mg/dL (7-18); eGFR NON AFRICAN AMERICAN 38 mL/min (90-120)
[2020-05-28 17:42] LABS: ALBUMIN 3.4 g/dL (3.4-5.0); ALKALINE PHOSPHATASE 116 U/L (30-120); ALT (SGPT) 25 U/L (10-68); BILIRUBIN - TOTAL 0.27 mg/dL (0.2-1.3); CKMB 0.8 U/L (0.0-3.6); CREATINE KINASE 109 UL (21-232); MAGNESIUM - SERUM 2.3 mg/dL (1.8-2.4); PROTEIN - SERUM 7.1 g/dL (6.4-8.2); TROPONIN-I 0.032 ng/mL (0.000-0.060)
[2020-05-28 18:14] VITALS: BP 141/83
[2020-05-28 23:44] LABS: CKMB 0.9 U/L (0.0-3.6); CREATINE KINASE 93 UL (21-232); TROPONIN-I 0.025 ng/mL (0.000-0.060)
--- NOTE | 2020-05-29 09:51 | NUR ---
PT. SIGNED AMA FORM AND LEFT. WHEN ASKED WHY, PT. STATED "I FEEL BETTER."
--- NOTE | 2020-05-29 09:53 | NUR ---
DR. RIVERA NOTIFIED REGARDING PT. LEAVING AMA.
== END 2020-05-29 13:45 | disposition home or self-care (01) ==
LOC: D.ER 16:20 → D.EDHOLD 20:47 → OBSVTIME 20:47 → D.EDHOLD 05-29 13:45
PROVIDERS: Family Medicine; ADMIT Family Medicine; ATTEND Family Medicine
DX: I20.0 Unstable angina (principal); R07.9 Chest pain, unspecified; D50.9 Iron deficiency anemia, unspecified; Z95.810 Presence of automatic (implantable) cardiac defibrillator; I50.20 Unspecified systolic (congestive) heart failure; N17.9 Acute kidney failure, unspecified; I12.9 Hypertensive chronic kidney disease with stage 1 through stage 4 chronic kidney disease, or unspecified chronic kidney disease; N18.9 Chronic kidney disease, unspecified; E11.65 Type 2 diabetes mellitus with hyperglycemia; E11.22 Type 2 diabetes mellitus with diabetic chronic kidney disease; J44.9 Chronic obstructive pulmonary disease, unspecified; E66.9 Obesity, unspecified; Z68.36 Body mass index [BMI] 36.0-36.9, adult; Z79.4 Long term (current) use of insulin; Z53.29 Procedure and treatment not carried out because of patient's decision for other reasons

== ENCOUNTER 2020-12-16 19:56 | Inpatient (IN) | payer OTHER, MEDICAID ==
[~2020-12-16] VITALS: Ht 188 cm; Wt 123.2 kg
[2020-12-16 20:49] LABS: CALC OSMOLALITY 290 mosm/kg (275-300); CALCIUM 9.9 mg/dL (8.5-10.1); CARBON DIOXIDE 26.6 mmol/L (21.0-32.0); CHLORIDE - SERUM 104 mmol/L (98-107); CREATININE - SERUM 1.9 mg/dL (0.6-1.3); GLUCOSE 215 mg/dL (74-106); POTASSIUM - SERUM 5.2 mmol/L (3.5-5.1); SODIUM 141 mmol/L (136-145); UREA NITROGEN 25 mg/dL (7-18); eGFR NON AFRICAN AMERICAN 40 mL/min (90-120)
[2020-12-16 21:05] LABS: ALBUMIN 3.7 g/dL (3.4-5.0); ALKALINE PHOSPHATASE 147 U/L (30-120); ALT (SGPT) 27 U/L (10-68); BILIRUBIN - TOTAL 0.34 mg/dL (0.2-1.3); CKMB 1.1 U/L (0.0-3.6); CREATINE KINASE 160 UL (21-232); PROTEIN - SERUM 7.6 g/dL (6.4-8.2)
[2020-12-16 21:06] LABS: TROPONIN-I 0.017 ng/mL (0.000-0.060)
[2020-12-16 21:07] VITALS: BP 124/86
[2020-12-16 21:31] LABS: HEMATOCRIT 36.7 % (42.0-54.0); HEMOGLOBIN 11.9 g/dL (13.5-17.5); IMMATURE GRANULOCYTES 0.4 % (0-5); LYMPHOCYTE ABS# 1.69 10x3/uL (1.32-3.57); LYMPHOCYTES 32.1 % (15-50); MCH 27.5 pg (26.0-34.0); MCHC 32.4 g/dL (31.0-37.0); MEAN PLATELET VOLUME 10.5 fL (7.4-10.4); MONOCYTES 7.2 % (2-11); NEUTROPHIL ABS# 2.91 10x3/uL (1.78-5.38); NEUTROPHILS 55.3 % (40-80); RBC 4.32 10x6/uL (4.20-6.10); RDW 18.1 % (11.5-14.5); WBC 5.3 10x3/uL (4.8-10.8)
[2020-12-16 21:32] LABS: PLATELET COUNT 161 10x3/uL (130-400)
[2020-12-16 22:00] VITALS: BP 130/75
[2020-12-16 22:02] LABS: INR 1.08 (0.85-1.17)
--- NOTE | 2020-12-16 22:31 | NUR ---
REPORT CALLED TO CLAUDINE ALEMAN WITH VERBAL ACKNOWLEDGEMENT OBTAINED.
--- NOTE | 2020-12-16 22:59 | NUR ---
PT TO ROOM 2114 VIA WHEELCHAIR ACCOMPANIED BY HOSPITAL STAFF.
[2020-12-17 03:13] VITALS: BP 132/85; BMI 34.8
[2020-12-17 03:21] LABS: BASOPHILS 0.4 % (0-2); EOSINOPHILS 3.5 % (0-7); HEMOGLOBIN 10.9 g/dL (13.5-17.5); IMMATURE GRANULOCYTES 0.2 % (0-5); LYMPHOCYTES 34.9 % (15-50); MCH 27.5 pg (26.0-34.0); MCHC 32.1 g/dL (31.0-37.0); MCV 85.9 fL (80.0-100.0); MEAN PLATELET VOLUME 10.2 fL (7.4-10.4); MONOCYTES 5.7 % (2-11); NEUTROPHIL ABS# 3.01 10x3/uL (1.78-5.38); NEUTROPHILS 55.3 % (40-80); PLATELET COUNT 154 10x3/uL (130-400); RBC 3.96 10x6/uL (4.20-6.10); RDW 18.5 % (11.5-14.5); WBC 5.4 10x3/uL (4.8-10.8)
[2020-12-17 03:42] LABS: ALKALINE PHOSPHATASE 120 U/L (30-120); ALT (SGPT) 21 U/L (10-68); BILIRUBIN - TOTAL 0.37 mg/dL (0.2-1.3); CALC OSMOLALITY 292 mosm/kg (275-300); CALCIUM 9.1 mg/dL (8.5-10.1); CARBON DIOXIDE 28.9 mmol/L (21.0-32.0); CHLORIDE - SERUM 105 mmol/L (98-107); CKMB 0.8 U/L (0.0-3.6); CREATINE KINASE 112 UL (21-232); GLUCOSE 249 mg/dL (74-106); POTASSIUM - SERUM 4.6 mmol/L (3.5-5.1); PROTEIN - SERUM 6.6 g/dL (6.4-8.2); SODIUM 140 mmol/L (136-145); UREA NITROGEN 29 mg/dL (7-18)
[2020-12-17 03:45] LABS: BILIRUBIN NEGATIVE (NEGATIVE); KETONE NEGATIVE (NEGATIVE); NITRITE NEGATIVE (NEGATIVE); UROBILINOGEN NORMAL mg/dL (< 2)
[2020-12-17 03:49] LABS: CREATININE - SERUM 2.8 mg/dL (0.6-1.3); TROPONIN-I 0.017 ng/mL (0.000-0.060); eGFR NON AFRICAN AMERICAN 26 mL/min (90-120)
[2020-12-17 04:56] VITALS: BP 114/81
--- NOTE | 2020-12-17 07:00 | NUR ---
RECEIVED REPORT. ASSUMED CARE OF PATIENT. CALL LIGHT WITHIN REACH. RESTING WITH EYES OPEN. WHITE BOARD UPDATED, BEDSIDE SHIFT REPORT COMPLETE. NO DISTRESS. UPDATED PATIENT ON LABS.
[2020-12-17 07:47] VITALS: BP 103/61
--- NOTE | 2020-12-17 10:00 | NUR ---
medicated for pain at this time. no distress.
[2020-12-17 11:18] LABS: CKMB 0.7 U/L (0.0-3.6); CREATINE KINASE 105 UL (21-232); TROPONIN-I < 0.017 ng/mL (0.000-0.060)
[2020-12-17 11:20] VITALS: BP 114/70
--- NOTE | 2020-12-17 11:30 | NUR ---
fsbs 268. 6 units humalog administered per sliding scale. no distress.
--- NOTE | 2020-12-17 11:31 | NUR ---
protonix gtt initiated.
--- NOTE | 2020-12-17 12:46 | NUR ---
CONSENTS SIGNED AND ON THE CHART FOR EGD TOMORROW WITH AT 1000.
[2020-12-17 12:58] VITALS: Ht 188 cm; Wt 123.2 kg
[2020-12-17 15:24] VITALS: BP 111/58
--- NOTE | 2020-12-17 15:27 | NUR ---
HERE AND GAVE VERBAL ORDERS TO BLADDER SCAN, IF PATIENT HAS >250ML, PLACE YEN. PATEINT MADE AWARE OF NEW ORDERS. ALSO GAVE NEW ORDERS TO INCREASE FLUIDS FROM 75ML/HR TO 125ML/HR. FLUIDS INCREASED AT THIS TIME INSTRUCTED. NO DISTRESS. PATIENT TOLERATING FLUIDS WELL.
--- NOTE | 2020-12-17 15:27 | NUR ---
URINE COLLECTED AND SENT TO LAB
--- NOTE | 2020-12-17 15:45 | NUR ---
BLADDER SCAN COMPLETED VERBAL ORDERED BY , BLADDER SCANNER DETECTED NO POST RESIDUAL URINE AFTER HE VOIDED. 0ML REPORTED IN BLADDER.
[2020-12-17 16:00] LABS: CREATININE - URINE 139.1 mg/dL (30-125); PRO/CRE RATIO URINE 0.2 mg/g; PROTEIN - URINE 29.4 mg/dL (0.0-11.9)
--- NOTE | 2020-12-17 16:37 | NUR ---
FSBS 252. 6 UNITS HUMALOG ADMINISTERED PER SLIDING SCALE. NO DISTRESS.
--- NOTE | 2020-12-17 18:23 | NUR ---
MEDICATED FOR PAIN AT THIS TIME. NO DISTRESS.
--- NOTE | 2020-12-17 19:15 | NUR ---
REPORT RECEIVED, PT CARE ASSUMED. PT SITTING UP IN BED, WATCHING TV, AAOX4. DENIES PAIN OR ANY NEEDS AT THIS TIME. BED LOWEST, SRX1, CL WITHIN REACH. CPOC.
[2020-12-17 20:49] LABS: CKMB 1.3 U/L (0.0-3.6); CREATINE KINASE 110 UL (21-232)
[2020-12-17 20:50] LABS: TROPONIN-I < 0.017 ng/mL (0.000-0.060)
[2020-12-17 21:04] VITALS: BP 105/64
[2020-12-18] VITALS (7 sets, daily range): BP systolic 85–145; BP diastolic 56–94
[2020-12-18 05:57] LABS: BASOPHILS 0.9 % (0-2); HEMATOCRIT 33.1 % (42.0-54.0); HEMOGLOBIN 10.8 g/dL (13.5-17.5); IMMATURE GRANULOCYTES 0.2 % (0-5); LYMPHOCYTE ABS# 2.05 10x3/uL (1.32-3.57); LYMPHOCYTES 44.6 % (15-50); MCH 27.8 pg (26.0-34.0); MCHC 32.6 g/dL (31.0-37.0); MCV 85.3 fL (80.0-100.0); MEAN PLATELET VOLUME 10.9 fL (7.4-10.4); NEUTROPHILS 41.3 % (40-80); PLATELET COUNT 143 10x3/uL (130-400); RBC 3.88 10x6/uL (4.20-6.10); RDW 18.5 % (11.5-14.5); WBC 4.6 10x3/uL (4.8-10.8)
[2020-12-18 06:20] LABS: ALBUMIN 2.7 g/dL (3.4-5.0); ANION GAP 13.6 mmol/L (8-16); BILIRUBIN - TOTAL 0.15 mg/dL (0.2-1.3); CALCIUM 8.2 mg/dL (8.5-10.1); CREATININE - SERUM 2.7 mg/dL (0.6-1.3); MAGNESIUM - SERUM 1.9 mg/dL (1.8-2.4); POTASSIUM - SERUM 4.6 mmol/L (3.5-5.1); PROTEIN - SERUM 6.4 g/dL (6.4-8.2)
[2020-12-19 04:00] VITALS: BP 120/82
[2020-12-19 06:06] LABS: BASOPHILS 0.9 % (0-2); EOSINOPHILS 5.7 % (0-7); HEMOGLOBIN 10.7 g/dL (13.5-17.5); LYMPHOCYTE ABS# 1.68 10x3/uL (1.32-3.57); LYMPHOCYTES 38.6 % (15-50); MCH 27.3 pg (26.0-34.0); MCHC 31.5 g/dL (31.0-37.0); MCV 86.7 fL (80.0-100.0); MEAN PLATELET VOLUME 11.3 fL (7.4-10.4); MONOCYTES 6.7 % (2-11); NEUTROPHIL ABS# 2.09 10x3/uL (1.78-5.38); NEUTROPHILS 48.1 % (40-80); PLATELET COUNT 151 10x3/uL (130-400); RBC 3.92 10x6/uL (4.20-6.10); RDW 18.4 % (11.5-14.5); WBC 4.4 10x3/uL (4.8-10.8)
[2020-12-19 06:21] LABS: ALBUMIN 2.7 g/dL (3.4-5.0); ANION GAP 14.5 mmol/L (8-16); BILIRUBIN - TOTAL 0.24 mg/dL (0.2-1.3); CALCIUM 8.2 mg/dL (8.5-10.1); CARBON DIOXIDE 23.3 mmol/L (21.0-32.0); CREATININE - SERUM 2.1 mg/dL (0.6-1.3); MAGNESIUM - SERUM 1.8 mg/dL (1.8-2.4); POTASSIUM - SERUM 4.8 mmol/L (3.5-5.1); PROTEIN - SERUM 6.2 g/dL (6.4-8.2)
--- NOTE | 2020-12-19 07:20 | NUR ---
RECIEVE REPORT. ALERT AND ORIENTED X4. SITTING UP IN BED. DENIES ANY NEEDS. CONTINUE PLAN OF CARE AND SAFETY PRECAUTIONS.
--- NOTE | 2020-12-19 08:00 | CN ---
PATIENT NAME:ALEXANDER ASHTON MEDICAL RECORD: [id number] : 74 LOCATION:D. D.2114 ADMIT DATE: 12/16/20 ACCOUNT: [id number] CONSULTING PHYSICIAN: LALIT MARTINEZ MD REFERRING PHYSICIAN: ASIF MONDRAGON MD DATE OF CONSULTATION: 12/17/2020 HISTORY OF PRESENT ILLNESS: A 50-year-old gentleman admitted with history of nonischemic cardiomyopathy. Last angiography in summer with no obstructive coronary artery disease, EF 20%, status post ICD placement as well. He had intermittent episodes of aikrt-is-djljoug exacerbation, admitted with chest pain that is somewhat atypical. There is a pleuritic component. Again, coronary was normal back in summer of last year. We are asked to see him concerning cardiovascular status. PAST MEDICAL HISTORY: 1. Cardiomyopathy. 2. Hypertension. 3. Hyperlipidemia. 4. Diabetes mellitus. MEDICATIONS: Include: NovoLog 70/30, 40 units daily in the morning and 30 in the evening, omeprazole 20 mg p.o. daily, Lasix 40 mg p.o. daily, aspirin 81 every day, Seroquel 200 at bedtime, metoprolol 100 b.i.d., Flomax 0.4 every day. SOCIAL HISTORY: Nonsmoker, nondrinker. No set exercise program. He is able to take care of his ADLs. ALLERGIES: CIPRO, TRAMADOL. REVIEW OF SYSTEMS: The patient reports easy bruising but reports no swollen glands. The patient reports no fever, no night sweats, no significant weight gain, no significant weight loss. No significant exercise tolerance. The patient reports no dry eyes, no irritation, no vision change. Patient reports no difficulty hearing and no ear pain. Patient reports no frequent nose bleeds or nose and sinus problems. Patient reports on arm pain on exertion. No shortness of breath while lying down. No history of heart murmur. Patient reports no cough, no wheezing or coughing up blood. Patient reports no abdominal pain, no vomiting. Normal appetite. No diarrhea and not vomiting blood. No nausea and no constipation. Patient reports no incontinence. No difficulty urinating. No hematuria. No increased frequency. Patient reports no muscle aches. No weakness, no arthralgias, no back pain. No swelling of the extremities. Patient reports no abnormal mole, no jaundice, no rashes. Reports no loss of consciousness. No weakness and no numbness. No seizures, dizziness, or headaches. The patient reports no depression, no sleep disturbance, feeling safe in a relationship and no alcohol abuse. Patient reports on fatigue. Reports no runny nose or sinus pressure. No itching, no hives, and no frequent sneezing. PHYSICAL EXAMINATION: GENERAL: Pleasant. No acute distress, appears stated age, breathing comfortably. VITAL SIGNS: Blood pressure 103/61. Pulse 96 and regular. HEENT: Normocephalic, atraumatic. NECK: No JVD or bruit. CONSULT REPORT [id number] DAISHA,ALEXANDER HEART: Regular. Questionable S3 gallop. II/ systolic ejection murmur. LUNGS: Good air excursion. ABDOMEN: Soft and nontender. Pulses are preserved, 2+. EXTREMITIES: There is no edema. IMPRESSION: Chest pain, somewhat atypical. Continue serial enzymes normal so far. We will recheck echocardiogram study to assess left ventricular function. Continue myopathic medications. Further recommendation based on clinical course. TRANSINT:[id number] Voice Confirmation ID: [id number] DOCUMENT ID: [id number] LALIT MARTINEZ MD at 0800 CC: [id number] DICTATION DATE: 12/17/20930 TRANSFER AND PUMPHOUSE OPERATOR: 12/17/20 1004 ADM IN [place] [id number] [place] [id number]
--- NOTE | 2020-12-19 08:00 | EC ---
PATIENT:ALEXANDER ASHTON DATE OF SERVICE: 12/16/20 SEX: M MEDICAL RECORD: [id number] DATE OF : 74 LOCATION:D.M2 D.211 AGE OF PATIENT: 50 ADMISSION DATE: 12/16/20 REFERRING PHYSICIAN: INTERPRETING PHYSICIAN: LALIT MARTINEZ MD ECHOCARDIOGRAM REPORT ECHO CHARGES 4 ECHO COMPLETE Date: 12/17/20 CLINICAL DIAGNOSIS: CARDIOMYOPATHY ECHOCARDIOGRAPHIC MEASUREMENTS (adult normal given) AC root (d.<3.7cm) 3.4 cm LV Septum d (<1.2 cm> 1.4 cm Valve Excursion 2.2 cm LV Septum (systole) 1.6 cm Left Atria (s.<4.0cm> 4.6 cm LVPW d(<1.2cm) 1.2 cm RV (d.<2.3cm) 2.9 cm LVPW (sytole) 1.8 cm LV diastole(<5.6CM) 6.4 cm MV E-F(>70mm/sec) cm LV systole 5.1 cm LVOT Diameter 2.2 cm MV exc.(>10mm) cm Est.ejection fraction (50-75%) % DOPPLER: LVIT cm/sec A 46.0 cm/sec E 117 cm/sec LA cm/sec RVSP 44.2 mmHg LVOT 51.0 cm/sec AOP1/2T m/s Asc. Ao 77.0 cm/sec RVOT 49.0 cm/sec RA cm/sec PA 60.0 cm/sec AV Gradient Peak 2.4 mmHg AV Mean 1.4 mmHg AV Area 2.5 cm MV Gradient Peak 6.7 mmHg MV Mean 2.5 mmHg MV Area cm COMMENTS: Sas Programmer Remote: 1 SANTOS BASSOE Civil Engineering Project Manager: 3 Dr. Friedman TAPE# PACS Pericardial Effusion N DATE OF SERVICE: FINDINGS: LVH is present. LV internal dimension is dilated. LV is globally hypokinetic with reduced EF, estimated EF 20% to 25%. Aortic valve is tricuspid. No evidence of stenosis by Doppler interrogation. Left atrium is dilated at 4.6 cm. Mitral valve shows no prolapse. Mild MR. Right side is grossly normal. Mild TR. TRANSINT:[id number] Voice Confirmation ID: [id number] DOCUMENT ID: [id number] ECHOCARDIOGRAM REPORT [id number] ALEXANDER ASHTON LALIT MARTINEZ MD at 0800 CC: [id number] DICTATION DATE: 12/18/20953 TEACHER PUBLIC HEALTH: 12/18/202010 ADM IN [facility] [address] [place] [id number]
[2020-12-19 08:25] VITALS: BP 141/91
[2020-12-19 12:46] VITALS: BP 139/63
[2020-12-19 17:01] VITALS: BP 127/74
--- NOTE | 2020-12-19 17:02 | MORECARE ---
CASE MANAGEMENT DISCHARGE SUMMARY PATIENT: AELXANDER ASHTON UNIT: [id number] ADM DATE: 12/16/20 AGE: 50 : 74 SEX: M ROOM/BED: D.2114 AUTHOR: GRECIA FARFAN PHYSICIAN: REFERRING PHYSICIAN: ASIF MONDRAGON MD DATE OF SERVICE: 12/19/20 Case Management Discharge Planning Summary COMMENTS ENTERED DATE: 12/19/20 15:05 CT COMMENT TYPE: Discharge Planning REVIEWER: Jackie Pickett CM TO PATIENT ROOM TO PERFORM ASSESSMENT FOR DISCHARGE PLANNING. NAME AND BIRTHDAY VERIFED FOR CORRECT PATIENT. PT PROVIDED A DIFFERENT ADDRESS OF [address] [place] [address]. PHONE NUMBER IS CORRECT [phone]. PATIENT STATES THAT PRIOR TO HOSPITALIZATION HE WAS INDEPENDENT AT HOME. PATIENT FEELS AT THIS TIME HE IS ABLE TO CARE FOR HIMSELF AND DOES NOT NEED ASSISTANCE WHEN DISCHARGED. PATIENT STATES THAT HIS (GELA ASHTON, ) LIVES AT THE SAME ADDRESS PATIENT AND IS CAPABLE OF HELPING THE PATIENT IF NEEDED. PT STATES HE HAS TRANSPORTATION HOME WHEN DISCHARGED, PROVIDED BY HIS FRIEND. PATIENT ALSO STATES HAS TRANSPORTATION TO AND FROM DOCTOR APPOINTMENTS, WELL FUNDS FOR MEDICATIONS. PATIENTS STATES THAT HIS HOME ENVIROMENT IS SAFE. NO DISCHARGE NEEDS IDENTIFIED AT THIS TIME. MIP REVIEW SUMMARY ANTICIPATED D/C DATE: 12/20/2020 EXPECTED LOS : 4 CASE STATUS: DCP Initiated INITIAL REVIEW: 12/16/2020 INITIAL REVIEWER: Jakcie Pickett FINAL DISCHARGE DISPOSITION: : FINAL REVIEWER: FINAL REVIEW DATE: MIP Focus Questions & Answers DCP Screen QUESTION: ANSWER High Risk Factors: : None Walking limitation: Patient stated self rated walking limitation present? : No Age: : 47 - 66 Prior living environment: : Lives with others Disability ranking: : Grade 1: No significant disability DCP Evaluation QUESTION: ANSWER Patient and/or caregiver agree upon recommended discharge plan? : Yes Family / Caregiver's ability to cope with chronic illness: : a. Adequate (ability to meet patient's medical needs, ensures patient attends medical appts.) Patient's current cognitive status: : *Oriented to person, place, situation, time and present Patient's ability to cope with chronic illness : d. No chronic illness Does the patient have the ability to pay for or attain post discharge needs / services? : Yes Functional screen assessment: : No issues identified Physical Status: : Independent with ADL's Equipment needed for post hospitalization: : None Is there a likelihood that the patient will require additional services to return to the preadmission environment? : No Living Arrangements: : Home with Spouse/Significant Other Results of this evaluation have been discussed with: : Patient Patient with capacity for self-care or can be cared for in same environment as prior to hospitalization? : Yes Baseline cognitive status: : *Oriented to person, place, situation, time and present Physical environment modification needed / anticipated for discharge: : No Medication Management: : Patient states they do have transportation to order picker medications Medication Management: : Patient states can afford medications Planned post hospital services available for patient? : N/A Pharmacy name(s): : [facility] Planned post hospital services covered by insurance plan? : N/A Does Patient have transportation to get home and to follow-up medical appointments when discharged from the hospital? : Yes Would patient like to participate in any Care Coordination programs (if applicable): : Not applicable Does the patient have electricity at home? : Yes Does the patient have running water in their house? : Yes Equipment in use: : None Mental health screen: : No mental health history Abuse/Neglect: : None Resources / Services in place: : None Problems identified by the patient regarding discharge: : NONE DCP Re-evaluation QUESTION: ANSWER Would patient like to participate in any Care Coordination programs (if applicable): : Not applicable PATIENT: ALEXANDER ASHTON ENCOUNTER: [id number] MEDICAL RECORD#: [id number] ADMISSION DATE: 12/16/2020 DISCHARGE DATE: ATTENDING MD: GIANCARLO MONDRAGON : AGE: 50 MARITAL STATUS: M DC PLAN ID: [id number] FACILITY: [facility] PRINTED ON: 12/19/20 17:02 CT All edits/amendments must be made on the electronic document DICTATION DATE: 12/19/201701 INDUCTION COORDINATION ENGINEER: PARKER 12/19/201701 RPT#: [id number] DC DATE: STATUS: ADM IN [facility] [address] [place] [address] END OF REPORT
[2020-12-19 20:00] VITALS: BP 152/92
[2020-12-19 22:11] LABS: CKMB 0.9 U/L (0.0-3.6); CREATINE KINASE 91 UL (21-232)
[2020-12-19 22:12] LABS: TROPONIN-I < 0.017 ng/mL (0.000-0.060)
--- NOTE | 2020-12-19 22:30 | NUR ---
PT STATED HE WAS HAVING CP 03/21. NORCO GIVEN AT 2023. BP 152/92 P 94. EKG SR WITH POSSIBLE ANTERIOR INFARCT. HEART ENZYMES WNL. NOTIFIED JOYCELYN AYOUB APN AND DR. GAMEZ. PT STATED HE WAS LEAVING AMA. DR. GAMEZ NOTIFIED ABOUT PT LEAVING AMA. NO NEW ORDERS RECEIVED AT THIS TIME.
[2020-12-19 22:35] VITALS: BP 146/85
--- NOTE | 2020-12-19 23:07 | MORECARE ---
CASE MANAGEMENT DISCHARGE SUMMARY PATIENT: ALEXANDER ASHTON UNIT: [id number] ADM DATE: 12/16/20 AGE: 50 : 74 SEX: M ROOM/BED: D.2114 AUTHOR: GRECIA FARFAN PHYSICIAN: REFERRING PHYSICIAN: ASIF MONDRAGON MD DATE OF SERVICE: 12/19/20 Case Management Discharge Planning Summary COMMENTS ENTERED DATE: 12/19/20 15:05 CT COMMENT TYPE: Discharge Planning REVIEWER: Jackie Pickett CM TO PATIENT ROOM TO PERFORM ASSESSMENT FOR DISCHARGE PLANNING. NAME AND BIRTHDAY VERIFED FOR CORRECT PATIENT. PT PROVIDED A DIFFERENT ADDRESS OF [address] [place] [address]. PHONE NUMBER IS CORRECT [phone]. PATIENT STATES THAT PRIOR TO HOSPITALIZATION HE WAS INDEPENDENT AT HOME. PATIENT FEELS AT THIS TIME HE IS ABLE TO CARE FOR HIMSELF AND DOES NOT NEED ASSISTANCE WHEN DISCHARGED. PATIENT STATES THAT HIS (GELA ASHTON, ) LIVES AT THE SAME ADDRESS PATIENT AND IS CAPABLE OF HELPING THE PATIENT IF NEEDED. PT STATES HE HAS TRANSPORTATION HOME WHEN DISCHARGED, PROVIDED BY HIS FRIEND. PATIENT ALSO STATES HAS TRANSPORTATION TO AND FROM DOCTOR APPOINTMENTS, WELL FUNDS FOR MEDICATIONS. PATIENTS STATES THAT HIS HOME ENVIROMENT IS SAFE. NO DISCHARGE NEEDS IDENTIFIED AT THIS TIME. VAP REVIEW SUMMARY ANTICIPATED D/C DATE: 12/20/2020 EXPECTED LOS : 4 CASE STATUS: DCP Initiated INITIAL REVIEW: 12/16/2020 INITIAL REVIEWER: Jackie Pickett FINAL DISCHARGE DISPOSITION: : FINAL REVIEWER: FINAL REVIEW DATE: VAP Focus Questions & Answers DCP Screen QUESTION: ANSWER High Risk Factors: : None Walking limitation: Patient stated self rated walking limitation present? : No Age: : 45 - 66 Prior living environment: : Lives with others Disability ranking: : Grade 1: No significant disability DCP Evaluation QUESTION: ANSWER Patient and/or caregiver agree upon recommended discharge plan? : Yes Family / Caregiver's ability to cope with chronic illness: : a. Adequate (ability to meet patient's medical needs, ensures patient attends medical appts.) Patient's current cognitive status: : *Oriented to person, place, situation, time and present Patient's ability to cope with chronic illness : d. No chronic illness Does the patient have the ability to pay for or attain post discharge needs / services? : Yes Functional screen assessment: : No issues identified Physical Status: : Independent with ADL's Equipment needed for post hospitalization: : None Is there a likelihood that the patient will require additional services to return to the preadmission environment? : No Living Arrangements: : Home with Spouse/Significant Other Results of this evaluation have been discussed with: : Patient Patient with capacity for self-care or can be cared for in same environment as prior to hospitalization? : Yes Baseline cognitive status: : *Oriented to person, place, situation, time and present Physical environment modification needed / anticipated for discharge: : No Medication Management: : Patient states they do have transportation to citrus picker medications Medication Management: : Patient states can afford medications Planned post hospital services available for patient? : N/A Pharmacy name(s): : [facility] Planned post hospital services covered by insurance plan? : N/A Does Patient have transportation to get home and to follow-up medical appointments when discharged from the hospital? : Yes Would patient like to participate in any Care Coordination programs (if applicable): : Not applicable Does the patient have electricity at home? : Yes Does the patient have running water in their house? : Yes Equipment in use: : None Mental health screen: : No mental health history Abuse/Neglect: : None Resources / Services in place: : None Problems identified by the patient regarding discharge: : NONE DCP Re-evaluation QUESTION: ANSWER Would patient like to participate in any Care Coordination programs (if applicable): : Not applicable PATIENT: ALEXANDER ASHTON ENCOUNTER: [id number] MEDICAL RECORD#: [id number] ADMISSION DATE: 12/16/2020 DISCHARGE DATE: 12/19/2020 ATTENDING MD: GIANCARLO MONDRAGON : AGE: 50 MARITAL STATUS: M DC PLAN ID: [id number] FACILITY: [facility] PRINTED ON: 12/19/20 23:07 CT All edits/amendments must be made on the electronic document DICTATION DATE: 12/19/202306 FILM RECORDIST: PARKER 12/19/202306 RPT#: [id number] DC DATE:12/19/20 STATUS: DIS IN [facility] [address] [place] [address] END OF REPORT
--- NOTE | 2020-12-19 23:10 | NUR ---
PT LEFT AMA, REFUSED TO SIGN RELEASE FORM. JOCE MCCULLOUGH RN AND THIS RN SIGNED RELEASE FORM WITNESSES.
--- NOTE | 2020-12-25 17:15 | MORECARE ---
CASE MANAGEMENT DISCHARGE SUMMARY PATIENT: ALEXANDER ASHTON UNIT: [id number] ADM DATE: 12/16/20 AGE: 50 : 74 SEX: M ROOM/BED: D.2114 AUTHOR: GRECIA FARFAN PHYSICIAN: REFERRING PHYSICIAN: ASIF MONDRAGON MD DATE OF SERVICE: 12/25/20 Case Management Discharge Planning Summary COMMENTS ENTERED DATE: 12/19/20 15:05 CT COMMENT TYPE: Discharge Planning REVIEWER: Jackie Pickett CM TO PATIENT ROOM TO PERFORM ASSESSMENT FOR DISCHARGE PLANNING. NAME AND BIRTHDAY VERIFED FOR CORRECT PATIENT. PT PROVIDED A DIFFERENT ADDRESS OF [address], [place]. PHONE NUMBER IS CORRECT [phone]. PATIENT STATES THAT PRIOR TO HOSPITALIZATION HE WAS INDEPENDENT AT HOME. PATIENT FEELS AT THIS TIME HE IS ABLE TO CARE FOR HIMSELF AND DOES NOT NEED ASSISTANCE WHEN DISCHARGED. PATIENT STATES THAT HIS (GELA ASHTON, ) LIVES AT THE SAME ADDRESS PATIENT AND IS CAPABLE OF HELPING THE PATIENT IF NEEDED. PT STATES HE HAS TRANSPORTATION HOME WHEN DISCHARGED, PROVIDED BY HIS FRIEND. PATIENT ALSO STATES HAS TRANSPORTATION TO AND FROM DOCTOR APPOINTMENTS, WELL FUNDS FOR MEDICATIONS. PATIENTS STATES THAT HIS HOME ENVIROMENT IS SAFE. NO DISCHARGE NEEDS IDENTIFIED AT THIS TIME. CTP REVIEW SUMMARY ANTICIPATED D/C DATE: 12/20/2020 EXPECTED LOS : 4 CASE STATUS: DCP Initiated INITIAL REVIEW: 12/16/2020 INITIAL REVIEWER: Jackie Pickett FINAL DISCHARGE DISPOSITION: : FINAL REVIEWER: FINAL REVIEW DATE: CTP Focus Questions & Answers DCP Screen QUESTION: ANSWER High Risk Factors: : None Walking limitation: Patient stated self rated walking limitation present? : No Age: : 45 - 66 Prior living environment: : Lives with others Disability ranking: : Grade 1: No significant disability DCP Evaluation QUESTION: ANSWER Patient's ability to cope with chronic illness : d. No chronic illness Patient's current cognitive status: : *Oriented to person, place, situation, time and present Family / Caregiver's ability to cope with chronic illness: : a. Adequate (ability to meet patient's medical needs, ensures patient attends medical appts.) Patient and/or caregiver agree upon recommended discharge plan? : Yes Physical Status: : Independent with ADL's Functional screen assessment: : No issues identified Does the patient have the ability to pay for or attain post discharge needs / services? : Yes Living Arrangements: : Home with Spouse/Significant Other Is there a likelihood that the patient will require additional services to return to the preadmission environment? : No Equipment needed for post hospitalization: : None Baseline cognitive status: : *Oriented to person, place, situation, time and present Patient with capacity for self-care or can be cared for in same environment as prior to hospitalization? : Yes Results of this evaluation have been discussed with: : Patient Physical environment modification needed / anticipated for discharge: : No Medication Management: : Patient states can afford medications Medication Management: : Patient states they do have transportation to knot picker cloth medications Pharmacy name(s): : [facility] Planned post hospital services available for patient? : N/A Does Patient have transportation to get home and to follow-up medical appointments when discharged from the hospital? : Yes Planned post hospital services covered by insurance plan? : N/A Would patient like to participate in any Care Coordination programs (if applicable): : Not applicable Does the patient have electricity at home? : Yes Does the patient have running water in their house? : Yes Equipment in use: : None Mental health screen: : No mental health history Abuse/Neglect: : None Resources / Services in place: : None Problems identified by the patient regarding discharge: : NONE DCP Re-evaluation QUESTION: ANSWER Would patient like to participate in any Care Coordination programs (if applicable): : Not applicable PATIENT: ALEXANDER ASHTON ENCOUNTER: [id number] MEDICAL RECORD#: [id number] ADMISSION DATE: 12/16/2020 DISCHARGE DATE: 12/19/2020 ATTENDING MD: GIANCARLO MONDRAGON : AGE: 50 MARITAL STATUS: M DC PLAN ID: [id number] FACILITY: [facility] PRINTED ON: 12/25/20 17:15 CT All edits/amendments must be made on the electronic document DICTATION DATE: 12/25/201714 FORENSIC TECHNICIAN: PARKER 12/25/201714 RPT#: [id number] DC DATE:12/19/20 STATUS: DIS IN [facility] [address] [place] [address] END OF REPORT
== END 2020-12-19 23:06 | disposition left against medical advice (07) | DRG 302 ==
LOC: D.ER 19:56 → D.M2 22:21
PROVIDERS: Internal Medicine Gastroenterology; Internal Medicine Nephrology; Student in an Organized Health Care Education/Training Program; ADMIT Family Medicine; ATTEND Family Medicine
PROC: 0DJ08ZZ Inspection of Upper Intestinal Tract, Via Natural or Artificial Opening Endoscopic (ICD-10-PCS; principal; 2020-12-18 10:00)
DX: I25.110 Atherosclerotic heart disease of native coronary artery with unstable angina pectoris (principal); K25.4 Chronic or unspecified gastric ulcer with hemorrhage; K21.01 Gastro-esophageal reflux disease with esophagitis, with bleeding; I13.0 Hypertensive heart and chronic kidney disease with heart failure and stage 1 through stage 4 chronic kidney disease, or unspecified chronic kidney disease; I50.22 Chronic systolic (congestive) heart failure; J96.11 Chronic respiratory failure with hypoxia; I42.9 Cardiomyopathy, unspecified; E78.5 Hyperlipidemia, unspecified; J44.9 Chronic obstructive pulmonary disease, unspecified; E11.22 Type 2 diabetes mellitus with diabetic chronic kidney disease; N18.30 Chronic kidney disease, stage 3 unspecified; K31.819 Angiodysplasia of stomach and duodenum without bleeding; E87.5 Hyperkalemia; E11.65 Type 2 diabetes mellitus with hyperglycemia; G47.33 Obstructive sleep apnea (adult) (pediatric); Z86.711 Personal history of pulmonary embolism

== ENCOUNTER 2021-01-16 21:09 | Observation (INO) | payer MEDICARE, MEDICAID ==
[~2021-01-16] VITALS: Ht 188 cm; Wt 122.9 kg
--- NOTE | ~2021-01-16 | OP ---
PATIENT NAME: ALEXANDER ASHTON MEDICAL RECORD: [id number] :74 [id number] ADMISSION DATE:01/16/21 SURGEON: LALIT MARTINEZ MD DATE OF OPERATION: 01/17/2021 PROCEDURE: Left heart catheterization, selective coronary angiography, plus IFR to the circumflex, IFR wire to OM circ, right femoral artery approach. CATHETERS: A 5-Korean sheath, 5/4 left and right Ruben, 5/4 pig. The procedure was well tolerated. Performed IFR wire to the OM circ as well. FINDINGS: Left ventriculography in 30-degree ESTRADA view shows global hypokinesis, reduced EF, estimated EF 20% to 25%. CORONARY ANATOMY: Left main: Left main is free of disease. LAD: Free of disease in diagonal system. Circumflex: Has one OM, fairly large vessel, has questionable stenosis in mid portion; however, this is not significant via IFR wire. Right coronary artery: Dominant, gives rise to PDA, free of disease. IMPRESSION: No evidence of significant coronary artery disease including via IFR, decreased left ventricular function. We will add Aldactone to the underlying medical regime for aldosterone inhibition. Consider BiDil as an outpatient if pressure tolerates. TRANSINT:[id number] Voice Confirmation ID: [id number] DOCUMENT ID: [id number] LALIT MARTINEZ MD CC: [id number] DICTATION DATE: 01/17/21 1438 CONVERTER SKIMMER: 01/18/21 0003 DIS IN 01/17/21 [facility] [address] [place] [id number]
--- NOTE | ~2021-01-16 | HEMODYNAMI ---
PATIENT:ALEXANDER ASHTON MEDICAL RECORD: [id number] : 74 [facility]ATION:[facility] ADMISSION DATE: 01/16/21 Generatedon:114:35 Patient name: ALEXANDER ASHTON Patient #: [id number] SSN: [id number] : 1970 Date of study: 01/17/2021 Page: Of Hemodynamic Procedure Report Patient Data Patient Demographics Procedure consent was obtained First Name: ALEXANDER Gender: Male Last Name: DAISHA : 1970 Patient #: [id number] Age: 50 year(s) Race: Black SSN: [id number] Additional ID: [id number] Contact details [address]: [address] [place] [address] State: [place] City: [place] Zip code: [address] Past Medical History Allergies Allergen Reaction Date Comments Reported Other allergy 01/21/2020 CIPRO, TRAMADOL Admission Admission Data Admission Date: 01/16/2021 Admission Time: 23:49 Room #: D.CL02 Procedure Procedure Types Cath Procedure Diagnostic Procedure [facility] w/Coronaries FFR/IVUS FFR Initial Sedation Charges Moderate Sedation 10-24 minutes PCI Procedure Hemochron ACT Test Procedure Description Procedure Date Procedure Date: 01/17/2021 Procedure Start Time: 14:11 Procedure End Time: 14:34 Procedure Staff Name Function Francisco Benz MD Performing Physician Natalie Sosa RT Monitor Jacob Mathis RN Nurse Nathalia Sharma RT Scrub Procedure Data Cath Procedure Fluoroscopy Diagnostic fluoroscopy Total fluoroscopy Time: 5.3 time: 5.3 min min Diagnostic fluoroscopy Total fluoroscopy dose: 817 dose: 817 mGy mGy Contrast Material Contrast Material Type Amount (ml) Isovue 370 108 Entry Location Entry Primary Successful Side Size Upsize Upsize Entry Closure Succes sful Closure Location (Fr) 1 (Fr) 2 (Fr) Remarks Device Remarks Femoral Right 5 Fr 6 Fr Exoseal artery Short Estimated blood loss: 5 ml Diagnostic catheters Device Type Used For End Catheter Placement MULTIPACK JL 4.0 5Fr Left Coronary catheter Angiography MULTIPACK 3DRC 5Fr Right Coronary catheter Angiography MULTIPACK Pigtail 5 Fr LV Angiography catheter MULTIPACK JL 4.0 5Fr Procedure catheter Procedure Complications No complications Procedure Medications Medication Administration Route Dosage 0.9% NaCl I.V. 100 ml/hr Oxygen etCO2 Nasal cannula 2 l/min Heparin Flush Bag added to field 2 bags (1000units/500ml NS) Lidocaine 2% added to field 20 Versed I.V. 1 mg Fentanyl I.V. 50 mcg Versed I.V. 1 mg Fentanyl I.V. 50 mcg Versed I.V. 1 mg Fentanyl I.V. 50 mcg Versed I.V. 1 mg Fentanyl I.V. 50 mcg Heparin Bolus I.V. 3000 units Hemodynamics Rest Heart Rate: 88 (bpm) Pressure Samples Time Site Value (mmHg) Purpose Heart Use Rate(bpm) 14:13 AO 134/101(116) Snapshot 84 14:18 LV 149/65,63 Snapshot 87 Gradients Valve Time Site Site Mean SEP/DFP Peak To Heart Use 1 2 (mmHg) (sec/min) Peak Rate (mmHg) (bpm) Aortic 14:18 LV AO 89 Snapshots Pre Cath Intra NCS Post Cath Vital Signs Time Heart Resp SPO2 etCO2 NIBP (mmHg) Rhythm Pain Sedation Rate (ipm) (%) (mmHg) Status Level (bpm) 14:02:12 89 14 99 35.2 174/116(145) NSR 0 (11) 10(A) , No pain 14:06:51 87 13 100 36.7 167/105(117) NSR 0 (11) 10(A) , No pain 14:11:25 84 16 98 38.9 166/112(140) NSR 0 (11) 10(A) , No pain 14:17:02 85 17 100 36.7 145/104(0) NSR 0 (11) 9(A) , No pain 14:24:02 84 16 100 43.4 135/88(110) NSR 0 (11) 10(A) , No pain 14:31:49 85 14 99 45.7 119/99(113) NSR 0 (11) 10(A) , No pain Medications Time Medication Route Dose Verified Delivered Reason Notes Effectiveness by by 14:06:23 0.9% NaCl I.V. 100 Francisco Jacob used for ml/hr St Chas Mathis RN procedure 14:06:31 Oxygen etCO2 2 Francisco Jacob used for Nasal l/min St Chas Mathis RN procedure cannula 14:06:40 Heparin Flush added 2 Francisco Francisco used for Bag to bags [facility] procedure (1000units/500ml field MD MCGILL NS) 14:06:49 Lidocaine 2% added 20ml Francisco Francisco for local to vial [facility] anesthetic field MD MCGILL 14:10:18 Versed I.V. 1 mg Francisco Jacob for sedation St Chas Mathis RN, MD 14:10:25 Fentanyl I.V. 50 Francisco Jacob for sedation mcg St Chas Mathis RN, MD 14:13:01 Versed I.V. 1 mg Francisco Jacob for sedation St Chas Mathis RN, MD 14:13:05 Fentanyl I.V. 50 Francisco Jacob for sedation mcg St Chas Mathis RN, MD 14:14:39 Versed I.V. 1 mg Francisco Jacob for sedation St Chas Mathis RN, MD 14:14:43 Fentanyl I.V. 50 Francisco Jacob for sedation mcg St Chas Mathis RN, MD 14:16:10 Versed I.V. 1 mg Francisco Jacob for sedation St Chas Mathis RN, MD 14:16:13 Fentanyl I.V. 50 Francisco Jacob for sedation mcg St Chas Mathis RN, MD 14:19:15 Heparin Bolus I.V. 3000 Francisco Jacob for verif ied units St Chas Mathis RN anticoagulation with dr MD coon Procedure Log Time Note 13:48:12 Jacob Mathis RN sent for patient. Start room use. 13:48:13 Time tracking: Regular hours (M-F 7:00 - 5:00) 13:48:17 Plan of Care:Hemodynamics will remain stable., Cardiac rhythm will remain stable., Comfort level will be maintained., Respiratory function will remain adequate., Patient/ family verbilizes understanding of procedure., Procedure tolerated without complication., Recovers from procedure without complications.. 13:48:21 ACC Patient presents with Unstable Angina CCS Anginal Class 3--Marked limitation of physical activity, angina occurs with ordinary activity.. 13:48:30 ACCPatient has been prescribed/administered the following anti-anginal medication within the last 2 weeks: None 13:48:47 Procedure Status Urgent Heart Cath (IP). 13:52:29 Patient received from Pre/Post Procedure Room to CCL 1 Alert and oriented. Tansferred to table in Supine position. 13:52:32 Signed procedure consent form obtained from patient. 13:52:35 Warm blankets applied, and karen hugger turned on for patient comfort. 13:52:36 Correct patient and procedure confirmed by team. 13:52:37 ECG and BP/O2 sat monitors applied to patient. 13:52:38 Full Disclosure recording started 14:00:46 Vital chart was started 14:00:49 Rhythm: sinus rhythm 14:01:11 H&P Date Dictated: 01/17/2021 Within 30 days and on chart., ER History on chart.. 14:01:25 Pre-procedure instructions explained to patient. 14:01:26 Pre-op teaching completed and patient verbalized understanding. 14:01:28 Family in patients room. 14:01:30 Patient NPO since Midnight. 14:01:32 Is the patient allergic to Iodine/contrast media? No. 14:01:34 Is patient on blood thinner?No 14:01:38 Patient diabetic? Yes. 14:01:41 If diabetic: On Metformin? No 14:01:44 Previous problem with sedation/anesthesia? No ? 14:01:45 Snore? No 14:01:46 Sleep apnea? No 14:01:47 Deviated septum? No 14:01:48 Opens mouth fully? Yes 14:01:49 Sticks out tongue? Yes 14:01:50 Airway obstruction? No ? 14:01:52 Dentures? No ? 14:01:55 Pre procedure: right dorsailis pedis pulse 2+ Normal; easily identifiable; not easily obliterated 14:02:01 Patient pain scale 8/10 Chest. 14:02:07 IV patent on arrival in left forearm with 0.9% NaCl at [facility]. 14:02:11 Lab results completed and on chart. 14:02:16 Risk of Mortality: 0.2 14:02:19 Risk of blood transfusion: 4.3 14:02:22 Risk of BEATRIZ: 11.8 14:02:27 Right groin area was prepped with chlora-prep and draped in sterile fashion 14:02:28 Alarms reviewed by R. N. 14:02:29 Sharps counted by scrub and verified by R.N. 14:02:35 Use device set Femoral Dx 14:02:36 ACIST Syringe (71549) opened to sterile field. 14:02:37 Bag Decanter (2002S) opened to sterile field. 14:02:37 Medline Cath Pack ([id number]) opened to sterile field. 14:02:38 ACIST Hand Control (83754) opened to sterile field. 14:02:39 ACIST Manifold (03381) opened to sterile field. 14:02:39 DIAGNOSTIC Multipack 5Fr catheter set ([id number]) opened to sterile field. 14:02:42 SHEATH 5FR Dunbar (KKJ920) opened to sterile field. 14:02:42 EMERALD Guide Wire (827-696) opened to sterile field. 14:03:41 Baseline sample Acquired. 14:04:25 Physician arrived 14:06:23 0.9% NaCl 100 ml/hr I.V. was administered by Jacob Mathis RN; used for procedure; Verbal order read back and verified. 14:06:31 Oxygen 2 l/min etCO2 Nasal cannula was administered by Jacob Mathis RN; used for procedure; Verbal order read back and verified. 14:06:40 Heparin Flush Bag (1000units/500ml NS) 2 bags added to field was administered by Francisco Benz MD; used for procedure; Verbal order read back and verified. 14:06:49 Lidocaine 2% 20ml vial added to field was administered by Francisco Benz MD; for local anesthetic; Verbal order read back and verified. 14:07:38 Zero performed for pressure channel P1 14:09:25 Final Timeout: patient, procedure, and site verified with staff and physician. All members of the team are in agreement. 14:09:28 Right groin site verified by team. 14:09:36 Fire Safety Assessment: A--An alcohol-based skin anteseptic being used preoperatively., C--Open oxygen or nitrous oxide is being used., D--An ESU, laser, or fiber-optic light is being used. 14:09:52 Physical assessment completed. ASA score P 3 - A patient with severe systemic disease as per Francisco Benz MD. 14:09:58 3a) 45-59 Moderately reduced kidney function. 14:10:01 Maximum allowable contrast dose (3.7 X eGFR X 0.75)129 ml. 14:10:05 Sedation plan: IV Moderate Sedation Medication:Versed, Fentanyl 14:10:18 Versed 1 mg I.V. was administered by Jacob Mathis RN; for sedation; Verbal order read back and verified. 14:10:25 Fentanyl 50 mcg I.V. was administered by Jacob Mathis RN; for sedation; Verbal order read back and verified. 14:11:24 Procedure started. 14:11:27 Local anesthetic to right femoral artery with Lidocaine 2% by Francisco Benz MD.INITIAL ACCESS ONLY 14:12:11 A 5 Fr sheath was inserted into the Right Femoral artery 14:12:47 A MULTIPACK JL 4.0 5Fr catheter was advanced over the wire and used for Left Coronary Angiography. 14:13:01 Versed 1 mg I.V. was administered by Jacob Mathis RN; for sedation; Verbal order read back and verified. 14:13:05 Fentanyl 50 mcg I.V. was administered by Jacob Mathis RN; for sedation; Verbal order read back and verified. 14:14:35 Catheter removed. 14:14:39 Versed 1 mg I.V. was administered by Jacob Mathis RN; for sedation; Verbal order read back and verified. 14:14:43 Fentanyl 50 mcg I.V. was administered by Jacob Mathis RN; for sedation; Verbal order read back and verified. 14:14:49 A MULTIPACK 3DRC 5Fr catheter was advanced over the wire and used for Right Coronary Angiography. 14:16:10 Versed 1 mg I.V. was administered by Jacob Mathis RN; for sedation; Verbal order read back and verified. 14:16:13 Fentanyl 50 mcg I.V. was administered by Jacob Mathis RN; for sedation; Verbal order read back and verified. 14:16:37 Catheter removed. 14:17:02 A MULTIPACK Pigtail 5 Fr catheter was advanced over the wire and used for LV Angiography. 14:17:30 Gunter OmniWire (20249) opened to sterile field. 14:18:10 LV gram done using ESTRADA 14:18:18 LV hemodynamics recorded. 14:18:23 EF : 25 % 14:18:25 Injector settings: Ml/sec: 10, Volume: 20, 14:18:31 Catheter removed. 14:19:15 Heparin Bolus 3000 units I.V. was administered by Jacob Mathis RN; for anticoagulation; verified with dr coon Verbal order read back and verified. 14:19:49 A MULTIPACK JL 4.0 5Fr catheter was advanced over the wire and used for Procedure. 14:21:04 Pressure wire advanced. 14:27:34 Wire advanced across lesion. 14:28:22 Wire removed. 14:28:26 Catheter removed. 14:28:45 ACT drawn 14:28:53 EXOSEAL 5Fr (EX500) opened to sterile field. 14:28:54 Tegaderm 4 x 4 (1626W) opened to sterile field. 14:29:24 Sheath removed intact; hemostasis achieved with Exoseal to the Right Femoral artery. 14:29:35 Procedure ended.(Physican Out) 14:29:47 Fluoroscopy time 05.30 minutes. 14:29:50 Fluoroscopy dose: 817 mGy 14:29:50 Flurop Dose total: 817 14:29:54 Dose Area Product 80 mGy/cm. 14:29:58 Contrast amount:Isovue 370 108ml. 14:30:01 Maximum allowable dose exceeded? No. 14:30:01 Sharps counted by scrub and verified by R.N. 14:30:06 Post-op/insertion site Right Femoral artery dressed using a 4 x 4 and Tegaderm. 14:30:10 Post right femoral artery:stable, clean and dry 14:30:12 Post Procedure Pulses reassessed and unchanged 14:30:18 Post-procedure physical assessment completed. ASA score P 3 - A patient with severe systemic disease as per Francisco Benz MD. 14:30:26 Post procedure rhythm: unchanged. 14:30:39 Estimated blood loss: 5 ml 14:30:40 Post procedure instruction explained to patient.Patient verbalizes understanding. 14:30:42 Patient needs reinforcement of post procedure teaching. 14:31:03 Procedure type changed to Cath procedure, Diagnostic procedure, LHC, LHC w/Coronaries, FFR/IVUS, FFR Initial, Sedation Charges, Moderate Sedation 10-24 minutes, PCI procedure, Hemochron ACT Test 14:31:43 Procedure and supply charges have been captured, reviewed, submitted and are correct. 14:31:47 Procedure Complication : No complications 14:32:16 Operative report dictated upon procedure completion. 14:32:16 See physician's report for complete and final results. 14:32:42 Report given to Pre/Post Procedure Room. 14:33:54 ACT drawn and resulted at 209 seconds. (normal therapeutic range 180-240 seconds). 14:34:11 Vital chart was stopped 14:34:16 Patient transfered to Pre/Post Procedure Room with Stretcher. 14:34:23 Procedure ended. 14:34:23 Full Disclosure recording stopped 14:35:19 Natalie Counts RT(R) was relieved by Natalie Counts RT(R) as monitoring person 14:35:35 Natalie Counts RT(R) was relieved by Natalie Counts RT(R) as monitoring person Device Usage Item Name Manufacture Quantity Catalog Hospital Part Current Minimal L ot# / Number Charge Number Stock Stock Serial# Code ACIST Acist 1 11064 811601 818912 237666 20 Syringe Medical (56514) Systems Inc Bag Microtek 1 523463 30580 576063 5 Decanter Medical Inc. () Medline Medline 1 [id number] 523949 41650 679442 5 Cath Pack ([id number]) ACIST Hand Acist 1 84713 747701 600106 492689 5 Control Medical (81580) Systems Inc ACIST Acist 1 32826 506053 433466 881311 5 Manifold Medical (76068) Systems Inc DIAGNOSTIC Cardinal 1 [id number] 859982 19051 984702 30 Multipack Health 5Fr catheter set (BE2900) SHEATH 5FR Terumo 1 QXL630 259333 231471 877102 5 Dunbar (EIP423) EMERALD Cardinal 1 502-455 037745 064960 858874 5 Guide Wire Health (502-455) MULTIPACK Cardinal 1 445123 5 JL 4.0 5Fr Health catheter MULTIPACK Cardinal 1 505634 5 3DRC 5Fr Health catheter MULTIPACK Cardinal 1 821265 5 Pigtail 5 Health Fr catheter Gunter Gunter 1 0832742 153263 56427 9919 5 OmniWire (37135) EXOSEAL 5Fr Cardinal 1 EX500 066435 016627 960389 10 (EX500) Health Tegaderm 4 3M 1 1626W 947401 742263 118619 5 x 4 (1626W) Signature Audit [place] Stage Time Signature Unsigned Intra-Procedure 01/17/2021 Jacob Mathis RN 2:35:06 PM Intra-Procedure 01/17/2021 Natalie 2:35:25 PM Counts RT(R) Intra-Procedure 01/17/2021 Francisco Myers 2:35:55 PM Chas MCGILL [place] [address] [place] [address]
[2021-01-16 21:25] VITALS: Ht 188 cm; Wt 122.9 kg
[2021-01-16 21:59] LABS: BASOPHILS 1.6 % (0-2); EOSINOPHILS 3.8 % (0-7); HEMATOCRIT 40.5 % (42.0-54.0); HEMOGLOBIN 13.1 g/dL (13.5-17.5); LYMPHOCYTES 31.8 % (15-50); MCH 28.3 pg (26.0-34.0); MCHC 32.3 g/dL (31.0-37.0); MCV 87.7 fL (80.0-100.0); MEAN PLATELET VOLUME 8.9 fL (7.4-10.4); MONOCYTES 5.4 % (2-11); NEUTROPHILS 57.4 % (40-80); PLATELET COUNT 162 10x3/uL (130-400); RBC 4.62 10x6/uL (4.20-6.10); RDW 17.3 % (11.5-14.5); WBC 5.1 10x3/uL (4.8-10.8)
[2021-01-16 22:09] LABS: APTT 25.5 SECONDS (22.8-39.4); CALC OSMOLALITY 285 mosm/kg (275-300); CALCIUM 9.2 mg/dL (8.5-10.1); CHLORIDE - SERUM 101 mmol/L (98-107); CREATININE - SERUM 1.7 mg/dL (0.6-1.3); GLUCOSE 239 mg/dL (74-106); INR 1.03 (0.85-1.17); POTASSIUM - SERUM 4.2 mmol/L (3.5-5.1); PROTIME 12.5 SECONDS (11.6-15.0); SODIUM 138 mmol/L (136-145); UREA NITROGEN 17 mg/dL (7-18); eGFR NON AFRICAN AMERICAN 46 mL/min (90-120)
[2021-01-16 22:22] VITALS: BP 159/90
[2021-01-16 22:27] LABS: ALBUMIN 3.5 g/dL (3.4-5.0); ALKALINE PHOSPHATASE 140 U/L (30-120); ALT (SGPT) 22 U/L (10-68); BILIRUBIN - TOTAL 0.36 mg/dL (0.2-1.3); CKMB 1.1 U/L (0.0-3.6); CREATINE KINASE 137 UL (21-232); MAGNESIUM - SERUM 1.5 mg/dL (1.8-2.4); PRO BNP 2619 pg/mL (0-125); PROTEIN - SERUM 7.5 g/dL (6.4-8.2); TROPONIN-I < 0.017 ng/mL (0.000-0.060)
[2021-01-17 00:05] VITALS: BP 178/94
[2021-01-17 00:42] LABS: CKMB 1.1 U/L (0.0-3.6); CREATINE KINASE 127 UL (21-232)
[2021-01-17 00:45] LABS: TROPONIN-I < 0.017 ng/mL (0.000-0.060)
[2021-01-17 01:09] VITALS: BP 138/95
[2021-01-17 02:46] VITALS: BP 101/66
[2021-01-17 04:39] VITALS: BP 117/76
[2021-01-17 04:59] LABS: BASOPHILS 1.1 % (0-2); EOSINOPHILS 4.1 % (0-7); HEMATOCRIT 37.1 % (42.0-54.0); MCH 28.5 pg (26.0-34.0); MCHC 32.3 g/dL (31.0-37.0); MCV 88.3 fL (80.0-100.0); MEAN PLATELET VOLUME 8.9 fL (7.4-10.4); MONOCYTES 7.4 % (2-11); NEUTROPHILS 49.4 % (40-80); PLATELET COUNT 151 10x3/uL (130-400); RBC 4.21 10x6/uL (4.20-6.10); RDW 16.9 % (11.5-14.5); WBC 4.7 10x3/uL (4.8-10.8)
[2021-01-17 07:02] LABS: ALBUMIN 3.2 g/dL (3.4-5.0); ALKALINE PHOSPHATASE 117 U/L (30-120); ALT (SGPT) 21 U/L (10-68); BILIRUBIN - TOTAL 0.37 mg/dL (0.2-1.3); CALC OSMOLALITY 286 mosm/kg (275-300); CALCIUM 8.9 mg/dL (8.5-10.1); CARBON DIOXIDE 27.1 mmol/L (21.0-32.0); CHLORIDE - SERUM 103 mmol/L (98-107); CKMB 0.8 U/L (0.0-3.6); CREATINE KINASE 111 UL (21-232); GLUCOSE 210 mg/dL (74-106); MAGNESIUM - SERUM 1.6 mg/dL (1.8-2.4); PHOSPHOROUS 3.5 mg/dL (2.5-4.9); POTASSIUM - SERUM 4.3 mmol/L (3.5-5.1); PROTEIN - SERUM 6.7 g/dL (6.4-8.2); SODIUM 140 mmol/L (136-145); UREA NITROGEN 18 mg/dL (7-18); eGFR NON AFRICAN AMERICAN 38 mL/min (90-120)
[2021-01-17 07:18] LABS: TROPONIN-I < 0.017 ng/mL (0.000-0.060)
[2021-01-17 07:19] LABS: CHOL - HDL RATIO 4.8 ratio (2.3-4.9); LDL-HDL RATIO 2.7 ratio (1.5-3.5)
[2021-01-17 10:30] VITALS: BP 114/48
[2021-01-17 11:30] LABS: CKMB 0.8 U/L (0.0-3.6); CREATINE KINASE 107 UL (21-232); TROPONIN-I < 0.017 ng/mL (0.000-0.060)
[2021-01-17] MEDS ORDERED: CARAFATE1 G PO (14:40)
--- NOTE | 2021-01-17 14:40 | NUR ---
PT ARRIVED BY STRETCHER. PLACED ON MONITORS. ASSESSMENT COMPLETED. VSS AT THIS TIME. CALL LIGHT WITHIN REACH. NO OTHER NEEDS AT THIS TIME.
--- NOTE | 2021-01-17 14:55 | NUR ---
PT RESTING COMFORTABLY. RIGHT GROIN DRESSING C/D/I. NO S/S OF HEMATOMA NOTED. CALL LIGHT WITHIN REACH. PT DENIES NAUSEA. TOLERATING SIPS OF WATER. TALKING ON TELEPHONE TO FRIENDS.
[2021-01-17] MEDS ORDERED: ALDACTONE25 MG PO (15:01)
--- NOTE | 2021-01-17 15:05 | NUR ---
DR. MARTINEZ ROUNDED AND SPOKE WITH PT. STARTING PT ON ALDACTONE. RX PLACED IN PT'S FOLDER.
--- NOTE | 2021-01-17 15:40 | NUR ---
RIGHT GROIN DRESSING C/D/I. NO S/S OF HEMATOMA NOTED. RIGHT PEDAL PULSE PALPABLE. HEAD OF BED INC TO 30 DEGREES. TOLERATED WELL. PT DENIES NAUSEA/PAIN. PT SET UP WITH SANDWICH TRAY AND SODA. NO OTHER NEEDS AT THIS TIME.
--- NOTE | 2021-01-17 16:20 | NUR ---
RIGHT GROIN DRESSING C/D/I. NO S/S OF HEMATOMA NOTED. RIGHT PEDAL PULSE PALPABLE. DISCUSSED DISCHARGE INSTRUCTIONS WITH PT. HE VOICED UNDERSTANDING. PIV D/C'D WITH CATH TIP INTACT. TOLERATED WELL. PT INSTRUCTED TO GET UP AND DRESSED. NO ASSISTANCE NEEDED. CALL LIGHT WITHIN REACH.
--- NOTE | 2021-01-17 16:31 | NUR ---
PT AMBULATED TO RESTROOM. VOIDED WITHOUT DIFFICULTY. STEADY GAIT NOTED. RIGHT GROIN DRESSING C/D/I. NO S/S OF HEMATOMA NOTED. PT WAITING ON RIDE TO GET HERE FOR [place] [employer].
--- NOTE | 2021-01-17 17:00 | NUR ---
PT SITTING IN ROOM. HE REPORTS HE IS UNABLE TO GET AHOLD OF HIS FRIEND THAT IS SUPPOSED TO BE PICKING HIM UP. ASKS IF HE CAN WALK. I GAVE HIM THE NUMBER TO A [employer]. HE IS CALLING A FRIEND TO FIND OUT HIS ADDRESS OF WHERE HE IS STAYING. PT INSTRUCTED TO WAIT HERE UNTIL WE CAN FIND HIM A RIDE HOME.
--- NOTE | 2021-01-17 17:30 | NUR ---
PT SAID THAT THE [employer] HAD BUSY SIGNAL. REFUSED TO HAVE US CALL. REFUSED TO CALL ANYONE ELSE. STATES HE LIVES RIGHT DOWN THE ROAD AND WANTS TO WALK. I INFORMED HIM THAT HE SHOULDN'T WALK TO HIS HOUSE. PT IS ALERT AND ORIENTED X 4. STEADY GAIT NOTED WHEN WALKING. AMBULATED TO RESTROOM AND VOIDED WITHOUT DIFFICULTY. I CONTINUED TO TRY AND TALK THE PT INTO LETTING ME ASSIST HIM WITH A RIDE HOME. HE REFUSED AND WALKED DOWN THE GAO TOWARDS THE EXIT STATING "I LIVE RIGHT DOWN THE HOME AND I'LL JUST WALK BEORE IT GETS TOO LATE". I WALKED WITH PT AND SHOWED HIM THE ER EXIT. HE REFUSED WHEELCHAIR RIDE. RIGHT GROIN WAS SOFT AND PT REPORTS THAT HE "FEELS FINE". DENIES PAIN. NO S/S OF DISTRESS NOTED. ALL BELONINGS AND PAPERWORK IN HAND.
== END 2021-01-17 17:30 | disposition home or self-care (01) ==
LOC: D.ER 21:09 → D.EDHOLD 23:49 → D.CLR 23:49 → D.EDHOLD 23:49 → OBSVTIME 23:50 → D.CLR 01-17 10:35
PROVIDERS: Emergency Medicine; Internal Medicine Cardiovascular Disease; ADMIT Emergency Medicine; ATTEND Emergency Medicine
DX: I20.0 Unstable angina (principal); R07.9 Chest pain, unspecified; J44.9 Chronic obstructive pulmonary disease, unspecified; Z79.4 Long term (current) use of insulin; E11.65 Type 2 diabetes mellitus with hyperglycemia; I50.20 Unspecified systolic (congestive) heart failure; N18.9 Chronic kidney disease, unspecified; I12.9 Hypertensive chronic kidney disease with stage 1 through stage 4 chronic kidney disease, or unspecified chronic kidney disease; I42.9 Cardiomyopathy, unspecified; E11.22 Type 2 diabetes mellitus with diabetic chronic kidney disease